=== PATIENT | female | born 1945 | race Caucasian/White ===

== ENCOUNTER → 2017-09-15 | Outpatient (CLI) | payer BC ==
[~2017-09-15] MED LIST: AMLO2.5T PO; BNC/40 PO; NXM/40 PO; RANI300T2 PO; SIMV5TAB2 PO
--- NOTE | 2017-09-18 08:13 | MAMMOGRAPHY REPORT ---
BILATERAL DIGITAL SCREENING MAMMOGRAM TOMOSYNTHESIS WITH CAD: 09/15/2017 CLINICAL HISTORY: Routine screening. Patient has no complaints. TECHNIQUE: Breast tomosynthesis in addition to standard 2D mammography was performed. Current study was also evaluated with a Computer Aided Detection (CAD) system. COMPARISON: Comparison is made to exams dated: 08/20/2016 mammogram, 08/17/2015 mammogram, 12/25/2014 ultrasound, 12/25/2014 mammogram, 06/19/2014 aspiration, and 06/01/2014 ultrasound - [facility]. BREAST COMPOSITION: There are scattered areas of fibroglandular density in both breasts. FINDINGS: No suspicious masses, calcifications, or areas of architectural distortion are noted in ei ther breast. There has been no significant interval change compared to prior exams. Scattered bilater al benign-appearing calcifications are not significantly changed. Circumscribed benign-appearing 9 m m mass in the left 9:00 breast is again noted, and returned represent a benign cyst on prior ultrasou nd exams. IMPRESSION: ACR BI-RADS CATEGORY 2: BENIGN There is no mammographic evidence of malignancy. A 1 year screening mammogram is recommended. The pa tient will receive written notification of the results. Approximately 10% of breast cancers are not detected with mammography. A negative mammographic report should not delay biopsy if a clinically suggestive mass is present. Miya Lagos M.D. /:09/15/2017 15:53:48 Bean Roaster: Lisa HODGESR, M, [facility] letter sent: Normal 1/2 BI-RADS Code: ACR BI-RADS Category 2: Benign
== END | disposition home or self-care (01) ==
LOC: C.MAMM 15:15
PROVIDERS: ATTEND Internal Medicine
DX: Z12.31 Encounter for screening mammogram for malignant neoplasm of breast (principal)

== ENCOUNTER 2017-09-30 18:44 | Emergency (ER) | payer BC ==
[~2017-09-30] VITALS: Ht 167.6 cm; Wt 64.3 kg
[2017-09-30 18:48] VITALS: TEMP 36.8; Ht 167.6 cm; Wt 64.3 kg
[2017-09-30] MEDS ORDERED: DIAZEPAM INJ 5 MG/ML 2 ML CARP IV STA (19:25)
--- NOTE | 2017-09-30 19:25 | EMERGENCY ROOM VISIT NOTE ---
History Report prepared by Stevan: Catrina Archuleta Under the Supervision of: Gabi BarclayO. First contact with patient: 18:58 Chief Complaint: HEADACHE Stated Complaint: HEADACHE,BLURRED VISION,BRUISING L EYE History of Present Illness The patient is a 72 year old female who presents to the Emergency Room with complaints of an intermittent left sided headache beginning 5 days ago. Four days ago, the patient states she had some redness to the skin below her left eye and a headache. She also reports pain that starts in her left shoulder and radiates to her left sided neck. She states this pain resides when she pushes on her neck. She reports the redness to the skin under her left eye dissipated 3 days ago. The patient notes some nausea, fatigue, lightheadedness, room spinning, and blurry vision. She states that she used to get migraines and a "headache in her eyes" about 10 years ago. She denies any more current history of headache. The patient reports she has been exercising more but denies any recent falls or injury. Pt denies arm pain, numbness, tingling, light sensitivity, fevers, chest pain, shortness of breath, vomiting, diarrhea, pain with urination, and melena. Source of History: patient Onset: 5 days ago Position: head Quality: ache Timing: intermittent Modifying Factors (Relieving): other (pushing on neck) Associated Symptoms: + headache, + neck pain, + nausea, + fatigue, No chest pain, No SOB, No vomiting, No urinary symptoms, No numbness Review of Systems See HPI for pertinent positives & negatives. A total of 10 systems reviewed and were otherwise negative. Past Medical & Surgical Medical Problems: (1) No Known Active Medical Problems Family History Patient reports no known family medical history. Social History Smoking Status: Never Smoker Marital Status: Housing Status: lives with significant other Occupation Status: retired Current/Historical Medications Scheduled Amlodipine (Norvasc), 2 TAB PO QAM Aspirin (Aspirin Ec), 81 MG PO DAILY Calcium Carbonate-Vitamin D (Calcium Plus Vitamin D), 2 CAP PO DAILY Chlorhexidine Gluconate (Chlorhexidine Gluconate), 1 DOSE PO UD Glucosamine Sulfate (Glucosamine), 1,000 MG PO DAILY Losartan Potassium (Cozaar), 1 TAB PO DAILY Multiple Vitamin (Multivitamin), 1 TAB PO DAILY Simvastatin (Simvastatin), 1 TAB PO QPM Allergies Coded Allergies: Lidocaine (Verified Allergy, Unknown, ., 09/30/17) Aspirin (Verified Adverse Reaction, Severe, HX OF ULCERS, 09/30/17) Physical Exam Vital Signs Date Time Temp Pulse Resp B/P (MAP) Pulse Ox O2 Delivery O2 Flow Rate FiO2 09/30/17 21:00 57 18 147/62 97 Room Air 09/30/17 18:48 36.8 64 20 161/74 97 Room Air Physical Exam GENERAL: alert, well appearing, well nourished, no distress, non-toxic EYE EXAM: normal conjunctiva, PERRL and EOM's grossly intact, no pain with palpation over temples and no abnormalities noted during palpation of temporal area OROPHARYNX: no exudate, no erythema, lips, buccal mucosa, and tongue normal and mucous membranes are moist NECK: supple, no nuchal rigidity, no adenopathy, non-tender LUNGS: Clear to auscultation. Normal chest wall mechanics HEART: no murmurs, S1 normal and S2 normal ABDOMEN: abdomen soft, non-tender, normo-active bowel sounds, no masses, no rebound or guarding. BACK: Back is symmetrical on inspection and there is no deformity, no midline tenderness, no CVA tenderness. SKIN: no rashes and no bruising UPPER EXTREMITIES: upper extremities are grossly normal. Mild increased hypertonicity noted in bilateral trapezius muscles. No bony tenderness at shoulder, full range of motion bilaterally. LOWER EXTREMITIES: No pitting edema. NEURO EXAM: Normal sensorium, cranial nerves II-XII intact, normal speech, no weakness of arms, no weakness of legs. No drift. Finger to nose intact. Gross sensation intact. Medical Decision & Procedures ER Provider Diagnostic Interpretation: Radiology results have been interpreted by the radiologist and reviewed by me. CT ANGIOGRAM OF THE BRAIN COMBO FINDINGS: Brain parenchyma: The brain parenchyma is normal in appearance. There is no hemorrhage, mass effect, or evidence of acute territorial ischemia by CT criteria. There is no evidence of enhancing mass lesion on the angiogram phase images. No extra-axial fluid collection is seen. White-white matter differentiation is preserved. Ventricles, sulci, and cisterns: Normal in configuration. CT angiogram of the brain: The [place] of [place] is developmentally complete. The internal carotid arteries are widely patent, as are the anterior and middle cerebral arteries. The vertebrobasilar system and posterior cerebral arteries are widely patent. The left vertebral artery is dominant. There is no aneurysm, high-grade stenosis, or focal vessel cutoff identified throughout the intracranial circulation. Dural sinuses: Clear as visualized. Orbits: The bony orbits are intact. The orbital contents are normal as visualized. Sinuses and mastoids: The visualized paranasal sinuses are clear. The mastoid air cells are well pneumatized. Calvarium: Unremarkable. IMPRESSION: 1. There is no hemorrhage, mass effect, or evidence of acute territorial ischemia by CT criteria. 2. Unremarkable CT angiogram of the brain. Electronically signed by: Luis Daniel Puente M.D. Laboratory Results 09/30/17 19:40 Red Blood Count 4.62, Mean Corpuscular Volume 87.0, Mean Corpuscular Hemoglobin 28.4, Mean Corpuscular Hemoglobin Concent 32.6, Mean Platelet Volume 9.8, Neutrophils (%) (Auto) 60.0, Lymphocytes (%) (Auto) 29.8, Monocytes (%) (Auto) 5.4, Eosinophils (%) (Auto) 4.3, Basophils (%) (Auto) 0.4, Neutrophils # (Auto) 4.86, Lymphocytes # (Auto) 2.41, Monocytes # (Auto) 0.44, Eosinophils # (Auto) 0.35, Basophils # (Auto) 0.03 09/30/17 19:40 Test 09/30/17 19:40 White Blood Count 8.10 K/uL (4.8-10.8) Red Blood Count 4.62 M/uL (4.2-5.4) Hemoglobin 13.1 g/dL (12.0-16.0) Hematocrit 40.2 % (37-47) Mean Corpuscular Volume 87.0 fL (80-100) Mean Corpuscular Hemoglobin 28.4 pg (25-34) Mean Corpuscular Hemoglobin Concent 32.6 g/dl (32-36) Platelet Count 265 K/uL (130-400) Mean Platelet Volume 9.8 fL (7.4-10.4) Neutrophils (%) (Auto) 60.0 % Lymphocytes (%) (Auto) 29.8 % Monocytes (%) (Auto) 5.4 % Eosinophils (%) (Auto) 4.3 % Basophils (%) (Auto) 0.4 % Neutrophils # (Auto) 4.86 K/uL (1.4-6.5) Lymphocytes # (Auto) 2.41 K/uL (1.2-3.4) Monocytes # (Auto) 0.44 K/uL (0.11-0.59) Eosinophils # (Auto) 0.35 K/uL (0-0.5) Basophils # (Auto) 0.03 K/uL (0-0.2) RDW Standard Deviation 42.8 fL (36.4-46.3) RDW Coefficient of Variation 13.4 % (11.5-14.5) Immature Granulocyte % (Auto) 0.1 % Immature Granulocyte # (Auto) 0.01 K/uL (0.00-0.02) Anion Gap 4.0 mmol/L (3-11) Est Creatinine Clear Calc Drug Dose 74.3 ml/min Estimated GFR () 103.5 Estimated GFR (Non- 89.3 BUN/Creatinine Ratio 24.0 (10-20) Calcium Level 8.7 mg/dl (8.5-10.1) Total Bilirubin 0.3 mg/dl (0.2-1) Aspartate Amino Transf (AST/SGOT) 18 U/L (15-37) Alanine Aminotransferase (ALT/SGPT) 31 U/L (12-78) Alkaline Phosphatase 115 U/L (45-117) Troponin I < 0.015 ng/ml (0-0.045) Total Protein 7.4 gm/dl (6.4-8.2) Albumin 3.8 gm/dl (3.4-5.0) Globulin 3.6 gm/dl (2.5-4.0) Albumin/Globulin Ratio 1.1 (0.9-2) Thyroid Stimulating Hormone (TSH) 1.300 uIu/ml (0.300-4.500) Laboratory results per my review. Medications Administered Medications (Trade) Dose Ordered Sig/Lavinia Route Start Time Stop Time Status Last Admin Dose Admin Diazepam (Valium Inj) 2.5 mg NOW STAT IV 09/30/17 19:25 09/30/17 19:26 DC 09/30/17 19:25 2.5 MG Ketorolac Tromethamine (Toradol Inj) 15 mg NOW STAT IV 09/30/17 21:13 09/30/17 21:14 DC 09/30/17 21:30 15 MG ED Course 1902: The patient was evaluated in room C7. A complete history and physical exam was performed. 1924: Ordered Valium Inj 2.5 mg IV. 2112: Ordered Toradol 15 mg IV. 2116: I updated the patient on her test results. She is resting comfortably. 2128: Upon reevaluation, the patient is feeling better. I discussed the findings and the treatment plan with the patient. She verbalizes agreement and understanding. The patient was discharged home. Medical Decision Differential diagnosis: Etiologies such as migraine headache, meningitis, sinusitis, CO exposure, ICH, SAH, infection, tumor, headache, sinus thrombosis, arterial dissection, as well as others were entertained. Patient well-appearing here and symptoms most consistent with a tension headache versus atypical migraine or combination of the tube. I do not suspect temporal arteritis, dissection, subarachnoid hemorrhage, meningitis. Patient with a normal nonfocal neuro exam, no other symptoms noted. Given symptoms greater than 8 hours and a negative troponin I do not suspect this is an atypical presentation of ACS. She well-appearing here hemodynamically stable throughout, agreeable with plan for close follow-up and continue monitoring of her symptoms. Encouraged adequate hydration, avoiding any additional upper body exertion or strenuous lifting in the short-term. Discussed symptoms to watch and return for, she verbalized understanding was agreeable with plan. Medication Reconcilliation Current Medication List: was personally reviewed by me Blood Pressure Screening Patient's blood pressure: Elevated blood pressure Blood pressure disposition: Elevated BP felt to be situational Impression Primary Impression: Headache Scribe Attestation The scribe's documentation has been prepared under my direction and personally reviewed by me in its entirety. I confirm that the note above accurately reflects all work, treatment, procedures, and medical decision making performed by me. Departure Information Dispostion Home / Self-Care Referrals Simba Ray M.D. (PCP) Forms HOME CARE DOCUMENTATION FORM, IMPORTANT VISIT INFORMATION Patient Instructions My [facility] Additional Instructions Please follow up with your family doctor as a precaution. You may use Tylenol as needed for headaches, and may apply a warm compress or heating pad to the left shoulder as needed. Do not leave it on any longer than 30 minutes. If you develop recurrent or worsening headaches or shoulder pain, develop numbness or tingling, vision changes, dizziness, vomiting, fevers, or you have any other new concerns, please return the emergency room. Problem Qualifiers Primary Impression: Headache Headache type: unspecified Headache chronicity pattern: episodic headache Intractability: not intractable Qualified Codes: R51 - Headache
[2017-09-30] MEDS ORDERED: OPTIRAY 320 IV PRN (19:30)
[2017-09-30] MEDS ORDERED: PRDUDL5 PO (19:38)
[2017-09-30] MEDS ORDERED: LOSA100T65 PO (19:38)
[2017-09-30] MEDS ORDERED: MULTTAB58 PO (19:38)
[2017-09-30] MEDS ORDERED: SIMV-151 PO (19:38)
[2017-09-30] MEDS ORDERED: GLUC10007 PO (19:38)
[2017-09-30] MEDS ORDERED: ASPI81TA28 PO (19:38)
[2017-09-30] MEDS ORDERED: CALCCAP7 PO (19:38)
[2017-09-30 19:54] LABS: BASO % 0.4 %; BASO ABS # 0.03 K/uL (0-0.2); COMPLETE YES; EOS % 4.3 %; HEMATOCRIT 40.2 % (37-47); IG% 0.1 %; LYMPH % 29.8 %; LYMPH ABS # 2.41 K/uL (1.2-3.4); MEAN CORPUSCULAR HEMOGLOBIN 28.4 pg (25-34); MEAN CORPUSCULAR HGB CONC 32.6 g/dl (32-36); MEAN PLATELET VOLUME 9.8 fL (7.4-10.4); MONO % 5.4 %; PLATELET COUNT 265 K/uL (130-400); RED BLOOD COUNT 4.62 M/uL (4.2-5.4)
[2017-09-30 20:14] LABS: ALT/SGPT 31 U/L (12-78); AST/SGOT 18 U/L (15-37); BLOOD UREA NITROGEN 16 mg/dl (7-18); CALCIUM 8.7 mg/dl (8.5-10.1); CARBON DIOXIDE 29 mmol/L (21-32); CHLORIDE 106 mmol/L (98-107); CREATININE 0.65 mg/dl (0.60-1.20); GLUCOSE 117 mg/dl (70-99); POTASSIUM 3.6 mmol/L (3.5-5.1); SODIUM 139 mmol/L (136-145)
[2017-09-30 20:25] LABS: ALB/GLOB RATIO 1.1 (0.9-2); ALKALINE PHOSPHATASE 115 U/L (45-117)
[2017-09-30 21:00] VITALS: BP 147/62; PULSE 57; O2SAT 97
--- NOTE | 2017-09-30 21:06 | DIAGNOSTIC IMAGING REPORT ---
CT ANGIOGRAM OF THE BRAIN COMBO CLINICAL HISTORY: Headache. COMPARISON STUDY: CT of the brain dated 11/20/2011. TECHNIQUE: Unenhanced axial CT scan of the brain is performed. Subsequently, following the IV administration of 120 cc of Optiray 320, CT angiogram of the brain was performed from the skull base to the vertex. Images are reviewed in the axial, sagittal, and coronal planes. 3-D MIPS images are created and assessed. IV contrast was administered without complication. A dose lowering technique was utilized adhering to the principles of ALARA. CT DOSE: 661.08 mGy.cm FINDINGS: Brain parenchyma: The brain parenchyma is normal in appearance. There is no hemorrhage, mass effect, or evidence of acute territorial ischemia by CT criteria. There is no evidence of enhancing mass lesion on the angiogram phase images. No extra-axial fluid collection is seen. White-white matter differentiation is preserved. Ventricles, sulci, and cisterns: Normal in configuration. CT angiogram of the brain: The [place] is developmentally complete. The internal carotid arteries are widely patent, as are the anterior and middle cerebral arteries. The vertebrobasilar system and posterior cerebral arteries are widely patent. The left vertebral artery is dominant. There is no aneurysm, high-grade stenosis, or focal vessel cutoff identified throughout the intracranial circulation. Dural sinuses: Clear as visualized. Orbits: The bony orbits are intact. The orbital contents are normal as visualized. Sinuses and mastoids: The visualized paranasal sinuses are clear. The mastoid air cells are well pneumatized. Calvarium: Unremarkable. IMPRESSION: 1. There is no hemorrhage, mass effect, or evidence of acute territorial ischemia by CT criteria. 2. Unremarkable CT angiogram of the brain. Electronically signed by: Luis Daniel Puente M.D. 09/30/2017 9:05 PM Dictated Date/Time: 09/30/2017 9:00 PM
[2017-09-30] MEDS ORDERED: KETOROLAC TROMETHAMINE 30 MG/ML VIAL IV STA (21:13)
== END 2017-09-30 21:40 | disposition home or self-care (01) ==
LOC: C.EDB 18:46 → C.EDC 21:40
DX: R51 Headache (principal)

== ENCOUNTER → 2017-10-02 | Outpatient (CLI) | payer BC ==
[~2017-10-02] MED LIST changes: +ASPI81TA28 PO; -BNC/40 PO; +CALCCAP7 PO; +GLUC10007 PO; +LOSA100T65 PO; +MULTTAB58 PO; -NXM/40 PO; +PRDUDL5 PO; -RANI300T2 PO; +SIMV-151 PO; -SIMV5TAB2 PO
== END | disposition home or self-care (01) ==
LOC: C.LABBC 10:16
PROVIDERS: ATTEND Internal Medicine
DX: R51 Headache (principal)

== ENCOUNTER → 2018-05-19 | Outpatient (CLI) | payer BC ==
[~2018-05-19] MED LIST changes: +CHOL1000 PO; -PRDUDL5 PO
[2018-05-19 13:24] LABS: ALT/SGPT 36 U/L (12-78); AST/SGOT 22 U/L (15-37); BLOOD UREA NITROGEN 13 mg/dl (7-18); CALCIUM 8.5 mg/dl (8.5-10.1); CARBON DIOXIDE 28 mmol/L (21-32); CHOLESTEROL 120 mg/dl (0-200); CREATININE 0.73 mg/dl (0.60-1.20); GLUCOSE 117 mg/dl (70-99); LDL CHOLESTEROL CALCULATED 47 mg/dl; SODIUM 141 mmol/L (136-145)
[2018-05-19 13:29] LABS: HEMOGLOBIN A1C 6.2 % (4.5-5.6)
[2018-05-19 14:27] LABS: CREATININE RANDOM URINE 62.6 mg/dl
== END | disposition home or self-care (01) ==
LOC: C.LABBC 07:52
PROVIDERS: ATTEND Internal Medicine
DX: I10 Essential (primary) hypertension (principal); E78.5 Hyperlipidemia, unspecified; E11.9 Type 2 diabetes mellitus without complications

== ENCOUNTER → 2018-06-08 | Outpatient (CLI) | payer BC | END | disposition home or self-care (01) | LOC: C.PAPS 14:47 | PROVIDERS: ATTEND Obstetrics & Gynecology | DX: Z12.4 Encounter for screening for malignant neoplasm of cervix (principal); Z78.0 Asymptomatic menopausal state ==

== ENCOUNTER 2021-04-25 12:26 | Observation (INO) ==
[2021-04-25 12:50] LABS: Basophils # (auto) 0.02 K/uL (0-0.2); Basophils % (auto) 0.3 %; Eosinophils # (auto) 0.13 K/uL (0-0.5); Eosinophils % (auto) 1.8 %; Hematocrit (blood only) 38.8 % (37-47); Hemoglobin 13.5 g/dL (12.0-16.0); Immature Granulocytes # (auto) 0.02 K/uL (0.00-0.02); Immature Granulocytes % (auto) 0.3 %; Lymphocytes # (auto) 1.56 K/uL (1.2-3.4); Lymphocytes % (auto) 21.3 %; Mean Corpuscular Hemoglobin 30.4 pg (25-34); Mean Corpuscular Hgb Conc 34.8 g/dL (32-36); Mean Corpuscular Volume 87.4 fL (80-100); Monocytes # (auto) 0.49 K/uL (0.11-0.59); Monocytes % (auto) 6.7 %; Neutrophils % (auto) 69.6 %; Platelet Count 234 K/uL (130-400); RDW Coefficient of Variation 13.3 % (11.5-14.5); RDW Standard Deviation 42.8 fL (36.4-46.3); Red Blood Count 4.44 M/uL (4.2-5.4); White Blood Count 7.32 K/uL (4.8-10.8)
--- NOTE | 2021-04-25 13:02 | XRay Report ---
XR chest 1V portable HISTORY: weakness COMPARISON: None. FINDINGS: The lungs are clear. Cardiac silhouette is normal in size. No pleural effusions. No pneumot horax. IMPRESSION: No acute process. ACT 112: Negative or not required by law. Electronically signed by: Juan Martinez M.D. 04/25/2021 1:01 PM
[2021-04-25 13:03] LABS: Alanine Aminotransferase 36 U/L (12-78); Albumin Level 4.1 gm/dl (3.4-5.0); Aspartate Aminotransferase 20 U/L (15-37); BUN Creatinine Ratio 29.1 (10-20); Blood Urea Nitrogen 18 mg/dl (7-18); Calcium 9.5 mg/dl (8.5-10.1); Carbon Dioxide 29 mmol/L (21-32); Chloride 107 mmol/L (98-107); Creatinine Clr Calc Pharmacy 67.7 ml/min; Est GFR (African American) 102.4 ml/min; Est GFR (Non-African American) 88.4 ml/min; Glucose 149 mg/dl (70-99); Potassium 3.6 mmol/L (3.5-5.1); Sodium 140 mmol/L (136-145)
[2021-04-25 13:14] LABS: Albumin Globulin Ratio 1.2 (0.9-2); Alkaline Phosphatase 93 U/L (45-117); Bilirubin,Total 0.6 mg/dl (0.2-1); Globulin 3.3 gm/dl (2.5-4.0); Total Protein 7.4 gm/dl (6.4-8.2); Troponin I < 0.015 ng/ml (0-0.045)
--- NOTE | 2021-04-25 14:08 | Emergency Department Note ---
Impression & Plan Vasovagal syncope, Dehydration ED Provider Note NAME: CHAD DAY AGE: 75 SEX: F : 1945 ARRIVES VIA: Ambulance INFORMANT: Patient, ED PROVIDER(S): Rah Davidson MD Chief Complaint: Syncope HPI: Patient does present from home due to concern for syncope which occurred around 11 AM this morning. The patient was on the toilet trying to have a bowel movement at which time the patient did have some intestinal cramping. The patient syncopal event lasted approximately 30 seconds per the who witnessed this. She did not fall or strike her head. He was able to wake her up on the commode. Patient did have one episode of vomiting in route in the ambulance. The patient did receive Zofran which improved her symptoms. The patient denies any headache, neck pain, chest pain, shortness of breath. Patient has no lower extremity swelling. No infectious symptoms. The patient is vaccinated for Covid. The patient denies any alcohol or tobacco use. Patient believes that she has been eating and drinking appropriately the last several days. The patient has greatly reduced her carbs as her primary care physician had advised that she needs to monitor her sugars. Patient denies any numbness tingling or focal weakness. ROS: See HPI for pertinent positives and negatives. A total of 10 systems were reviewed and otherwise negative. Past medical history: See below Surgical history: See below Social history: See below Physical Exam: GENERAL: Fatigued in appearance, no apparent distress, wearing a mask. EYE EXAM: Normal conjunctiva. PERRL, no anisocoria and EOM's grossly intact w/o pain. NECK: Supple, no nuchal rigidity, no adenopathy, non-tender. No signs of meningismus. LUNGS: Clear to auscultation. Normal chest wall mechanics. HEART: Bradycardic and regular, no MRG. ABDOMEN: Abdomen soft, non-tender, normo-active bowel sounds, no masses, no rebound or guarding. BACK: No CVA TTP. SKIN: No rashes and no bruising. UPPER EXTREMITIES: Upper extremities are grossly normal. LOWER EXTREMITIES: Grossly normal, no edema. NEURO EXAM: Opens eyes to voice, follows commands, cranial nerves II-XII grossly intact, normal speech, moves all 4 extremities on command w/o issue. Differential diagnoses: Vasovagal event, dehydration, infection, hypoglycemia, electrolyte abnormalities, cardiac sources, intracerebral event, pulmonary embolism, seizure, toxicologic, neurologic, as well as other pathologies. Course: Patient was seen and evaluated the bedside. Full history physical exam was performed. EKG interpreted by me Sinus bradycardia, rate of 51, normal intervals, normal axis, no ST changes or T WI. No significant change from comparison EKG 08/21/2012 Imaging Studies: See below Cardiac monitoring: An order was placed for continuous cardiac monitoring. The monitor shows a rate of 52 with sinus bradycardia rhythm. MDM: Patient does present with concern for syncope which sounds vasovagal in nature as the patient was on the toilet. No reported seizure-like activity or trauma. Patient has been decreasing her carb intake which may also be contributory. Patient did receive IV fluids. Blood work grossly unremarkable. EKG with sinus bradycardia. Patient has no chest pains or shortness of breath and has had nausea. Given the patient's age with syncope and the fact that the patient is fairly weak it is to the on-call hospitalist. Patient was admitted by Dr. Mendenhall. Past Med/Surg History Medical History (Updated 04/25/21 @ 15:55 by Rah Davidson MD) Abnormal Pap smear of cervix Chronic headaches Diabetes mellitus Erosive osteoarthritis of hands, bilateral GERD without esophagitis Headache Hiatal hernia Hyperlipidemia Hyperplastic colon polyp Hypertension Laryngopharyngeal reflux Muscle spasm Neck pain No known health problems Non-smoker Osteopenia Pain in joint of left shoulder Postmenopausal atrophic vaginitis Right knee pain Solitary thyroid nodule Vasovagal syncope Vitamin D deficiency Voice hoarseness Surgical History H/O colonoscopy 08/01, neg, due in 10 years H/O dilation and curettage H/O oral surgery History of appendectomy History of cryosurgery cervix Hx of tonsillectomy S/P arthroscopy of knee Family History Mother Thyroid disorder Malignant melanoma Alzheimer disease Father Pancreatic neoplasm Cancer Denies family history of Ovarian cancer Breast cancer Bleeding disorder Colorectal cancer Social History Smoking Status: Never smoker Second Hand Exposure: No; Hx Alcohol Use: Yes (Special occassionally ) Alcohol Intake Frequency: Monthly or Less Hx Substance Use: No Preferred Language: Turkmen Visual Impairment: No Limitations Hearing Ability: Normal marital status: Current Living Situation: Spouse current occupational status: retired Feels Safe at Home: Yes Childhood Exposure to Second-Hand Smoke: No Dental Care, Regularly: Yes Physical Activity Frequency: Daily Seatbelt Use: always Sunscreen Use: Yes Allergies Allergies Allergy/AdvReac Type Severity Reaction Status Date / Time lidocaine Allergy Unknown FAINT Verified 04/10/21 11:04 procaine [From Novocain] Allergy Unknown Verified 04/10/21 11:04 Home Meds Home Medications Medication Instructions Recorded Confirmed cholecalciferol (vitamin D3) 25 1,000 units PO DAILY 05/18/19 04/10/21 mcg (1,000 unit) capsule calcium citrate 315 mg 1 tab PO BID tab 09/13/19 04/10/21 calcium-vitamin D3 6.25 mcg (250 unit) tablet glucosamine sulfate 500 mg capsule 500 mg PO DAILY cap 09/13/19 04/10/21 multivitamin 1 tab PO DAILY 04/25/21 04/25/21 Previous Rx's Medication Instructions Recorded simvastatin 20 mg tablet 20 mg PO DAILY #90 tab 08/06/20 telmisartan 40 mg tablet 40 mg PO DAILY #90 tab 10/24/20 famotidine 20 mg tablet 20 mg PO DAILY 42 Days #42 tab 01/30/21 fluticasone propionate 50 2 spray INTRANASAL DAILY #15.8 g 01/30/21 mcg/actuation nasal spray,suspension amlodipine 5 mg tablet 5 mg PO DAILY #90 tab 04/15/21 blood sugar diagnostic #100 ea 04/16/21 blood-glucose meter #1 ea 04/16/21 lancets #100 ea 04/17/21 Results & Data (ED) Vital Signs Vital Signs - 24 hr 04/25/21 12:30 04/25/21 12:31 04/25/21 14:03 Temperature 36.4 C L Temperature Source Oral Pulse Rate - Lying Pulse Rate - Sitting Pulse Rate - Standing Pulse Rate 47 L 50 L 50 L Pulse Rate from SpO2 Sensor 47 L 51 L Pulse Rhythm Regular Pulse Strength Normal Respiratory Rate 3 L 15 12 Respiratory Effort / Characteristics Non-Labored Spontaneous Respiratory Depth Normal Respiratory Pattern Regular Blood Pressure - Lying Blood Pressure - Sitting Blood Pressure- Standing Blood Pressure 145/56 H 145/56 H 116/45 L Blood Pressure Mean 85 85 68 Blood Pressure Position Lying Pulse Oximetry 98 98 96 Oxygen Delivery Method Room Air Sepsis Recent Fever Within 48 Hours No Sepsis New/Unexplained Change in Mental Status N/A Sepsis Action Taken by Nursing No Action Required 04/25/21 15:43 Temperature Temperature Source Pulse Rate - Lying 60 Pulse Rate - Sitting 61 Pulse Rate - Standing 64 Pulse Rate Pulse Rate from SpO2 Sensor Pulse Rhythm Pulse Strength Respiratory Rate Respiratory Effort / Characteristics Respiratory Depth Respiratory Pattern Blood Pressure - Lying 136/58 L Blood Pressure - Sitting 137/57 L Blood Pressure- Standing 127/60 Blood Pressure Blood Pressure Mean Blood Pressure Position Pulse Oximetry Oxygen Delivery Method Sepsis Recent Fever Within 48 Hours Sepsis New/Unexplained Change in Mental Status Sepsis Action Taken by Custodial Medications Current Medication List: was personally reviewed by me Laboratory Data Attestation: I reviewed the patient's lab results. Result diagrams: 04/25/21 12:35 04/25/21 12:35 Lab Results 04/25/21 04/25/21 04/25/21 Range/Units 12:35 12:35 12:35 WBC 7.32 (4.8-10.8) K/uL RBC 4.44 (4.2-5.4) M/uL Hgb 13.5 (12.0-16.0) g/dL Hct 38.8 (37-47) % MCV 87.4 (80-100) fL MCH 30.4 (25-34) pg MCHC 34.8 (32-36) g/dL RDW Std Deviation 42.8 (36.4-46.3) fL RDW Coeff of Omar 13.3 (11.5-14.5) % Plt Count 234 (130-400) K/uL MPV 10.0 (7.4-10.4) fL Immature Gran % (Auto) 0.3 % Neut % (Auto) 69.6 % Lymph % (Auto) 21.3 % Isabela % (Auto) 6.7 % Eos % (Auto) 1.8 % Baso % (Auto) 0.3 % Neut # (Auto) 5.10 (1.4-6.5) K/uL Lymph # (Auto) 1.56 (1.2-3.4) K/uL Isabela # (Auto) 0.49 (0.11-0.59) K/uL Eos # (Auto) 0.13 (0-0.5) K/uL Baso # (Auto) 0.02 (0-0.2) K/uL Immature Gran # (Auto) 0.02 (0.00-0.02) K/uL Sodium 140 (136-145) mmol/L Potassium 3.6 (3.5-5.1) mmol/L Chloride 107 (98-107) mmol/L Carbon Dioxide 29 (21-32) mmol/L Anion Gap 4.0 (3-11) BUN 18 (7-18) mg/dl Creatinine 0.63 (0.6-1.2) mg/dl Est Cr Clr Drug Dosing 67.7 ml/min Est GFR ( Amer) 102.4 ml/min Est GFR (Non-Af Amer) 88.4 ml/min BUN/Creatinine Ratio 29.1 H (10-20) Glucose 149 H (70-99) mg/dl Calcium 9.5 (8.5-10.1) mg/dl Magnesium 2.5 H (1.8-2.4) mg/dl Total Bilirubin 0.6 (0.2-1) mg/dl AST 20 (15-37) U/L ALT 36 (12-78) U/L Alkaline Phosphatase 93 (45-117) U/L Troponin I < 0.015 (0-0.045) ng/ml Total Protein 7.4 (6.4-8.2) gm/dl Albumin 4.1 (3.4-5.0) gm/dl Globulin 3.3 (2.5-4.0) gm/dl Albumin/Globulin Ratio 1.2 (0.9-2) TSH 1.830 1.820 (0.300-4.500) uIu/ml Urine Color Urine Appearance (Clear) Urine pH (4.5-7.5) Ur Specific [place] (1.000-1.030) Urine Protein (Negative) Urine Glucose (UA) (Negative) Urine Ketones (Negative) Urine Blood (Negative) Urine Nitrite (Negative) Urine Bilirubin (Negative) Urine Urobilinogen (Negative) Ur Leukocyte Esterase (Negative) Urine WBC (Auto) (0-5) /hpf Urine RBC (Auto) (0-4) /hpf U Hyaline Cast (Auto) (0-5) /lpf U Epithel Cells (Auto) (0-5) /lpf Urine Bacteria (Auto) (Negative) COVID-19 Eval Order 04/25/21 04/25/21 Range/Units 15:00 15:20 WBC (4.8-10.8) K/uL RBC (4.2-5.4) M/uL Hgb (12.0-16.0) g/dL Hct (37-47) % MCV (80-100) fL MCH (25-34) pg MCHC (32-36) g/dL RDW Std Deviation (36.4-46.3) fL RDW Coeff of Omar (11.5-14.5) % Plt Count (130-400) K/uL MPV (7.4-10.4) fL Immature Gran % (Auto) % Neut % (Auto) % Lymph % (Auto) % Isabela % (Auto) % Eos % (Auto) % Baso % (Auto) % Neut # (Auto) (1.4-6.5) K/uL Lymph # (Auto) (1.2-3.4) K/uL Isabela # (Auto) (0.11-0.59) K/uL Eos # (Auto) (0-0.5) K/uL Baso # (Auto) (0-0.2) K/uL Immature Gran # (Auto) (0.00-0.02) K/uL Sodium (136-145) mmol/L Potassium (3.5-5.1) mmol/L Chloride (98-107) mmol/L Carbon Dioxide (21-32) mmol/L Anion Gap (3-11) BUN (7-18) mg/dl Creatinine (0.6-1.2) mg/dl Est Cr Clr Drug Dosing ml/min Est GFR ( Amer) ml/min Est GFR (Non-Af Amer) ml/min BUN/Creatinine Ratio (10-20) Glucose (70-99) mg/dl Calcium (8.5-10.1) mg/dl Magnesium (1.8-2.4) mg/dl Total Bilirubin (0.2-1) mg/dl AST (15-37) U/L ALT (12-78) U/L Alkaline Phosphatase (45-117) U/L Troponin I (0-0.045) ng/ml Total Protein (6.4-8.2) gm/dl Albumin (3.4-5.0) gm/dl Globulin (2.5-4.0) gm/dl Albumin/Globulin Ratio (0.9-2) TSH (0.300-4.500) uIu/ml Urine Color Yellow Urine Appearance Cloudy A (Clear) Urine pH 8.0 H (4.5-7.5) Ur Specific [place] 1.010 (1.000-1.030) Urine Protein Negative (Negative) Urine Glucose (UA) Negative (Negative) Urine Ketones Trace H (Negative) Urine Blood Negative (Negative) Urine Nitrite Negative (Negative) Urine Bilirubin Negative (Negative) Urine Urobilinogen Negative (Negative) Ur Leukocyte Esterase Negative (Negative) Urine WBC (Auto) 1-5 (0-5) /hpf Urine RBC (Auto) 0-4 (0-4) /hpf U Hyaline Cast (Auto) 1-5 (0-5) /lpf U Epithel Cells (Auto) 5-10 H (0-5) /lpf Urine Bacteria (Auto) Negative (Negative) COVID-19 Eval Order Covid19 at [facility] Administered Medications Discontinued Medications Sodium Chloride (Nss 1000ml) 1,000 mls @ 999 mls/hr IV .[id number] G[place] Stop: 04/25/21 15:15 Last Infusion: 04/25/21 15:36 Dose: 0 mls/hr Documented by: [id number] Admin: 04/25/21 14:18 Dose: 999 mls/hr Documented by: [id number] Ondansetron HCl (Ondansetron Inj 2 Mg/Ml 2 Ml Vial) 4 mg IV NOW STA Stop: 04/25/21 14:13 Last Admin: 04/25/21 14:18 Dose: 4 mg Documented by: [id number] Imaging Data Radiologist's Impression: Chest X-Ray 04/25/21 12:45 XR chest 1V portable HISTORY: weakness COMPARISON: None. FINDINGS: The lungs are clear. Cardiac silhouette is normal in size. No pleural effusions. No pneumothorax. IMPRESSION: No acute process. ACT 112: Negative or not required by law. Electronically signed by: Juan Martinez M.D. 04/25/2021 1:01 PM Discharge Plan Visit Data Chief Complaint: Syncope (Near Syncope) Stated Complaint: SYNCOPE, ILLNESS ED Provider: Rah Davidson Discharge Problem: Vasovagal syncope, Dehydration Forms Stand Alone Forms: My [facility] Prescriptions Prescriptions: No Action simvastatin 20 mg tablet 20 mg PO DAILY Qty: 90 RF: 3 telmisartan [Micardis] 40 mg tablet 40 mg PO DAILY Qty: 90 RF: 3 amlodipine 5 mg tablet 5 mg PO DAILY Qty: 90 RF: 3 (DME) blood-glucose meter [iZettleTouch Verio Flex Start] Kit See Rx Instructions .ROUTE .MEDSUPPLY Qty: 1 RF: 0 (DME) OneTouch Verio test strips Strip See Rx Instructions .ROUTE .MEDSUPPLY Qty: 100 RF: 0 (DME) lancets [iZettleTouch UltraSoft Lancets] Misc See Rx Instructions .ROUTE .MEDSUPPLY Qty: 100 RF: 3 famotidine [Acid Business Account Leader (famotidine)] 20 mg tablet 20 mg PO DAILY 42 Days Qty: 42 RF: 6 fluticasone propionate 50 mcg/actuation spray,suspension 2 spray intranasal DAILY Qty: 15.8 RF: 2 cholecalciferol (vitamin D3) 1,000 unit capsule 1,000 units PO DAILY RF: 0 calcium citrate-vitamin D3 315 mg- 250 unit tablet 1 tab PO BID RF: 0 glucosamine sulfate 500 mg capsule 500 mg PO DAILY RF: 0 multivitamin Tablet 1 tab PO DAILY RF: 0
[2021-04-25] MEDS ORDERED: ONDANSETRON INJ 2 MG/ML 2 ML VIAL IV STA (14:12)
[2021-04-25] MEDS ORDERED: SODIUM CHLORIDE 0.9% 1000ML 1,000 ML IV SCH (14:15)
[2021-04-25 14:50] LABS: Magnesium 2.5 mg/dl (1.8-2.4); Thyroid Stimulating Hormone 1.82 uIu/ml (0.300-4.500)
[2021-04-25] MEDS ORDERED: SODIUM CHLORIDE 0.9% 1000ML 500 ML IV ONE (15:12)
--- NOTE | 2021-04-25 15:36 | Electrocardiogram Report ---
Test Reason : Blood Pressure : / mmHG Vent. Rate : 051 BPM Atrial Rate : 051 BPM P-R Int : 176 ms QRS Dur : 094 ms QT Int : 454 ms P-R-T Axes : 067 061 049 degrees QTc Int : 418 ms Sinus bradycardia Otherwise normal ECG When compared with ECG of 21-NOV-2011 06:30, No significant change was found Confirmed by Chacorta Yuen ([id number]) on 04/25/2021 3:36:20 PM Referred By: Confirmed By:Chacorta Yuen
[2021-04-25 15:44] LABS: Appearance Urine Cloudy (Clear); Bacteria Urine Automated Negative (Negative); Bilirubin Urine Negative (Negative); Blood Urine Negative (Negative); Color Urine Yellow; Glucose Urine UA Negative (Negative); Ketones Urine Trace (Negative); Leukocyte Esterase Urine Negative (Negative); Nitrite Urine Negative (Negative); Protein Urine Negative (Negative); RBC Urine Automated 0-4 /hpf (0-4); Urobilinogen Urine Negative (Negative)
--- NOTE | 2021-04-25 16:21 | History & Physical Report ---
Date of Service April 25, 2021 Assessment & Plan (1) Vasovagal syncope: Symptoms consistent with straining on commode, no vertiginousness symptoms reported, short lived ~3-5 seconds - Multiple causes to include dietary intake of CHO3 and mild ketosis, hypovolemia, pain - Monitor on telemetry overnight - Hold antihypertensives until tomorrow evaluation - HX of sinus bradycardia, no ectopy or pauses- not on any rate controlling agents (2) Abdominal pain: Generalized non-specific, patient has history of appendectomy - KUB x1 - No muprhy's sign present- normal biliary labs - tympanic on percussion- likely associated with gas - MOM scheduled- evaluate - consider simethicone if needed (3) Fatigue: Multifactorial - TSH 1.8 - Check Po4 level - Random cortisol - Am cortisol - Not anemic with normal MCV - normal wbc (4) Diabetes mellitus: Carb consistent diet - may need some further diet education - sliding scale aspart- CF 30 carb coverage: 0 (5) GERD without esophagitis: Continue famotidine (6) Hyperlipidemia: Continue simvastatin (7) Hypertension: Controlled - hold as above until euvolemia ensured (8) Osteopenia: No acute needs History of Present Illness Primary Care Provider: Simba Ray MD 75 YOF with past medical history GERD, Hiatal hernia, HLD, HTN, osteopenia, thyroid nodule, syncope. Comes to the emergency room this morning following 2 episodes of syncope while on the commode this morning. The patient reports that she was awoken with sharp abdominal pain noted to her lower abdomen, so she went to the bathroom, her then reports that she was still having the pain and also straining and she passed out, she awoken shortly and passed out again. The patient abdominal pain is lower abdomen bilaterally that is sharp and comes and goes. also endorses that he had some stomach upset last night as well after dinner. They had a mushroom salad. She had no nausea but felt nauseated and had a soft BM this morning. The patient is noted to be bradycardic, but this is baseline for her on her ECG back to 2011. Of note the patient has been trying a new diet to reduce her carbohydrate intake and has been avoiding carbohydrates for the past 10-14 days. Patient feels fatigued and tired. Patient will be admitted and monitored on telemetry, follow hemodynamics, laboratory assessment and evaluation of her abdominal discomfort. Allergies Allergy/AdvReac Type Severity Reaction Status Date / Time lidocaine Allergy Unknown FAINT Verified 04/25/21 16:04 procaine [From Novocain] Allergy Unknown Unknown Verified 04/25/21 16:04 Home Medications Medication Instructions Recorded Confirmed Type cholecalciferol (vitamin D3) 25 1,000 units PO DAILY 05/18/19 04/25/21 History mcg (1,000 unit) capsule calcium citrate 315 mg 1 tab PO BID tab 09/13/19 04/25/21 History calcium-vitamin D3 6.25 mcg (250 unit) tablet glucosamine sulfate 500 mg capsule 500 mg PO DAILY cap 09/13/19 04/25/21 History simvastatin 20 mg tablet 20 mg PO DAILY #90 tab 08/06/20 04/25/21 Rx telmisartan 40 mg tablet 40 mg PO DAILY #90 tab 10/24/20 04/25/21 Rx famotidine 20 mg tablet 20 mg PO DAILY 42 Days #42 tab 01/30/21 04/25/21 Rx fluticasone propionate 50 2 spray INTRANASAL DAILY #15.8 g 01/30/21 04/25/21 Rx mcg/actuation nasal spray,suspension amlodipine 5 mg tablet 5 mg PO DAILY #90 tab 04/15/21 04/25/21 Rx blood sugar diagnostic #100 ea 04/16/21 Rx blood-glucose meter #1 ea 04/16/21 Rx lancets #100 ea 04/17/21 Rx multivitamin 1 tab PO DAILY 04/25/21 04/25/21 History Past Med/Surg History Medical History (Updated 04/25/21 @ 16:51 by SANTANA Maza) Abnormal Pap smear of cervix Chronic headaches Diabetes mellitus Erosive osteoarthritis of hands, bilateral GERD without esophagitis Headache Hiatal hernia Hyperlipidemia Hyperplastic colon polyp Hypertension Laryngopharyngeal reflux Muscle spasm Neck pain No known health problems Non-smoker Osteopenia Pain in joint of left shoulder Postmenopausal atrophic vaginitis Right knee pain Solitary thyroid nodule Vasovagal syncope Vitamin D deficiency Voice hoarseness Surgical History H/O colonoscopy 08/01, neg, due in 10 years H/O dilation and curettage H/O oral surgery History of appendectomy History of cryosurgery cervix Hx of tonsillectomy S/P arthroscopy of knee Family History Mother Thyroid disorder Malignant melanoma Alzheimer disease Father Pancreatic neoplasm Cancer Denies family history of Ovarian cancer Breast cancer Bleeding disorder Colorectal cancer Social History Smoking Status: Never smoker Second Hand Exposure: No; Hx Alcohol Use: No Hx Substance Use: No Preferred Language: Gambian Communication Ability: Effective Visual Impairment: No Limitations Hearing Ability: Normal Mortgage Loan Processor Required: No Beliefs That Will Affect Care: None marital status: Current Living Situation: Spouse current occupational status: retired Feels Safe at Home: Yes Safety Concerns: Feels Safe At This Time Childhood Exposure to Second-Hand Smoke: No Dental Care, Regularly: Yes Physical Activity Frequency: Daily Seatbelt Use: always Sunscreen Use: Yes Assistive Devices: Glasses Review of Systems Review of Systems: REVIEW OF SYSTEMS: Constitutional: (+) generalized fatigue No fever, sweats or chills Eyes: No diplopia, no worsening or blurred vision ENT: normal hearing, no trouble swallowing Respiratory: No cough, sputum, dyspnea at rest or on exertion Cardiovascular: No chest pain, tightness or palpitations Abdomen: (+) pain, nausea, (-) vomiting, diarrhea or constipation Musculoskeletal: No joint pain, calf pain, swelling Neurologic: No weakness, numbness/tingling, or balance problems Psychiatric: No anxiety or depression Skin: No rash or itch Physical Exam Physical Exam: PHYSICAL EXAM: General: awake, alert, fatigued looking, no apparent distress Head/neck: Normocephalic, atraumatic, thyroid soft ENT: PERRL, EOMI, no pharyngeal exudate, mucous membranes moist Neuro: AAO x 3, speech clear and appropriate, strength intact bilaterally 5/5, sensation intact and equal all extremities and dermatomes, no pronator drift Chest: equal rise and fall of the chest, no accessory muscle use, no heaves or thrills, Clear to auscultation, on room air, Cardiac: Regular rate and rhythm, telemetry reviewed- sinus raul-NSR, skin warm dry, cap refill <3 seconds, peripheral pulses +2 no JVD, no murmur, no edema GI: NABS x 4 quadrants, softly distended, tympanic on percussion, nontender to palpation, no rebound, guarding or tenderness : Spontaneously voiding, no pain, no CVA tenderness, Extremities: Normal inspection, no peripheral edema or erythema, calfs nontender to palpation Psych: Normal mood and affect Skin: no rash or erythema Results & Data Results & Data ([facility]) Vital Signs (Past 12 Hours) Vital Signs Temp Pulse Resp BP Pulse Ox 04/25/21 15:41 61 22 127/60 04/25/21 15:39 59 L 10 L 137/57 L 96 04/25/21 15:38 62 19 136/58 L 95 04/25/21 15:30 57 L 13 116/71 96 04/25/21 15:00 56 L 12 139/57 L 97 04/25/21 14:03 50 L 12 116/45 L 96 04/25/21 12:31 36.4 C L 50 L 15 145/56 H 98 04/25/21 12:30 47 L 3 L 145/56 H 98 Laboratory Results Abnormal lab results 04/25/21 04/25/21 04/25/21 Range/Units 12:35 12:35 15:00 BUN/Creatinine Ratio 29.1 H (10-20) Glucose 149 H (70-99) mg/dl Magnesium 2.5 H (1.8-2.4) mg/dl Urine Appearance Cloudy A (Clear) Urine pH 8.0 H (4.5-7.5) Urine Ketones Trace H (Negative) U Epithel Cells (Auto) 5-10 H (0-5) /lpf Diagnostic Findings Chest X-Ray 04/25/21 12:45 XR chest 1V portable HISTORY: weakness COMPARISON: None. FINDINGS: The lungs are clear. Cardiac silhouette is normal in size. No pleural effusions. No pneumothorax. IMPRESSION: No acute process. Electronically signed by: Juan Martinez M.D. 04/25/2021 1:01 PM KUB PENDING Medications Administered Discontinued Medications Sodium Chloride (Nss 1000ml) 1,000 mls @ 999 mls/hr IV .Q1H1M GALILEO Stop: 04/25/21 15:15 Last Infusion: 04/25/21 15:36 Dose: 0 mls/hr Documented by: [id number] Admin: 04/25/21 14:18 Dose: 999 mls/hr Documented by: [id number] Sodium Chloride (Nss 1000ml) 500 mls @ 999 mls/hr IV .Q31M ONE Stop: 04/25/21 15:42 Last Infusion: 04/25/21 15:59 Dose: 0 mls/hr Documented by: [id number] Admin: 04/25/21 15:20 Dose: 999 mls/hr Documented by: [id number] Ondansetron HCl (Ondansetron Inj 2 Mg/Ml 2 Ml Vial) 4 mg IV NOW STA Stop: 04/25/21 14:13 Last Admin: 04/25/21 14:18 Dose: 4 mg Documented by: [id number] ECG Additional Comments: Sinus bradycardia Otherwise normal ECG When compared with ECG of 21-NOV-2011 06:30, No significant change was found Code Status & VTE Plan Code Status CODE: FULL VTE: SCD's, Lovenox 40 sq daily VTE Prophylaxis Plan VTE Prophylaxis will be ordered: Yes Supervising Physician Co-Signing Physician Notes FOSTER WINDER Supervision note: I have personally seen and examined the patient and discussed and verified the cota points of the history and physical along with the plan with SANTANA Llanos with the following exceptions and/or additions: This patient is a 75-year-old female with a history of HTN, osteopenia, GERD, diet-controlled DM2, and solitary thyroid nodule who presents to the ER after having 2 episodes of syncope after straining to have a painful bowel movement on the toilet this morning. She reports her diet has recently changed in the last 1 to 2 weeks in an effort to reduce her blood sugar after being newly diagnosed with diabetes. She reports lower abdominal pain that was sharp and cramping in nature and strain of the bowel movement and then after she had a bowel movement passed out. Her found her and she was probably passed out for about 20 to 30 seconds. She denies feeling any chest pain or heart palpitations prior to passing out, and does have a history of syncope once previously while holding her daughter's leg during her vaginal delivery. She reports she has been well- hydrated lately. In the ER, she was found to be bradycardic in the 40s and 50s. She reports that typically her heart rate is around 70-80. Otherwise, her laboratory work-up was normal, EKG was sinus bradycardia but no heart block. History and ROS reviewed as above Vitals reviewed Gen: AAOx3, NAD HEENT: Anicteric sclerae, EOMI CV: RRR no mgr nl S1S2 Pulm: CTAB no wcr Abd: +BS soft NT ND no masses or hernias Ext: No edema, 2+ DP pulses Skin: No rashes, warm/dry Neuro: Full strength throughout Laboratory values reviewed Imaging reviewed ECG reviewed 75-year-old female with history noted as above, here with syncope, most likely related to vasovagal syncope from pain and defecation. No murmur on examination, but was somewhat bradycardic more than usual upon arr ival. -Monitor on telemetry for arrhythmia -Check echocardiogram for structural heart disease -Bowel regimen to ensure no straining or abdominal pain -Change in bowel habits likely secondary to recent change in diet PG Care Time/CCT Total # of Minutes Spent Total Time Spent with Patient: Total time spent is greater than 50% in coordination of care (as documented) at patient's floor/unit and/or counseling patient: Coding Level of Care Code 60866 OBS Care - Level 3 Diagnoses Vasovagal syncope R55 Abdominal pain R10.84 Abdominal location: generalized Fatigue R53.83 Fatigue type: unspecified Diabetes mellitus E11.9 Diabetes mellitus complication status: without complication Diabetes mellitus fpc insulin use: without airplane pilot crop dusting use Diabetes mellitus type: type 2 GERD without esophagitis K21.9 Hyperlipidemia E78.5 Hyperlipidemia type: unspecified Hypertension I10 Hypertension type: unspecified Osteopenia M85.80 Osteopenia location: unspecified (1) Fatigue Fatigue type: unspecified Qualified Code(s): R53.83 - Other fatigue (2) Diabetes mellitus Diabetes mellitus complication status: without complication Diabetes mellitus airplane pilot crop dusting insulin use: without airplane pilot crop dusting use Diabetes mellitus type: type 2 Qualified Code(s): E11.9 - Type 2 diabetes mellitus without complications (3) Hyperlipidemia Hyperlipidemia type: unspecified Qualified Code(s): E78.5 - Hyperlipidemia, unspecified (4) Osteopenia Osteopenia location: unspecified Qualified Code(s): M85.80 - Other specified disorders of bone density and structure, unspecified site (5) Abdominal pain Abdominal location: generalized Qualified Code(s): R10.84 - Generalized abdominal pain (6) Hypertension Hypertension type: unspecified Qualified Code(s): I10 - Essential (primary) hypertension
--- NOTE | 2021-04-25 17:11 | XRay Report ---
KUB CLINICAL HISTORY: abdominal pain and distention COMPARISON STUDY: CT of the abdomen and pelvis October 21, 2011. FINDINGS: The bowel gas pattern is normal. No urinary calculi are identified. The amount of stool is within normal limits. The bladder may be distended. IMPRESSION: 1. No evidence for a bowel obstruction. 2. Possible bladder distention. ACT 112: Negative or not required by law. Electronically signed by: Haseeb Jason M.D. 04/25/2021 5:10 PM
[2021-04-25] MEDS ORDERED: GLUCOSE 40% GEL 15 GM TUBE PO PRN (18:44)
[2021-04-25] MEDS ORDERED: CARBOHYDRATES FOR HYPOGLYCEMIA PO PRN (18:44)
[2021-04-25] MEDS ORDERED: GLUCOSE 10 TABS/TUBE PO PRN (18:44)
[2021-04-25] MEDS ORDERED: ACETAMINOPHEN 325 MG TAB PO PRN (18:44)
[2021-04-25] MEDS ORDERED: GLUCAGON FOR INJ 1 MG VIAL SQ PRN (18:44)
[2021-04-25] MEDS ORDERED: DEXTROSE 50% 50 ML SYRINGE IV PRN (18:44)
[2021-04-25] MEDS ORDERED: ONDANSETRON INJ 2 MG/ML 2 ML VIAL IV PRN (18:44)
[2021-04-25] MEDS: MAGNESIUM HYDROXIDE SUSP 30 ML UDC PO SCH (20:43)
[2021-04-25] MEDS ORDERED: ENOXAPARIN INJ 40 MG/0.4 ML SYR SQ SCH (21:00)
[2021-04-25] MEDS ORDERED: SIMVASTATIN 20 MG TAB PO SCH (21:00)
[2021-04-25] MEDS: INSULIN ASPART 100 UNITS/ML 3 ML PEN SC SCH (22:50)
[2021-04-26] MEDS: MAGNESIUM HYDROXIDE SUSP 30 ML UDC PO SCH (06:17)
[2021-04-26 07:44] LABS: Basophils # (auto) 0.01 K/uL (0-0.2); Basophils % (auto) 0.1 %; Eosinophils # (auto) 0.11 K/uL (0-0.5); Eosinophils % (auto) 1.3 %; Hemoglobin 12.2 g/dL (12.0-16.0); Lymphocytes % (auto) 23.8 %; Mean Corpuscular Hemoglobin 28.8 pg (25-34); Mean Corpuscular Volume 87.5 fL (80-100); Mean Platelet Volume 9.7 fL (7.4-10.4); Monocytes # (auto) 0.72 K/uL (0.11-0.59); Monocytes % (auto) 8.6 %; Neutrophils # (auto) 5.58 K/uL (1.4-6.5); Neutrophils % (auto) 66.2 %; Platelet Count 247 K/uL (130-400); RDW Coefficient of Variation 13.5 % (11.5-14.5); RDW Standard Deviation 43.2 fL (36.4-46.3); Red Blood Count 4.23 M/uL (4.2-5.4); White Blood Count 8.42 K/uL (4.8-10.8)
[2021-04-26] MEDS: INSULIN ASPART 100 UNITS/ML 3 ML PEN SC SCH ×2 (08:00→12:08)
[2021-04-26 08:10] LABS: BUN Creatinine Ratio 20.1 (10-20); Calcium 8.6 mg/dl (8.5-10.1); Creatinine Clr Calc Pharmacy 65.6 ml/min; Est GFR (African American) 101.4 ml/min; Est GFR (Non-African American) 87.5 ml/min; Magnesium 2.4 mg/dl (1.8-2.4); Potassium 3.4 mmol/L (3.5-5.1)
[2021-04-26] MEDS ORDERED: GLUCOSAMINE SULFATE 500 MG CAP PO SCH (09:00)
[2021-04-26] MEDS ORDERED: FLUTICASONE PROPIONATE NA SPR 16 GM BTL NAE SCH (09:00)
[2021-04-26] MEDS ORDERED: FAMOTIDINE 20 MG TAB PO SCH (09:00)
--- NOTE | 2021-04-26 14:56 | XCELERA ---
[id number]
[2021-04-26 15:45] VITALS: BP 146/61; TEMP 97.9; O2SAT 97
[2021-04-26 15:55] VITALS: PULSE 61
--- NOTE | 2021-04-28 19:10 | Discharge Summary ---
Date of Service April 26, 2021 Admission HPI Per Admitting Provider 75 YOF with past medical history GERD, Hiatal hernia, HLD, HTN, osteopenia, thyroid nodule, syncope. Comes to the emergency room this morning following 2 episodes of syncope while on the commode this morning. The patient reports that she was awoken with sharp abdominal pain noted to her lower abdomen, so she went to the bathroom, her then reports that she was still having the pain and also straining and she passed out, she awoken shortly and passed out again. The patient abdominal pain is lower abdomen bilaterally that is sharp and comes and goes. also endorses that he had some stomach upset last night as well after dinner. They had a mushroom salad. She had no nausea but felt nauseated and had a soft BM this morning. The patient is noted to be bradycardic, but this is baseline for her on her ECG back to 2011. Of note the patient has been trying a new diet to reduce her carbohydrate intake and has been avoiding carbohydrates for the past 10-14 days. Patient feels fatigued and tired. Patient will be admitted and monitored on telemetry, follow hemodynamics, laboratory assessment and evaluation of her abdominal discomfort. Principal Diagnosis vasovagal syndrome Discharge Exam General: awake, alert, fatigued looking, no apparent distress Head/neck: Normocephalic, atraumatic, thyroid soft ENT: PERRL, EOMI, no pharyngeal exudate, mucous membranes moist Neuro: AAO x 3, speech clear and appropriate, strength intact bilaterally 5/5, sensation intact and equal all extremities and dermatomes, no pronator drift Chest: equal rise and fall of the chest, no accessory muscle use, no heaves or thrills, Clear to auscultation, on room air, Cardiac: Regular rate and rhythm, telemetry reviewed- sinus raul-NSR, skin warm dry, cap refill <3 seconds, peripheral pulses +2 no JVD, no murmur, no edema GI: NABS x 4 quadrants, softly distended, tympanic on percussion, nontender to palpation, no rebound, guarding or tenderness : Spontaneously voiding, no pain, no CVA tenderness, Extremities: Normal inspection, no peripheral edema or erythema, calfs nontender to palpation Psych: Normal mood and affect Skin: no rash or erythema Discharge Data Allergies Allergy/AdvReac Type Severity Reaction Status Date / Time lidocaine Allergy Unknown FAINT Verified 04/25/21 16:04 procaine [From Novocain] Allergy Unknown Unknown Verified 04/25/21 16:04 Consultations 04/25/21 15:54 ED Decision to Admit Stat Hospital Course (1) Vasovagal syncope: Symptoms consistent with straining on commode, no vertiginousness symptoms reported, short lived ~3-5 seconds - Multiple causes to include dietary intake of CHO3 and mild ketosis, hypovolemia, pain - Monitor on telemetry overnight - Hold antihypertensives until tomorrow evaluation - HX of sinus bradycardia, no ectopy or pauses- not on any rate controlling agents -At discharge, recommended to resume blood pressure meds but will hold amlodipine as blood pressure was not elevated. (2) Abdominal pain: Generalized non-specific, patient has history of appendectomy - KUB x1 - No muprhy's sign present- normal biliary labs - tympanic on percussion- likely associated with gas - MOM scheduled- evaluate - consider simethicone if needed (3) Fatigue: Multifactorial - TSH 1.8 -resolved (4) Diabetes mellitus: Carb consistent diet - may need some further diet education - sliding scale aspart- CF 30 carb coverage: 0 (5) GERD without esophagitis: Continue famotidine (6) Hyperlipidemia: Continue simvastatin (7) Hypertension: Controlled - hold as above until euvolemia ensured (8) Osteopenia: No acute needs Total Time Total Time Spent Total Time Spent (In Minutes): 32 Total Time Includes: Examination of the Patient, Discharge Planning and Medication Reconciliation Discharge Plan Discharge Items Patient Disposition: Home - Self-Care Reason For Visit: SYNCOPE, FALL Discharge Diagnosis: Syncope, Fall Activity: Resume your previous activity Non-emergency contact: Primary Care Provider Call non-emergency contact if: you have any medication questions Follow-up/Referrals: Simba Ray MD [Primary Care Provider] - 05/07/21 10:15 am Diet: Regular Addtl Attending Provider Instructions: Will recommend to cut back on your blood pressure medications. Given that your blood pressure has been at goal below 140/90. Will recommend close followup with your primary care doctor in about 1 week. We also had you on a despatching and receiving clerk and your heart rate did not show any funny rhythm. Pending Studies at Discharge: No Stand-Alone Forms: [facility], Smoking Cessation Medications and DC Order Prescriptions: Continued simvastatin 20 mg tablet 20 mg PO DAILY Qty: 90 RF: 3 telmisartan [Micardis] 40 mg tablet 40 mg PO DAILY Qty: 90 RF: 3 (DME) blood-glucose meter [OneTouch Verio Flex Start] Kit See Rx Instructions .ROUTE .MEDSUPPLY Qty: 1 RF: 0 (DME) OneTouch Verio test strips Strip See Rx Instructions .ROUTE .MEDSUPPLY Qty: 100 RF: 0 (DME) lancets [OneTouch UltraSoft Lancets] Misc See Rx Instructions .ROUTE .MEDSUPPLY Qty: 100 RF: 3 famotidine [Acid Hat Forming Machine Operator (famotidine)] 20 mg tablet 20 mg PO DAILY 42 Days Qty: 42 RF: 6 fluticasone propionate 50 mcg/actuation spray,suspension 2 spray intranasal DAILY Qty: 15.8 RF: 2 cholecalciferol (vitamin D3) 1,000 unit capsule 1,000 units PO DAILY RF: 0 calcium citrate-vitamin D3 315 mg- 250 unit tablet 1 tab PO BID RF: 0 glucosamine sulfate 500 mg capsule 500 mg PO DAILY RF: 0 multivitamin Tablet 1 tab PO DAILY RF: 0 Discontinued amlodipine 5 mg tablet 5 mg PO DAILY Qty: 90 RF: 3 Discharge Orders: Discharge Order (Routine); Ordered 04/26/21 Ordered By: Dwight Rivers Admission Data Admit Date/Time: 04/25/21 16:50 Attending Provider: Dwight Rivers Admit Provider: Aileen Mendenhall Primary Care Provider: Simba Ray Other Providers: Aileen Mendenhall Other Interventions: Discharge Summary Assessment (RN) Last Done: 04/26/21 15:53 Coding Level of Care Code 50178 OBS Care - Discharge Diagnoses Vasovagal syncope R55 Abdominal pain R10.84 Abdominal location: generalized Fatigue R53.83 Fatigue type: unspecified Diabetes mellitus E11.9 Diabetes mellitus complication status: without complication Diabetes mellitus penitentiary insulin use: without penitentiary use Diabetes mellitus type: type 2 GERD without esophagitis K21.9 Hyperlipidemia E78.5 Hyperlipidemia type: unspecified Hypertension I10 Hypertension type: unspecified Osteopenia M85.80 Osteopenia location: unspecified
== END 2021-04-26 17:06 | disposition home or self-care (01) ==
LOC: ED 12:26 → 2N 12:26 → SUATTDRO 16:50 → 2N 17:57

== ENCOUNTER 2023-01-12 12:20 | Observation (INO) ==
[2023-01-12] MEDS ORDERED: ONDANSETRON INJ 2 MG/ML 2 ML VIAL IV STA (12:43)
[2023-01-12] MEDS ORDERED: SODIUM CHLORIDE 0.9% 1000ML 1,000 ML IV ONE (12:43)
--- NOTE | 2023-01-12 13:12 | Emergency Department Note ---
Impression & Plan COVID-19, Syncope and collapse, Abdominal pain, lower ED Provider Note INFORMANT: Patient and ED PROVIDER(S): Tomás Moore MD CHIEF COMPLAINT: Syncope PLAN: Disposition: Admitted Condition: Good Outpatient prescription management: none Referral: None MEDICAL DECISION MAKING: Patient presented to the emergency department after syncopal episode. She had a home COVID test that was positive. She was feeling weak, lightheaded and had intense abdominal discomfort prior to the episode. By history seem consistent with a vagal like event. She underwent a work-up in light of the illness and event. She had an unremarkable CBC and chemistry panel. Patient was hydrated and did receive IV Zofran. Chest x-ray was unremarkable. ECG and cardiac monitoring did not reveal any significant evidence of dysrhythmia or gross abnormality. Patient's COVID test was confirmed positive. She was given oral fluids and tolerated those. CT imaging did not reveal any evidence of obstruction or acute intra-abdominal process. The patient had an ambulatory trial attempted by nursing and this was unsuccessful. She was still profoundly weak and unsteady. I suspect the COVID illness is the root cause. Given her inability to safely ambulate I discussed further management in the hospital with her and her . They were in agreement. Consultation was made with the [facility]ist service. Patient was evaluated in the ER and admitted for further management. Discussed with grounds manager. After review of the information above and other included data, I feel the patient requires admission. Triage Nursing notes reviewed and agree them. Vital Signs: reviewed and remarkable for borderline bradycardia Prior /Outside records reviewed: Reviewed PCP note for Paxlovid prescription and medication management. Differential diagnosis: Vasovagal event, dehydration, infection, hypoglycemia, electrolyte abnormalities, dysrhythmia, ACS, intracerebral event, pulmonary embolism, seizure, toxicologic, neurologic, as well as other pathologies. Diagnostics, as interpreted by me: ECG: Twelve-lead ECG reveals sinus bradycardia [address] elevation or depression. No PACs or PVCs. Cardiac Monitoring: Cardiac monitoring ordered by me: The patient was placed on continuous cardiac monitoring and observed. It revealed a normal sinus rhythm at 60 beats per minute without ectopy or evidence of dysrhythmia. Medical decision rules: none Imaging studies: Chest x-ray. Findings: A chest x-ray was performed and revealed no pneumothorax, effusion, infiltrate, pulmonary edema, free air under the diaph ragm, or wide mediastinum. Impression: No acute disease. CT scan of the abdomen pelvis is negative for acute intra-abdominal pathology. No obstruction, stone, or other pathology noted. HPI: The patient is a 77year old female who presents to the Emergency Room with complaints of syncope. This started this morning and witnessed by her . Patient states she was not feeling well over the weekend and had GI upset. She took a COVID test at home and it was positive. Her was positive. 6 days ago. The patient also notes the following associated symptoms, intense lower abdominal pain that was rated as an 8, diarrhea. The patient has been started on Paxlovid for relieving factors. Pt denies headache, fevers, chills, diaphoresis, visual changes, neck pain, chest pain, breathing difficulties, nausea, vomiting,back pain, melena, hematochezia, urinary symptoms, numbness, weakness, lymphadenopathy, rash, or other complaints. PAST MEDICAL HISTORY: See Below, dehydration, hypertension PAST SURGICAL HISTORY: See Below, appendectomy SOCIAL HISTORY: See Below, HOME MEDICATIONS: See Below ALLERGIES: See Below VITALS: See Below PHYSICAL EXAMINATION: GENERAL: Awake, very tired and mildly ill appearing, in no distress HENT: Normocephalic, atraumatic. Oropharynx unremarkable. EYES: Normal conjunctiva. Sclera non-icteric. PERRLA. EOMI. NECK: Inspection normal. Non-tender. Supple. No nuchal rigidity. FROM. No masses. RESPIRATORY: Clear to auscultation. No wheezes. No rales. Normal respiratory effort. CARDIAC: Normal rate. Normal rhythm. No murmurs. No rubs. Extremities warm and well perfused. Pulses equal. No JVD. GI: Soft, non-distended. Bilateral lower quadrant tenderness to palpation. No rebound or guarding. No masses. RECTAL: Deferred. MUSCULOSKELETAL: Atraumatic. Chest examination reveals no tenderness. The back is symmetrical on inspection without obvious abnormality. There is no CVA tenderness to palpation. No joint edema. LOWER EXTREMITIES: Calves are equal size bilaterally and non-tender. No edema. No discoloration. NEURO: Normal sensorium. No sensory or motor deficits noted. SKIN: No rash or jaundice noted. Very tired and mildly ill Past Med/Surg History Medical History (Updated 01/12/23 @ 18:36 by Josiah Dowell PA-C) Abnormal Pap smear of cervix Chronic headaches Diabetes mellitus Erosive osteoarthritis of hands, bilateral GERD without esophagitis Headache Hiatal hernia Hyperlipidemia Hyperplastic colon polyp Hypertension Laryngopharyngeal reflux Muscle spasm Neck pain No known health problems Non-smoker Osteopenia Pain in joint of left shoulder Postmenopausal atrophic vaginitis Right knee pain Solitary thyroid nodule Vasovagal syncope Vitamin D deficiency Voice hoarseness Surgical History H/O colonoscopy 08/01, neg, due in 10 years H/O dilation and curettage H/O oral surgery History of appendectomy History of cryosurgery cervix Hx of tonsillectomy S/P arthroscopy of knee Family History Mother Thyroid disorder Malignant melanoma Alzheimer disease Father Pancreatic neoplasm Cancer Denies family history of Ovarian cancer Breast cancer Bleeding disorder Colorectal cancer Social History Smoking Status: Never smoker Second Hand Exposure: No; Hx Alcohol Use: Yes Alcohol Intake Frequency: Monthly or Less Hx Substance Use: No Preferred Language: German Communication Ability: Effective Communication Ability Comment: [facility] Visual Impairment: No Limitations Hearing Ability: Normal 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 Beliefs That Will Affect Care: None marital status: Current Living Situation: Spouse current occupational status: retired Other Information That Helps Us Care for You: No Feels Safe at Home: Yes Safety Concerns: Feels Safe At This Time Childhood Exposure to Second-Hand Smoke: No Dental Care, Regularly: Yes Physical Activity Frequency: Daily Seatbelt Use: always Sunscreen Use: Yes Assistive Devices: Glasses Allergies Allergies Allergy/AdvReac Type Severity Reaction Status Date / Time lidocaine Allergy Unknown FAINT Verified 01/12/23 17:58 procaine [From Novocain] Allergy Unknown Unknown Verified 01/12/23 17:58 Home Meds Home Medications Medication Instructions Recorded Confirmed calcium citrate 315 mg 1 tab PO BID 09/13/19 01/12/23 calcium-vitamin D3 6.25 mcg (250 unit) tablet glucosamine sulfate 500 mg capsule 500 mg PO DAILY 09/13/19 01/12/23 cholecalciferol (vitamin D3) 25 2,000 unit PO DAILY 07/16/21 01/12/23 mcg (1,000 unit) capsule multivitamin 1 tab PO Q2D 10/30/22 01/12/23 alendronate 70 mg tablet (Fosamax) 70 mg PO WK 01/12/23 01/12/23 simvastatin 20 mg tablet 20 mg PO . ON HOLD 01/12/23 01/12/23 Previous Rx's Medication Instructions Recorded blood-glucose meter (OneTouch #1 ea 04/16/21 Verio Flex Start kit) famotidine 20 mg tablet (Acid 20 mg PO DAILY #90 tabs 02/14/22 [employer] (famotidine)) blood sugar diagnostic (OneTouch #200 ea 08/19/22 Verio test strips) telmisartan 80 mg tablet 80 mg PO DAILY #90 tabs 08/19/22 lancets 33 gauge (OneTouch Delica #200 ea 08/20/22 Lancets) amlodipine 2.5 mg tablet 2.5 mg PO DAILY 5 days #5 tabs 01/10/23 nirmatrelvir 300 mg (150 mg See Rx Instructions PO .COMPLEX 01/10/23 x2)-ritonavir 100 mg tablet,dose #30 tabs pack(EUA) (Paxlovid) Results & Data (ED) Vital Signs Vital Signs - 24 hr 01/12/23 12:44 01/12/23 12:08 01/12/23 12:25 Temperature 36.5 C Temperature Source Oral Pulse Rate 61 65 Pulse Rate [Apical] Pulse Rate from SpO2 Sensor Pulse Rhythm Regular Pulse Rhythm [Apical] Pulse Strength Normal Respiratory Rate 12 Respiratory Effort / Characteristics Non-Labored Respiratory Depth Normal Respiratory Pattern Regular Blood Pressure 142/59 H Blood Pressure [Left Arm] Blood Pressure Mean 86 Blood Pressure Mean [Left Arm] Pulse Oximetry 100 Oxygen Delivery Method Room Air Room Air Sepsis Recent Fever Within 48 Hours No Sepsis New/Unexplained Change in Mental Status No Sepsis Action Taken by Nursing No Action Required 01/12/23 14:41 01/12/23 12:43 01/12/23 12:50 Temperature Temperature Source Pulse Rate 60 60 Pulse Rate [Apical] 63 Pulse Rate from SpO2 Sensor 61 60 Pulse Rhythm Pulse Rhythm [Apical] Regular Pulse Strength Respiratory Rate 14 17 17 Respiratory Effort / Characteristics Respiratory Depth Respiratory Pattern Blood Pressure Blood Pressure [Left Arm] 120/52 L Blood Pressure Mean Blood Pressure Mean [Left Arm] 74 Pulse Oximetry 98 99 94 Oxygen Delivery Method Sepsis Recent Fever Within 48 Hours Sepsis New/Unexplained Change in Mental Status Sepsis Action Taken by Nursing 01/12/23 13:00 01/12/23 13:00 01/12/23 13:10 Temperature Temperature Source Pulse Rate 58 L 60 Pulse Rate [Apical] Pulse Rate from SpO2 Sensor 58 L 59 L Pulse Rhythm Pulse Rhythm [Apical] Pulse Strength Respiratory Rate 12 13 Respiratory Effort / Characteristics Respiratory Depth Respiratory Pattern Blood Pressure 144/54 H Blood Pressure [Left Arm] Blood Pressure Mean 84 Blood Pressure Mean [Left Arm] Pulse Oximetry 95 96 Oxygen Delivery Method Room Air Sepsis Recent Fever Within 48 Hours Sepsis New/Unexplained Change in Mental Status Sepsis Action Taken by Nursing 01/12/23 13:30 01/12/23 13:30 01/12/23 13:40 Temperature Temperature Source Pulse Rate 63 59 L Pulse Rate [Apical] Pulse Rate from SpO2 Sensor 62 59 L Pulse Rhythm Pulse Rhythm [Apical] Pulse Strength Respiratory Rate 22 15 Respiratory Effort / Characteristics Respiratory Depth Respiratory Pattern Blood Pressure 147/57 H Blood Pressure [Left Arm] Blood Pressure Mean 87 Blood Pressure Mean [Left Arm] Pulse Oximetry 97 96 Oxygen Delivery Method Sepsis Recent Fever Within 48 Hours Sepsis New/Unexplained Change in Mental Status Sepsis Action Taken by Nursing 01/12/23 13:50 01/12/23 14:00 01/12/23 14:00 Temperature Temperature Source Pulse Rate 59 L 63 Pulse Rate [Apical] Pulse Rate from SpO2 Sensor 60 63 Pulse Rhythm Pulse Rhythm [Apical] Pulse Strength Respiratory Rate 14 16 Respiratory Effort / Characteristics Respiratory Depth Respiratory Pattern Blood Pressure 130/52 L Blood Pressure [Left Arm] Blood Pressure Mean 78 Blood Pressure Mean [Left Arm] Pulse Oximetry 95 96 Oxygen Delivery Method Sepsis Recent Fever Within 48 Hours Sepsis New/Unexplained Change in Mental Status Sepsis Action Taken by Nursing 01/12/23 14:10 01/12/23 14:20 01/12/23 14:30 Temperature Temperature Source Pulse Rate 67 63 Pulse Rate [Apical] Pulse Rate from SpO2 Sensor 67 63 Pulse Rhythm Pulse Rhythm [Apical] Pulse Strength Respiratory Rate 22 19 Respiratory Effort / Characteristics Respiratory Depth Respiratory Pattern Blood Pressure 120/52 L Blood Pressure [Left Arm] Blood Pressure Mean 74 Blood Pressure Mean [Left Arm] Pulse Oximetry 97 96 Oxygen Delivery Method Sepsis Recent Fever Within 48 Hours Sepsis New/Unexplained Change in Mental Status Sepsis Action Taken by Nursing 01/12/23 14:30 01/12/23 14:40 01/12/23 14:50 Temperature Temperature Source Pulse Rate 60 62 63 Pulse Rate [Apical] Pulse Rate from SpO2 Sensor 60 61 62 Pulse Rhythm Pulse Rhythm [Apical] Pulse Strength Respiratory Rate 14 17 16 Respiratory Effort / Characteristics Respiratory Depth Respiratory Pattern Blood Pressure Blood Pressure [Left Arm] Blood Pressure Mean Blood Pressure Mean [Left Arm] Pulse Oximetry 95 95 95 Oxygen Delivery Method Sepsis Recent Fever Within 48 Hours Sepsis New/Unexplained Change in Mental Status Sepsis Action Taken by Nursing 01/12/23 15:00 01/12/23 15:00 01/12/23 15:10 Temperature Temperature Source Pulse Rate 69 66 Pulse Rate [Apical] Pulse Rate from SpO2 Sensor 68 67 Pulse Rhythm Pulse Rhythm [Apical] Pulse Strength Respiratory Rate 18 17 Respiratory Effort / Characteristics Respiratory Depth Respiratory Pattern Blood Pressure 118/56 L Blood Pressure [Left Arm] Blood Pressure Mean 76 Blood Pressure Mean [Left Arm] Pulse Oximetry 95 96 Oxygen Delivery Method Sepsis Recent Fever Within 48 Hours Sepsis New/Unexplained Change in Mental Status Sepsis Action Taken by Nursing 01/12/23 15:20 01/12/23 15:30 01/12/23 15:31 Temperature Temperature Source Pulse Rate 67 71 Pulse Rate [Apical] Pulse Rate from SpO2 Sensor 66 69 Pulse Rhythm Pulse Rhythm [Apical] Pulse Strength Respiratory Rate 20 14 Respiratory Effort / Characteristics Respiratory Depth Respiratory Pattern Blood Pressure 131/50 L Blood Pressure [Left Arm] Blood Pressure Mean 77 Blood Pressure Mean [Left Arm] Pulse Oximetry 97 97 Oxygen Delivery Method Sepsis Recent Fever Within 48 Hours Sepsis New/Unexplained Change in Mental Status Sepsis Action Taken by Nursing 01/12/23 15:31 01/12/23 15:40 01/12/23 15:50 Temperature Temperature Source Pulse Rate 67 73 61 Pulse Rate [Apical] Pulse Rate from SpO2 Sensor 67 60 Pulse Rhythm Pulse Rhythm [Apical] Pulse Strength Respiratory Rate 19 21 14 Respiratory Effort / Characteristics Respiratory Depth Respiratory Pattern Blood Pressure Blood Pressure [Left Arm] Blood Pressure Mean Blood Pressure Mean [Left Arm] Pulse Oximetry 97 97 Oxygen Delivery Method Sepsis Recent Fever Within 48 Hours Sepsis New/Unexplained Change in Mental Status Sepsis Action Taken by Nursing 01/12/23 16:00 01/12/23 16:00 01/12/23 16:10 Temperature Temperature Source Pulse Rate 58 L 60 Pulse Rate [Apical] Pulse Rate from SpO2 Sensor 58 L 61 Pulse Rhythm Pulse Rhythm [Apical] Pulse Strength Respiratory Rate 14 20 Respiratory Effort / Characteristics Respiratory Depth Respiratory Pattern Blood Pressure 121/55 L Blood Pressure [Left Arm] Blood Pressure Mean 77 Blood Pressure Mean [Left Arm] Pulse Oximetry 97 97 Oxygen Delivery Method Sepsis Recent Fever Within 48 Hours Sepsis New/Unexplained Change in Mental Status Sepsis Action Taken by Nursing 01/12/23 16:20 01/12/23 16:30 01/12/23 16:30 Temperature Temperature Source Pulse Rate 61 66 Pulse Rate [Apical] Pulse Rate from SpO2 Sensor 61 66 Pulse Rhythm Pulse Rhythm [Apical] Pulse Strength Respiratory Rate 15 17 Respiratory Effort / Characteristics Respiratory Depth Respiratory Pattern Blood Pressure 134/62 Blood Pressure [Left Arm] Blood Pressure Mean 86 Blood Pressure Mean [Left Arm] Pulse Oximetry 96 97 Oxygen Delivery Method Sepsis Recent Fever Within 48 Hours Sepsis New/Unexplained Change in Mental Status Sepsis Action Taken by Nursing 01/12/23 16:40 01/12/23 16:50 01/12/23 17:00 Temperature Temperature Source Pulse Rate 64 61 Pulse Rate [Apical] Pulse Rate from SpO2 Sensor 64 62 Pulse Rhythm Pulse Rhythm [Apical] Pulse Strength Respiratory Rate 16 17 Respiratory Effort / Characteristics Respiratory Depth Respiratory Pattern Blood Pressure 126/49 L Blood Pressure [Left Arm] Blood Pressure Mean 74 Blood Pressure Mean [Left Arm] Pulse Oximetry 95 96 Oxygen Delivery Method Sepsis Recent Fever Within 48 Hours Sepsis New/Unexplained Change in Mental Status Sepsis Action Taken by Nursing 01/12/23 17:00 01/12/23 17:10 01/12/23 17:20 Temperature Temperature Source Pulse Rate 69 65 67 Pulse Rate [Apical] Pulse Rate from SpO2 Sensor 69 63 67 Pulse Rhythm Pulse Rhythm [Apical] Pulse Strength Respiratory Rate 16 22 17 Respiratory Effort / Characteristics Respiratory Depth Respiratory Pattern Blood Pressure Blood Pressure [Left Arm] Blood Pressure Mean Blood Pressure Mean [Left Arm] Pulse Oximetry 99 98 97 Oxygen Delivery Method Room Air Room Air Sepsis Recent Fever Within 48 Hours Sepsis New/Unexplained Change in Mental Status Sepsis Action Taken by Nursing 01/12/23 17:30 01/12/23 17:30 01/12/23 17:40 Temperature Temperature Source Pulse Rate 64 69 Pulse Rate [Apical] Pulse Rate from SpO2 Sensor 66 70 Pulse Rhythm Pulse Rhythm [Apical] Pulse Strength Respiratory Rate 19 15 Respiratory Effort / Characteristics Respiratory Depth Respiratory Pattern Blood Pressure 132/56 L Blood Pressure [Left Arm] Blood Pressure Mean 81 Blood Pressure Mean [Left Arm] Pulse Oximetry 95 98 Oxygen Delivery Method Sepsis Recent Fever Within 48 Hours Sepsis New/Unexplained Change in Mental Status Sepsis Action Taken by Nursing 01/12/23 17:50 Temperature Temperature Source Pulse Rate 64 Pulse Rate [Apical] Pulse Rate from SpO2 Sensor 64 Pulse Rhythm Pulse Rhythm [Apical] Pulse Strength Respiratory Rate 16 Respiratory Effort / Characteristics Respiratory Depth Respiratory Pattern Blood Pressure Blood Pressure [Left Arm] Blood Pressure Mean Blood Pressure Mean [Left Arm] Pulse Oximetry 98 Oxygen Delivery Method Sepsis Recent Fever Within 48 Hours Sepsis New/Unexplained Change in Mental Status Sepsis Action Taken by Nursing Laboratory Data 01/12/23 12:37 01/12/23 12:37 Lab Results 01/12/23 01/12/23 01/12/23 Range/Units 12:37 12:37 12:37 WBC 4.80 (4.8-10.8) K/ul RBC 4.35 (4.20-5.40) M/uL Hgb 12.7 (12.0-16.0) g/dl Hct 37.5 (37.0-47.0) % MCV 86.2 (80.0-100.0) fL MCH 29.2 (25.0-34.0) pg MCHC 33.9 (32.0-36.0) g/dL RDW Std Deviation 41.0 (36.4-46.3) fL RDW Coeff of Omar 13.0 (11.5-14.5) % Plt Count 205 (130-400) K/uL MPV 10.4 (9.4-12.4) fL Immature Gran % (Auto) 0.2 % Neut % (Auto) 66.1 % Lymph % (Auto) 20.8 % Churchill % (Auto) 11.7 % Eos % (Auto) 0.6 % Baso % (Auto) 0.6 % Neut # (Auto) 3.17 (1.40-6.50) K/uL Lymph # (Auto) 1.00 L (1.2-3.4) K/uL Churchill # (Auto) 0.56 (0.11-0.59) K/uL Eos # (Auto) 0.03 (0-0.50) K/uL Baso # (Auto) 0.03 (0-0.2) K/uL Immature Gran # (Auto) 0.01 (0.01-0.20) K/uL Sodium 140 (136-145) mmol/L Potassium 3.4 L (3.5-5.1) mmol/L Chloride 105 (98-107) mmol/L Carbon Dioxide 26 (21-32) mmol/L Anion Gap 9 (3-11) BUN 14 (6-23) mg/dl Creatinine 0.60 (0.6-1.2) mg/dl Est Cr Clr Drug Dosing 74.7 ml/min Est GFR ( Amer) 102.6 ml/min Est GFR (Non-Af Amer) 88.5 ml/min BUN/Creatinine Ratio 23.3 H (10-20) Glucose 150 H (70-99(Fasting)) mg/dl Calcium 8.4 L (8.5-10.1) mg/dl Magnesium 2.1 (1.7-2.4) mg/dl Total Bilirubin 0.5 (0.2-1.0) mg/dl AST 22 (13-39) U/L ALT 18 (7-52) U/L Alkaline Phosphatase 82 (34-104) U/L Total Protein 6.8 (6.0-8.3) gm/dl Albumin 4.2 (3.4-5.0) gm/dl Globulin 2.6 (2.5-4.0) gm/dl Albumin/Globulin Ratio 1.6 (0.9-2) TSH 2.358 (0.300-4.500) uIu/ml Urine Color Urine Appearance (Clear) Urine pH (4.5-7.5) Ur Specific [place] (1.000-1.030) Urine Protein (Negative) Urine Glucose (UA) (Negative) Urine Ketones (Negative) Urine Blood (Negative) Urine Nitrite (Negative) Urine Bilirubin (Negative) Urine Urobilinogen (Negative) Ur Leukocyte Esterase (Negative) SARS-CoV-2 (PCR) (Negative) Influenza Type A (PCR) (Neg) Influenza Type B (PCR) (Neg) RSV (RT-PCR) (Neg) 01/12/23 01/12/23 Range/Units 15:43 17:13 WBC (4.8-10.8) K/ul RBC (4.20-5.40) M/uL Hgb (12.0-16.0) g/dl Hct (37.0-47.0) % MCV (80.0-100.0) fL MCH (25.0-34.0) pg MCHC (32.0-36.0) g/dL RDW Std Deviation (36.4-46.3) fL RDW Coeff of Omar (11.5-14.5) % Plt Count (130-400) K/uL MPV (9.4-12.4) fL Immature Gran % (Auto) % Neut % (Auto) % Lymph % (Auto) % Churchill % (Auto) % Eos % (Auto) % Baso % (Auto) % Neut # (Auto) (1.40-6.50) K/uL Lymph # (Auto) (1.2-3.4) K/uL Churchill # (Auto) (0.11-0.59) K/uL Eos # (Auto) (0-0.50) K/uL Baso # (Auto) (0-0.2) K/uL Immature Gran # (Auto) (0.01-0.20) K/uL Sodium (136-145) mmol/L Potassium (3.5-5.1) mmol/L Chloride (98-107) mmol/L Carbon Dioxide (21-32) mmol/L Anion Gap (3-11) BUN (6-23) mg/dl Creatinine (0.6-1.2) mg/dl Est Cr Clr Drug Dosing ml/min Est GFR ( Amer) ml/min Est GFR (Non-Af Amer) ml/min BUN/Creatinine Ratio (10-20) Glucose (70-99(Fasting)) mg/dl Calcium (8.5-10.1) mg/dl Magnesium (1.7-2.4) mg/dl Total Bilirubin (0.2-1.0) mg/dl AST (13-39) U/L ALT (7-52) U/L Alkaline Phosphatase (34-104) U/L Total Protein (6.0-8.3) gm/dl Albumin (3.4-5.0) gm/dl Globulin (2.5-4.0) gm/dl Albumin/Globulin Ratio (0.9-2) TSH (0.300-4.500) uIu/ml Urine Color Yellow Urine Appearance Clear (Clear) Urine pH 7.5 (4.5-7.5) Ur Specific [place] 1.011 (1.000-1.030) Urine Protein Negative (Negative) Urine Glucose (UA) Negative (Negative) Urine Ketones 1+ H (Negative) Urine Blood Negative (Negative) Urine Nitrite Negative (Negative) Urine Bilirubin Negative (Negative) Urine Urobilinogen Negative (Negative) Ur Leukocyte Esterase Negative (Negative) SARS-CoV-2 (PCR) POSITIVE A* (Negative) Influenza Type A (PCR) Negative (Neg) Influenza Type B (PCR) Negative (Neg) RSV (RT-PCR) Negative (Neg) Administered Medications Enoxaparin Sodium (Enoxaparin Inj 40 Mg/0.4 Ml Syr) 40 mg SQ Q24H [facility] Stop: 02/11/23 22:59 Last Admin: 01/12/23 23:58 Dose: 40 mg Documented By: ARY Famotidine (Famotidine 20 Mg Tab) 20 mg PO DAILY [facility] Stop: 02/11/23 22:30 Last Admin: 01/13/23 07:59 Dose: 20 mg Documented By: Admin: 01/12/23 23:57 Dose: 20 mg Documented By: ARY Guaifenesin (Guaifenesin Sugar Free 200 Mg/10 Ml Udc) 200 mg PO Q6H [facility] Stop: 02/11/23 18:29 Last Admin: 01/13/23 05:30 Dose: 200 mg Documented By: Admin: 01/13/23 01:47 Dose: 200 mg Documented By: Admin: 01/12/23 19:08 Dose: 200 mg Documented By: CLAUDIO Insulin Aspart (Insulin Aspart Per Unit) 0 units SC ACHS [facility] Stop: 02/11/23 20:59 Last Admin: 01/13/23 07:54 Dose: Not Given Documented By: Admin: 01/12/23 21:52 Dose: Not Given Documented By: CLAUDIO Discontinued Medications Albuterol (Albut/Ipratrop 3mg/0.5mg Neb 3 Ml Vial) 3 ml NEB QIDR [facility]; Protocol Stop: 02/11/23 18:59 Last Admin: 01/13/23 07:37 Dose: 3 ml Documented By: Admin: 01/12/23 19:08 Dose: 3 ml Documented By: CLAUDIO Sodium Chloride (Nss 1000ml) 1,000 mls @ 999 mls/hr IV .Q1H1M ONE Stop: 01/12/23 13:43 Last Infusion: 01/12/23 16:10 Dose: 0 mls/hr Documented By: Admin: 01/12/23 12:53 Dose: 999 mls/hr Documented By: SULEIMAN Sodium Chloride (Nss 1000ml) 1,000 mls @ 125 mls/hr IV .Q8H [facility] Stop: 02/11/23 17:14 Last Infusion: 01/12/23 22:44 Dose: 0 mls/hr Documented By: Infusion: 01/12/23 19:12 Dose: 125 mls/hr Documented By: Admin: 01/12/23 17:11 Dose: 125 mls/hr Documented By: CLAUDIO Lactated Ringer's (Lr) 1,000 mls @ 100 mls/hr IV .Q10H [facility] Stop: 01/13/23 14:29 Last Infusion: 01/13/23 10:49 Dose: 0 mls/hr Documented By: Admin: 01/13/23 04:29 Dose: 100 mls/hr Documented By: Infusion: 01/13/23 04:29 Dose: 100 mls/hr Documented By: Admin: 01/12/23 18:59 Dose: 100 mls/hr Documented By: CLAUDIO Potassium Chloride (K Ryan / Wtr) 10 meq in 100 mls @ 100 mls/hr IV Q1H [facility]; Protocol Stop: 01/12/23 20:29 Last Infusion: 01/12/23 21:40 Dose: 0 mls/hr Documented By: Admin: 01/12/23 20:04 Dose: 100 mls/hr Documented By: Infusion: 01/12/23 20:01 Dose: 100 mls/hr Documented By: Admin: 01/12/23 19:01 Dose: 100 mls/hr Documented By: CLAUDIO Ondansetron HCl (Ondansetron Inj 2 Mg/Ml 2 Ml Vial) 4 mg IV NOW STA Stop: 01/12/23 12:44 Last Admin: 01/12/23 12:53 Dose: 4 mg Documented By: SULEIMAN Potassium Chloride (Potassium Chloride Crtab 20 Meq Tabcr) 40 meq PO Q2H [facility] Stop: 01/12/23 20:01 Last Admin: 01/12/23 19:15 Dose: Not Given Documented By: CLAUDIO Discharge Plan Visit Data Chief Complaint: Syncope ED Provider: Tomás Moore Discharge Problem: COVID-19, Syncope and collapse, Abdominal pain, lower Patient Disposition: Admitted As Inpatient Discharge Instructions Interventions: ED Discharge Assessment Last Done: 01/12/23 21:50
[2023-01-12 13:21] LABS: Basophils # (auto) 0.03 K/uL (0-0.2); Basophils % (auto) 0.6 %; Eosinophils # (auto) 0.03 K/uL (0-0.50); Eosinophils % (auto) 0.6 %; Hematocrit (blood only) 37.5 % (37.0-47.0); Hemoglobin 12.7 g/dl (12.0-16.0); Immature Granulocytes # (auto) 0.01 K/uL (0.01-0.20); Immature Granulocytes % (auto) 0.2 %; Lymphocytes % (auto) 20.8 %; Mean Corpuscular Hemoglobin 29.2 pg (25.0-34.0); Mean Corpuscular Hgb Conc 33.9 g/dL (32.0-36.0); Mean Corpuscular Volume 86.2 fL (80.0-100.0); Mean Platelet Volume 10.4 fL (9.4-12.4); Monocytes # (auto) 0.56 K/uL (0.11-0.59); Monocytes % (auto) 11.7 %; Neutrophils # (auto) 3.17 K/uL (1.40-6.50); Neutrophils % (auto) 66.1 %; Platelet Count 205 K/uL (130-400); Red Blood Count 4.35 M/uL (4.20-5.40)
[2023-01-12 13:26] LABS: Albumin Globulin Ratio 1.6 (0.9-2); Albumin Level 4.2 gm/dl (3.4-5.0); BUN Creatinine Ratio 23.3 (10-20); Bilirubin,Total 0.5 mg/dl (0.2-1.0); Calcium 8.4 mg/dl (8.5-10.1); Creatinine Clr Calc Pharmacy 74.7 ml/min; Est GFR (African American) 102.6 ml/min; Est GFR (Non-African American) 88.5 ml/min; Globulin 2.6 gm/dl (2.5-4.0); Magnesium 2.1 mg/dl (1.7-2.4); Potassium 3.4 mmol/L (3.5-5.1); Total Protein 6.8 gm/dl (6.0-8.3)
--- NOTE | 2023-01-12 13:58 | CT Scan Report ---
ABDOMEN AND PELVIS CT WITHOUT CONTRAST CT DOSE: 319.94 mGy.cm HISTORY: Acute lower abdominal pain and nausea lower abd pain, prior appy. nausea. syncope.+covid TECHNIQUE: Multiaxial CT images of the abdomen and pelvis were performed without contrast. A dose lo wering technique was utilized adhering to the principles of ALARA. COMPARISON STUDY: CT abdomen and pelvis 10/21/2011 FINDINGS: Trace left pleural effusion with mild subsegmental bibasilar atelectasis. No pneumatosis or pneumoperitoneum. The unenhanced spleen, pancreas, gallbladder and adrenal glands are within normal limits. The liver is within normal limits. Unremarkable kidneys. The urinary bladder is within normal limits. Subcentimeter calcification noted within the lower uterine segment endometrium. Tiny hiatal hernia. No bowel obstruction or bowel wall thickening. Colonic diverticulosis. No CT evidence of acute appendicitis. Tiny fat filled umbilical h ernia. Mild stranding within the central mesentery suggestive of mesenteric radiculitis. Unremarkable soft tissues. Degenerative changes of the spine, pelvis and hips. IMPRESSION: 1. No acute intra-abdominal or intrapelvic abnormality. 2. No bowel obstruction or bowel wall thickening. 3. Colonic diverticulosis. 4. Tiny hiatal hernia. ACT 112: Negative or not required by law. The above report was generated using voice recognition software. It may contain grammatical, syntax o r spelling errors. Electronically signed by: Venu Guzman M.D. 01/12/2023 1:57 PM
--- NOTE | 2023-01-12 15:19 | Electrocardiogram Report ---
Test Reason : Blood Pressure : / mmHG Vent. Rate : 059 BPM Atrial Rate : 059 BPM P-R Int : 164 ms QRS Dur : 088 ms QT Int : 424 ms P-R-T Axes : 077 066 054 degrees QTc Int : 419 ms Sinus bradycardia Otherwise normal ECG When compared with ECG of 25-APR-2021 12:38, No significant change was found Confirmed by Sean Gill ([id number]) on 01/12/2023 3:18:45 PM Referred By: Confirmed By:Herman Gill
[2023-01-12 15:58] LABS: Appearance Urine Clear (Clear); Bilirubin Urine Negative (Negative); Blood Urine Negative (Negative); Color Urine Yellow; Glucose Urine UA Negative (Negative); Ketones Urine 1+ (Negative); Leukocyte Esterase Urine Negative (Negative); Nitrite Urine Negative (Negative); Protein Urine Negative (Negative); Specific Gravity Urine 1.011 (1.000-1.030); Urobilinogen Urine Negative (Negative); pH Urine 7.5 (4.5-7.5)
[2023-01-12] MEDS ORDERED: SODIUM CHLORIDE 0.9% 1000ML 1,000 ML IV SCH (17:15)
[2023-01-12] MEDS ORDERED: GLUCAGON FOR INJ 1 MG VIAL SQ PRN (17:51)
[2023-01-12] MEDS ORDERED: DEXTROSE 50% 50 ML SYRINGE IV PRN (17:51)
[2023-01-12] MEDS ORDERED: CARBOHYDRATES FOR HYPOGLYCEMIA PO PRN (17:51)
[2023-01-12] MEDS ORDERED: GLUCOSE 10 TAB/TUBE PO PRN (17:51)
[2023-01-12] MEDS ORDERED: GLUCOSE 40% GEL 15 GM TUBE PO PRN (17:51)
--- NOTE | 2023-01-12 17:51 | History & Physical Report ---
Date of Service January 12, 2023 Assessment & Plan (1) Syncope and collapse: Plan: -Admit to med/tele -The patient is currently afebrile, hemodynamically stable, and stable on RA -The patient's episode of syncope and generalized weakness are likely multifactorial including dehydration, vasovagal episode with her acute abdominal pain, and her acute Covid-19 infection. Cannot completely rule out a side effect of Paxlovid at this time -He single episode of syncope occurred while having a bowel movement and experiencing severe lower abdominal pain, she has a history of previous vaso- vagal episodes with abdominal pain in the past -No focal neuro defects, no acute ECG abnormalities, continue to monitor on tele -S/P 1L NSS bolus, will continue with LR at 100 mL/hr x 2 bags as she is dehydrated on exam -No other signs to suggest an acute bacterial infection -PRN zofran for nausea and vomiting -Will order am orthostatic vitals and PT/OT consults -AM CBC, CMP, Mag level -BL SCD's and Sub-Q lovenox for DVT PPX (2) COVID-19: Plan: -Tested positive on 01/10 and started Paxlovid outpatient the same day -Currently stable on RA -Will obtain Chest xray on admission -Hold paxlovid for now as she is stable on RA -Supportive treatment for now with incentive spirometry, flutter therapy, prn DuoNebs, scheduled robitussing, and prn O2 (3) Hypokalemia: Plan: -Noted to be 3.4 today -Likely due to poor oral intake and loos BM's -Will give 2 doses of 10 meq IV KCL for now to avoid further GI irritation -Monitor on tele and FU am potassium level (4) Abdominal pain, lower: Plan: -Currently resolved -Likely cramping due to dehydration and current Covid infection -CT of the abd/pelvis WNL -Continue supportive therapy (5) Diabetes mellitus: Plan: -Currently controlled with diet and exercise -Monitor BSG ACHS, goal is 110-140 -Hold lantus for now to avoid hypoglycemia with poor oral intake -Correction factor of 50, hold carb ratio for now to avoid hypoglycemia (6) GERD without esophagitis: Plan: -Continue famotidine (7) Hyperlipidemia: Plan: -Continue to hold statin for now with recent Paxlovid therapy (8) Hypertension: Plan: -Stable -Hold amlodipine and telmisartan for now to avoid further episodes of syncope and hypotension (9) Hypocalcemia: Plan: -Noted to be 8.4 today, likely due to poor oral intake -Monitor am calcium level Plan The patient was discussed with Dr. Mccormick at the time of the admission History of Present Illness Chief Complaint: Syncope, generalized weakness Primary Care Provider: Simba Ray MD Ashley is a 77 year old female with a PMH significant for DM, chronic headaches, HTN, hyperlipidemia, GERD, and osteoporosis who presented to [facility] ED on 01/12/23 with a chief complaint of generalized weakness and syncope. In the ED the patient was found to be afebrile, hemodynamically stable, and stable on RA. Labs were remarkable for a CBC with lymphocyte count of 1.00 otherwise WNL, stable Cr at 0.60 with potassium of 3.4, glucose of 150, calcium of 8.4, Clean UA, and covid/influenza/RSV in process. CT of the abd/pelvis WO contrast was read as "1. No acute intra-abdominal or intrapelvic abnormality. 2. No bowel obstruction or bowel wall thickening. 3. Colonic diverticulosis. 4. Tiny hiatal hernia.". Prior to admission the patient was given 1L NSS and 4 mg IV zofran. Per chart review, the patient tested positive for Covid 19 on 01/10/23. She called her PCP and requested Paxlovid and a decreased dose of her Amlodipine from 5 mg PO daily to 2.5 mg PO daily, both of which were sent to her pharmacy. At the time of the exam the patient was resting in bed in no acute distress, currently stable on RA. She states that she was in her normal state of health until 01/10 when she began to develop congestion, a non-productive cough, abdominal cramping, and non-bloody loose bowel movements. She started her first dose of Paxlovid in the afternoon on 01/10, her last dose was yesterday evening. Since her symptoms began on 01/10 the patient has had a very poor appetite with minimal intake. This am she had to have a bowel movement and had severe abdomi nal cramping while in the bathroom. She called her to come help her as she has a previous episode of vasovagal syncope with painful bowel movements. He got to the bathroom and was able to support her prior to her syncopal episode. She did not fall or hit her head. She was able to walk back to her bedroom with the help of her and felt very weak. They called her PCP who recommended she call EMS and come to the ED. At the time of my exam the patient states that she feels somewhat improved compared to this am but still weak. She was unsteady on her feet while walking to the bathroom earlier in the ED. She currently denies headache, changes in vision, hearing, taste, and smell, chest pain, SOB, current abdominal pain, vomiting, dysuria, hematuria, melena, blood BM's, LE swelling and recent trauma. The patient wishes to be a Full Code and for her and daughter to make medical decisions for her if she cannot make them herself. Please refer to Dr. Mccormick's attestation for any changes to the treatment plan Allergies Allergy/AdvReac Type Severity Reaction Status Date / Time lidocaine Allergy Unknown FAINT Verified 01/12/23 17:58 procaine [From Novocain] Allergy Unknown Unknown Verified 01/12/23 17:58 Home Medications Medication Instructions Recorded Confirmed Type calcium citrate 315 mg 1 tab PO BID 09/13/19 01/12/23 History calcium-vitamin D3 6.25 mcg (250 unit) tablet glucosamine sulfate 500 mg capsule 500 mg PO DAILY 09/13/19 01/12/23 History blood-glucose meter (GreatistTouch #1 ea 04/16/21 01/12/23 Rx Verio Flex Start kit) cholecalciferol (vitamin D3) 25 2,000 unit PO DAILY 07/16/21 01/12/23 History mcg (1,000 unit) capsule famotidine 20 mg tablet (Acid 20 mg PO DAILY #90 tabs 02/14/22 01/12/23 Rx Sk[facility] Nursing Facility Counselor (famotidine)) blood sugar diagnostic (GreatistTouch #200 ea 08/19/22 01/12/23 Rx Verio test strips) telmisartan 80 mg tablet 80 mg PO DAILY #90 tabs 08/19/22 01/12/23 Rx lancets 33 gauge (OneTouch Delica #200 ea 08/20/22 01/12/23 Rx Lancets) multivitamin 1 tab PO Q2D 10/30/22 01/12/23 History amlodipine 2.5 mg tablet 2.5 mg PO DAILY 5 days #5 tabs 01/10/23 01/12/23 Rx nirmatrelvir 300 mg (150 mg See Rx Instructions PO .COMPLEX 01/10/23 01/12/23 Rx x2)-ritonavir 100 mg tablet,dose #30 tabs pack(EUA) (Paxlovid) alendronate 70 mg tablet (Fosamax) 70 mg PO WK 01/12/23 01/12/23 History simvastatin 20 mg tablet 20 mg PO . ON HOLD 01/12/23 01/12/23 History Past Med/Surg History Medical History (Updated 01/12/23 @ 18:36 by Josiah Dowell PA-C) Abnormal Pap smear of cervix Chronic headaches Diabetes mellitus Erosive osteoarthritis of hands, bilateral GERD without esophagitis Headache Hiatal hernia Hyperlipidemia Hyperplastic colon polyp Hypertension Laryngopharyngeal reflux Muscle spasm Neck pain No known health problems Non-smoker Osteopenia Pain in joint of left shoulder Postmenopausal atrophic vaginitis Right knee pain Solitary thyroid nodule Vasovagal syncope Vitamin D deficiency Voice hoarseness Surgical History H/O colonoscopy 08/01, neg, due in 10 years H/O dilation and curettage H/O oral surgery History of appendectomy History of cryosurgery cervix Hx of tonsillectomy S/P arthroscopy of knee Family History Mother Thyroid disorder Malignant melanoma Alzheimer disease Father Pancreatic neoplasm Cancer Denies family history of Ovarian cancer Breast cancer Bleeding disorder Colorectal cancer Social History Smoking Status: Never smoker Second Hand Exposure: No; Hx Alcohol Use: No Hx Substance Use: No Preferred Language: [place] Communication Ability: Effective Communication Ability Comment: persian Visual Impairment: No Limitations Hearing Ability: Normal Turret Lathe Tender Required: No Beliefs That Will Affect Care: None marital status: Current Living Situation: Spouse current occupational status: retired Feels Safe at Home: Yes Childhood Exposure to Second-Hand Smoke: No Dental Care, Regularly: Yes Physical Activity Frequency: Daily Seatbelt Use: always Sunscreen Use: Yes Assistive Devices: Glasses Review of Systems Review of Systems: Denies current fever, chills, headache, changes in vision, hearing, taste, and smell, chest pain, SOB, abdominal pain, nausea, vomiting, hematemesis, melena, dysuria, hematuria, and recent falls. All systems have been reviewed and are otherwise negative. Physical Exam Physical Exam: Physical Exam: General: In no acute distress, stated age, well-nourished, ill-appearing but non-toxic HEENT: Normocephalic, atraumatic, no scleral icterus, pupils around round, symmetrical, and reactive to light, dry mucus membranes, trachea midline, no thyromegaly Chest/Pulm: No respiratory distress, symmetrical chest expansion, clear breath sounds throughout Cardiac: RRR, no murmurs noted Abdomen: Negative for ascites and bruising, normoactive bowel sounds, soft, non-tender to palpation throughout Musculoskeletal: Symmetrical and without signs of acute trauma, upper and lower extremities with full ROM, no atrophy, spasticity, or flaccidity Extremities: Radial, dorsalis pedis, and posterior tibial pulses are intact and symmetrical, no edema noted in the BL LE's Skin: Warm, dry, no rashes , lesions, or scars noted Neuro: Alert and oriented to person, place, month, year, and president, no focal defects, CN II-XII tested and intact, no tremors noted Psych: No acute distress, calm and cooperative during the exam Results & Data Results & Data Vital Signs (Past 12 Hours) Vital Signs Temp Pulse Pulse Resp BP BP Pulse Ox 01/12/23 17:10 65 22 98 01/12/23 17:00 69 16 99 01/12/23 17:00 126/49 L 01/12/23 16:50 61 17 96 01/12/23 16:40 64 16 95 01/12/23 16:30 66 17 97 01/12/23 16:30 134/62 01/12/23 16:20 61 15 96 01/12/23 16:10 60 20 97 01/12/23 16:00 58 L 14 97 01/12/23 16:00 121/55 L 01/12/23 15:50 61 14 97 01/12/23 15:40 73 21 01/12/23 15:31 67 19 97 01/12/23 15:31 131/50 L 01/12/23 15:30 71 14 97 01/12/23 15:20 67 20 97 01/12/23 15:10 66 17 96 01/12/23 15:00 69 18 95 01/12/23 15:00 118/56 L 01/12/23 14:50 63 16 95 01/12/23 14:40 62 17 95 01/12/23 14:30 60 14 95 01/12/23 14:30 120/52 L 01/12/23 14:20 63 19 96 01/12/23 14:10 67 22 97 01/12/23 14:00 63 16 96 01/12/23 14:00 130/52 L 01/12/23 13:50 59 L 14 95 01/12/23 13:40 59 L 15 96 01/12/23 13:30 63 22 97 01/12/23 13:30 147/57 H 01/12/23 13:10 60 13 96 01/12/23 13:00 58 L 12 95 01/12/23 13:00 144/54 H 01/12/23 12:50 60 17 94 01/12/23 12:43 60 17 99 01/12/23 14:41 63 14 120/52 L 98 01/12/23 12:25 01/12/23 12:08 36.5 C 65 12 142/59 H 100 01/12/23 12:44 61 O2 Del Method 01/12/23 17:10 Room Air 01/12/23 17:00 01/12/23 17:00 01/12/23 16:50 01/12/23 16:40 01/12/23 16:30 01/12/23 16:30 01/12/23 16:20 01/12/23 16:10 01/12/23 16:00 01/12/23 16:00 01/12/23 15:50 01/12/23 15:40 01/12/23 15:31 01/12/23 15:31 01/12/23 15:30 01/12/23 15:20 01/12/23 15:10 01/12/23 15:00 01/12/23 15:00 01/12/23 14:50 01/12/23 14:40 01/12/23 14:30 01/12/23 14:30 01/12/23 14:20 01/12/23 14:10 01/12/23 14:00 01/12/23 14:00 01/12/23 13:50 01/12/23 13:40 01/12/23 13:30 01/12/23 13:30 01/12/23 13:10 Room Air 01/12/23 13:00 01/12/23 13:00 01/12/23 12:50 01/12/23 12:43 01/12/23 14:41 01/12/23 12:25 Room Air 01/12/23 12:08 Room Air 01/12/23 12:44 Laboratory Results Abnormal lab results 01/12/23 01/12/23 01/12/23 Range/Units 12:37 12:37 15:43 Lymph # (Auto) 1.00 L (1.2-3.4) K/uL Potassium 3.4 L (3.5-5.1) mmol/L BUN/Creatinine Ratio 23.3 H (10-20) Glucose 150 H (70-99(Fasting)) mg/dl Calcium 8.4 L (8.5-10.1) mg/dl Urine Ketones 1+ H (Negative) SARS-CoV-2 (PCR) (Negative) 01/12/23 Range/Units 17:13 Lymph # (Auto) (1.2-3.4) K/uL Potassium (3.5-5.1) mmol/L BUN/Creatinine Ratio (10-20) Glucose (70-99(Fasting)) mg/dl Calcium (8.5-10.1) mg/dl Urine Ketones (Negative) SARS-CoV-2 (PCR) POSITIVE A* (Negative) Diagnostic Findings Abdomen/Pelvis CT 01/12/23 12:[address] WITHOUT CONTRAST CT DOSE: 319.94 mGy.cm HISTORY: Acute lower abdominal pain and nausea lower abd pain, prior appy. nausea. syncope.+covid TECHNIQUE: Multiaxial CT images of the abdomen and pelvis were performed without contrast. A dose lowering technique was utilized adhering to the principles of ALARA. COMPARISON STUDY: CT abdomen and pelvis 10/21/2011 FINDINGS: Trace left pleural effusion with mild subsegmental bibasilar atelectasis. No pneumatosis or pneumoperitoneum. The unenhanced spleen, pancreas, gallbladder and adrenal glands are within normal limits. The liver is within normal limits. Unremarkable kidneys. The urinary bladder is within normal limits. Subcentimeter calcification noted within the lower uterine segment endometrium. Tiny hiatal hernia. No bowel obstruction or bowel wall thickening. Colonic diverticulosis. No CT evidence of acute appendicitis. Tiny fat filled umbilical hernia. Mild stranding within the central mesentery suggestive of mesenteric radiculitis. Unremarkable soft tissues. Degenerative changes of the spine, pelvis and hips. IMPRESSION: 1. No acute intra-abdominal or intrapelvic abnormality. 2. No bowel obstruction or bowel wall thickening. 3. Colonic diverticulosis. 4. Tiny hiatal hernia. ACT 112: Negative or not required by law. The above report was generated using voice recognition software. It may contain grammatical, syntax or spelling errors. Electronically signed by: Venu Guzman M.D. 01/12/2023 1:57 PM ECG Additional Comments: Sinus bradycardia Otherwise normal ECG When compared with ECG of 25-APR-2021 12:38, No significant change was found Confirmed by Sean Gill ([id number]) on 01/12/2023 3:18:45 PM Code Status & VTE Plan Code Status Full code VTE Prophylaxis Plan VTE Prophylaxis will be ordered: Yes Supervising Physician Co-Signing Physician Notes Patient seen and examined, chart reviewed, case discussed with Josiah Dowell PA-C and I agree with the assessment and plan as above except as otherwise noted Labs and images reviewed Patient seen at the bedside. She reports she overall feels well and is not short of breath at assessment. Reports she had an episode of lightheadedness and nearly passing out similar to prior vasovagal syncope. Currently she feels well. No chest pain, chest pressure, fever, chills. Agree with potassium with patient, patient with a somewhat upset stomach so will give IV rather than p.o. We will follow on telemetry, overall suspect vasovagal in the setting of poor p.o. intake and will be able to go home tomorrow. Agree with recommendations above. PG Care Time/CCT Total # of Minutes Spent Total Time Spent with Patient: Total time spent is greater than 50% in coordination of care (as documented) at patient's floor/unit and/or counseling patient: Coding [place] [address] INT INP/OBS CARE 3/75MIN Patient Type Established Medical Decision Making High Complexity Diagnoses Syncope and collapse R55 COVID-19 U07.1 Hypokalemia E87.6 Abdominal pain, lower R10.30 Diabetes mellitus E11.9 Diabetes mellitus complication status: without complication Diabetes mellitus group home insulin use: without long term care phlebotomist use Diabetes mellitus type: type 2 GERD without esophagitis K21.9 Hyperlipidemia E78.5 Hyperlipidemia type: unspecified Hypertension I10 Hypertension type: unspecified Hypocalcemia E83.51 (5) Diabetes mellitus Diabetes mellitus complication status: without complication Diabetes mellitus group home insulin use: without long term care phlebotomist use Diabetes mellitus type: type 2 Qualified Code(s): E11.9 - Type 2 diabetes mellitus without complications (7) Hyperlipidemia Hyperlipidemia type: unspecified Qualified Code(s): E78.5 - Hyperlipidemia, unspecified (8) Hypertension Hypertension type: unspecified Qualified Code(s): I10 - Essential (primary) hypertension
[2023-01-12] MEDS ORDERED: POTASSIUM CHLORIDE CRTAB 20 MEQ TABCR PO SCH (18:00)
[2023-01-12 18:06] LABS: Influenza A virus by PCR Negative (Neg); Influenza B virus by PCR Negative (Neg); RSV by PCR Negative (Neg)
[2023-01-12 18:10] LABS: SARS CoV2 RNA(COVID-19) Ceph POSITIVE (Negative)
[2023-01-12] MEDS ORDERED: ACETAMINOPHEN 325 MG TAB PO PRN (18:29)
[2023-01-12] MEDS ORDERED: ONDANSETRON INJ 2 MG/ML 2 ML VIAL IV PRN (18:39)
[2023-01-12] MEDS: LACTATED RINGER'S 1,000 ML IV SCH (18:59)
[2023-01-12] MEDS: POTASSIUM CHLORIDE / WTR 10 MEQ/100 ML PLCT IV SCH ×2 (19:01→20:04)
[2023-01-12] MEDS: ALBUT/IPRATROP 3MG/0.5MG NEB 3 ML VIAL NEB SCH (19:08)
[2023-01-12] MEDS: guaiFENesin SUGAR FREE 200 MG/10 ML UDC PO SCH (19:08)
[2023-01-12] MEDS ORDERED: LANTUS PER UNIT CHARGE SQ SCH (21:00)
[2023-01-12] MEDS: INSULIN ASPART PER UNIT CHARGE SC SCH (21:52)
[2023-01-12] MEDS: FAMOTIDINE 20 MG TAB PO SCH (23:57)
[2023-01-12] MEDS: ENOXAPARIN INJ 40 MG/0.4 ML SYR SQ SCH (23:58)
[2023-01-13] MEDS: guaiFENesin SUGAR FREE 200 MG/10 ML UDC PO SCH ×5 (01:47→23:01)
[2023-01-13] MEDS: LACTATED RINGER'S 1,000 ML IV SCH (04:29)
--- NOTE | 2023-01-13 06:55 | XRay Report ---
XR chest 1V portable HISTORY: 77 years-old Female covid +, SOB acute shortness of breath COMPARISON: Chest radiograph 04/25/2021 TECHNIQUE: AP view of the chest FINDINGS: Cardiac mediastinal and hilar silhouettes are within normal limits. No pneumothorax, pleural effusion , airspace consolidation or pulmonary edema. Degenerative changes of the shoulders and spine. IMPRESSION: No acute process. ACT 112: Negative or not required by law. The above report was generated using voice recognition software. It may contain grammatical, syntax o r spelling errors. Electronically signed by: Venu Guzman M.D. 01/13/2023 6:54 AM
[2023-01-13] MEDS: ALBUT/IPRATROP 3MG/0.5MG NEB 3 ML VIAL NEB SCH (07:37)
[2023-01-13] MEDS: INSULIN ASPART PER UNIT CHARGE SC SCH ×4 (07:54→20:27)
[2023-01-13] MEDS: FAMOTIDINE 20 MG TAB PO SCH (07:59)
[2023-01-13 08:55] LABS: Basophils # (auto) 0.03 K/uL (0-0.2); Basophils % (auto) 0.6 %; Eosinophils # (auto) 0.06 K/uL (0-0.50); Eosinophils % (auto) 1.2 %; Hematocrit (blood only) 34.7 % (37.0-47.0); Hemoglobin 11.7 g/dl (12.0-16.0); Immature Granulocytes # (auto) 0.01 K/uL (0.01-0.20); Immature Granulocytes % (auto) 0.2 %; Lymphocytes # (auto) 1.97 K/uL (1.2-3.4); Lymphocytes % (auto) 37.9 %; Mean Corpuscular Hemoglobin 29.3 pg (25.0-34.0); Mean Corpuscular Hgb Conc 33.7 g/dL (32.0-36.0); Mean Platelet Volume 10.2 fL (9.4-12.4); Monocytes # (auto) 0.42 K/uL (0.11-0.59); Monocytes % (auto) 8.1 %; Neutrophils # (auto) 2.71 K/uL (1.40-6.50); Platelet Count 206 K/uL (130-400); RDW Coefficient of Variation 13.1 % (11.5-14.5); RDW Standard Deviation 41.4 fL (36.4-46.3); Red Blood Count 3.99 M/uL (4.20-5.40)
[2023-01-13 09:20] LABS: Albumin Globulin Ratio 1.7 (0.9-2); Albumin Level 3.8 gm/dl (3.4-5.0); BUN Creatinine Ratio 19.6 (10-20); Bilirubin,Total 0.4 mg/dl (0.2-1.0); Calcium 8.3 mg/dl (8.5-10.1); Est GFR (Non-African American) 90.6 ml/min; Globulin 2.3 gm/dl (2.5-4.0); Magnesium 1.9 mg/dl (1.7-2.4); Potassium 3.4 mmol/L (3.5-5.1); Total Protein 6.1 gm/dl (6.0-8.3)
[2023-01-13] MEDS ORDERED: ALBUT/IPRATROP 3MG/0.5MG NEB 3 ML VIAL NEB PRN (10:09)
[2023-01-13] MEDS ORDERED: POTASSIUM CHLORIDE CRTAB 20 MEQ TABCR PO STA (15:02)
--- NOTE | 2023-01-13 15:04 | Hospitalist Progress Note ---
Date of Service January 13, 2023 Assessment & Plan (1) Syncope and collapse: Plan: Patient has a history of vasovagal syncope in the past. This episode was very similar to her prior episode. However this time she had COVID and was weak and dehydrated prior to the episode. I will discontinue IV fluids I will check orthostatic vital signs tomorrow If stable, will discharge her. I doubt that Paxlovid has anything to do with this vasovagal episode. (2) COVID-19: Plan: -Tested positive on 01/10 and started Paxlovid outpatient the same day -Currently stable on RA Chest x-ray negative Resume Paxlovid (3) Hypokalemia: Plan: -Noted to be 3.4 today Replete (4) Abdominal pain, lower: Plan: -Currently resolved -Likely cramping due to dehydration and current Covid infection -CT of the abd/pelvis WNL -Continue supportive therapy (5) Diabetes mellitus: Plan: -Currently controlled with diet and exercise -Monitor BSG ACHS, goal is 110-140 -Hold lantus for now to avoid hypoglycemia with poor oral intake -Correction factor of 50, hold carb ratio for now to avoid hypoglycemia (6) GERD without esophagitis: Plan: -Continue famotidine (7) Hyperlipidemia: Plan: -Continue to hold statin for now with recent Paxlovid therapy (8) Hypertension: Plan: -Stable -Hold amlodipine and telmisartan for now to avoid further episodes of syncope and hypotension (9) Hypocalcemia: Plan: -Noted to be 8.4 today, likely due to poor oral intake Admission and Anticipated Discharge Date Admission Date: January 12, 2023 Subjective Patient feels better today. Does not feel dizzy or lightheaded. No chest pain or shortness of breath. Feels weak in general. Review of Systems Review of Systems: All systems reviewed & are unremarkable except as noted in Subjective Physical Exam Physical Exam: General: Awake, conversant Heart: S1, S2/regular rate and rhythm, no murmur rubs or gallops Lungs: Clear to auscultation bilaterally. Normal effort Abdomen: Soft/nontender/nondistended. No hepatosplenomegaly Extremities: No clubbing/cyanosis. No edema Behavior: Appropriate, cooperative Results & Data Results & Data Vital Signs (Past 12 Hours) Vital Signs Temp Pulse Pulse Resp BP Pulse Ox O2 Del Method 01/13/23 11:35 36.6 C 72 18 132/70 95 Room Air 01/13/23 07:39 65 16 95 Room Air 01/13/23 07:33 36.7 C 64 18 106/58 L 95 Room Air 01/13/23 07:11 63 01/13/23 03:52 36.5 C 61 16 107/57 L 96 Room Air Laboratory Results Abnormal lab results 01/12/23 01/12/23 01/12/23 Range/Units 15:43 17:13 18:53 RBC (4.20-5.40) M/uL Hgb (12.0-16.0) g/dl Hct (37.0-47.0) % Potassium (3.5-5.1) mmol/L Chloride (98-107) mmol/L Creatinine (0.6-1.2) mg/dl Glucose (70-99(Fasting)) mg/dl POC Glucose 183 H (70-99) mg/dl Calcium (8.5-10.1) mg/dl Globulin (2.5-4.0) gm/dl Urine Ketones 1+ H (Negative) SARS-CoV-2 (PCR) POSITIVE A* (Negative) 01/12/23 01/13/23 01/13/23 Range/Units 21:21 07:27 08:27 RBC 3.99 L (4.20-5.40) M/uL Hgb 11.7 L (12.0-16.0) g/dl Hct 34.7 L (37.0-47.0) % Potassium (3.5-5.1) mmol/L Chloride (98-107) mmol/L Creatinine (0.6-1.2) mg/dl Glucose (70-99(Fasting)) mg/dl POC Glucose 157 H 106 H (70-99) mg/dl Calcium (8.5-10.1) mg/dl Globulin (2.5-4.0) gm/dl Urine Ketones (Negative) SARS-CoV-2 (PCR) (Negative) 01/13/23 01/13/23 Range/Units 08:27 11:21 RBC (4.20-5.40) M/uL Hgb (12.0-16.0) g/dl Hct (37.0-47.0) % Potassium 3.4 L (3.5-5.1) mmol/L Chloride 109 H (98-107) mmol/L Creatinine 0.56 L (0.6-1.2) mg/dl Glucose 128 H (70-99(Fasting)) mg/dl POC Glucose 124 H (70-99) mg/dl Calcium 8.3 L (8.5-10.1) mg/dl Globulin 2.3 L (2.5-4.0) gm/dl Urine Ketones (Negative) SARS-CoV-2 (PCR) (Negative) Diagnostic Findings Chest X-Ray 01/12/23 18:23 XR chest 1V portable HISTORY: 77 years-old Female covid +, SOB acute shortness of breath COMPARISON: Chest radiograph 04/25/2021 TECHNIQUE: AP view of the chest FINDINGS: Cardiac mediastinal and hilar silhouettes are within normal limits. No pneumothorax, pleural effusion, airspace consolidation or pulmonary edema. Degenerative changes of the shoulders and spine. IMPRESSION: No acute process. ACT 112: Negative or not required by law. The above report was generated using voice recognition software. It may contain grammatical, syntax or spelling errors. Electronically signed by: Venu Guzman M.D. 01/13/2023 6:54 AM PG Care Time/CCT Total # of Minutes Spent Total Time Spent with Patient: Total time spent is greater than 50% in coordination of care (as documented) at patient's floor/unit and/or counseling patient: Coding Level of Care Code 16466 SUB INP/OBS CARE 2/35MIN Diagnoses Syncope and collapse R55 COVID-19 U07.1 Hypokalemia E87.6 Abdominal pain, lower R10.30 Diabetes mellitus E11.9 Diabetes mellitus type: type 2 Diabetes mellitus snf insulin use: without snf use Diabetes mellitus complication status: without complication GERD without esophagitis K21.9 Hyperlipidemia E78.5 Hyperlipidemia type: unspecified Hypertension I10 Hypertension type: unspecified Hypocalcemia E83.51 (5) Diabetes mellitus Diabetes mellitus type: type 2 Diabetes mellitus intermediate manager insulin use: without snf use Diabetes mellitus complication status: without complication Qualified Code(s): E11.9 - Type 2 diabetes mellitus without complications (7) Hyperlipidemia Hyperlipidemia type: unspecified Qualified Code(s): E78.5 - Hyperlipidemia, unspecified (8) Hypertension Hypertension type: unspecified Qualified Code(s): I10 - Essential (primary) hypertension
[2023-01-13] MEDS: ENOXAPARIN INJ 40 MG/0.4 ML SYR SQ SCH (23:01)
[2023-01-14] MEDS: guaiFENesin SUGAR FREE 200 MG/10 ML UDC PO SCH ×2 (06:10→12:04)
[2023-01-14 07:13] LABS: Basophils # (auto) 0.02 K/uL (0-0.2); Basophils % (auto) 0.4 %; Eosinophils # (auto) 0.13 K/uL (0-0.50); Eosinophils % (auto) 2.4 %; Hemoglobin 12.4 g/dl (12.0-16.0); Immature Granulocytes # (auto) 0.01 K/uL (0.01-0.20); Immature Granulocytes % (auto) 0.2 %; Lymphocytes # (auto) 2.14 K/uL (1.2-3.4); Lymphocytes % (auto) 39.9 %; Mean Corpuscular Hemoglobin 29.1 pg (25.0-34.0); Mean Corpuscular Hgb Conc 34.4 g/dL (32.0-36.0); Mean Corpuscular Volume 84.5 fL (80.0-100.0); Mean Platelet Volume 10.2 fL (9.4-12.4); Monocytes # (auto) 0.49 K/uL (0.11-0.59); Monocytes % (auto) 9.1 %; Neutrophils # (auto) 2.57 K/uL (1.40-6.50); Platelet Count 223 K/uL (130-400); RDW Coefficient of Variation 13.1 % (11.5-14.5); Red Blood Count 4.26 M/uL (4.20-5.40); White Blood Count 5.36 K/ul (4.8-10.8)
[2023-01-14 07:41] LABS: Albumin Globulin Ratio 1.6 (0.9-2); BUN Creatinine Ratio 23.2 (10-20); Bilirubin,Total 0.4 mg/dl (0.2-1.0); Calcium 8.8 mg/dl (8.5-10.1); Creatinine Clr Calc Pharmacy 64.9 ml/min; Est GFR (Non-African American) 84.6 ml/min; Globulin 2.5 gm/dl (2.5-4.0); Potassium 3.9 mmol/L (3.5-5.1); Total Protein 6.5 gm/dl (6.0-8.3)
[2023-01-14] MEDS: INSULIN ASPART PER UNIT CHARGE SC SCH ×2 (09:06→12:04)
[2023-01-14] MEDS: FAMOTIDINE 20 MG TAB PO SCH (09:54)
--- NOTE | 2023-01-14 10:34 | Discharge Summary ---
Date of Service January 14, 2023 Admission HPI Per Admitting Provider Ashley is a 77 year old female with a PMH significant for DM, chronic headaches, HTN, hyperlipidemia, GERD, and osteoporosis who presented to [facility] ED on 01/12/23 with a chief complaint of generalized weakness and syncope. In the ED the patient was found to be afebrile, hemodynamically stable, and stable on RA. Labs were remarkable for a CBC with lymphocyte count of 1.00 otherwise WNL, stable Cr at 0.60 with potassium of 3.4, glucose of 150, calcium of 8.4, Clean UA, and covid/influenza/RSV in process. CT of the abd/pelvis WO contrast was read as "1. No acute intra-abdominal or intrapelvic abnormality. 2. No bowel obstruction or bowel wall thickening. 3. Colonic diverticulosis. 4. Tiny hiatal hernia.". Prior to admission the patient was given 1L NSS and 4 mg IV zofran. Per chart review, the patient tested positive for Covid 19 on 01/10/23. She called her PCP and requested Paxlovid and a decreased dose of her Amlodipine from 5 mg PO daily to 2.5 mg PO daily, both of which were sent to her pharmacy. At the time of the exam the patient was resting in bed in no acute distress, currently stable on RA. She states that she was in her normal state of health until 01/10 when she began to develop congestion, a non-productive cough, abdominal cramping, and non-bloody loose bowel movements. She started her first dose of Paxlovid in the afternoon on 01/10, her last dose was yesterday evening. Since her symptoms began on 01/10 the patient has had a very poor appetite with minimal intake. This am she had to have a bowel movement and had severe abdominal cramping while in the bathroom. She called her to come help her as she has a previous episode of vasovagal syncope with painful bowel movements. He got to the bathroom and was able to support her prior to her syncopal episode. She did not fall or hit her head. She was able to walk back to her bedroom with the help of her and felt very weak. They called her PCP who recommended she call EMS and come to the ED. At the time of my exam the patient states that she feels somewhat improved compared to this am but still weak. She was unsteady on her feet while walking to the bathroom earlier in the ED. She currently denies headache, changes in vision, hearing, taste, and smell, chest pain, SOB, current abdominal pain, vomiting, dysuria, hematuria, melena, blood BM's, LE swelling and recent trauma. The patient wishes to be a Full Code and for her and daughter to make medical decisions for her if she cannot make them herself. Please refer to Dr. Mccormick's attestation for any changes to the treatment plan Admission Exam Per Admitting Provider General:In no acute distress, stated age, well-nourished, ill-appearing but non-toxic HEENT:Normocephalic, atraumatic, no scleral icterus, pupils around round, symmetrical, and reactive to light, dry mucus membranes, trachea midline, no thyromegaly Chest/Pulm:No respiratory distress, symmetrical chest expansion, clear breath sounds throughout Cardiac:RRR, no murmurs noted Abdomen:Negative for ascites and bruising, normoactive bowel sounds, soft, non-tender to palpation throughout Musculoskeletal:Symmetrical and without signs of acute trauma, upper and lower extremities with full ROM, no atrophy, spasticity, or flaccidity Extremities:Radial, dorsalis pedis, and posterior tibial pulses are intact and symmetrical, no edema noted in the BL LE's Skin:Warm, dry, no rashes , lesions, or scars noted Neuro:Alert and oriented to person, place, month, year, and president, no focal defects, CN II-XII tested and intact, no tremors noted Psych:No acute distress, calm and cooperative during the exam Principal Diagnosis Vasovagal syncope Discharge Exam General: Awake, conversant Heart: S1, S2/regular rate and rhythm, no murmur rubs or gallops Lungs: Clear to auscultation bilaterally. Normal effort Abdomen: Soft/nontender/nondistended. No hepatosplenomegaly Extremities: No clubbing/cyanosis. No edema Behavior: Appropriate, cooperative Discharge Data Allergies Allergy/AdvReac Type Severity Reaction Status Date / Time lidocaine Allergy Unknown FAINT Verified 01/12/23 17:58 procaine [From Novocain] Allergy Unknown Unknown Verified 01/12/23 17:58 Consultations 01/12/23 17:31 ED Decision to Admit Stat 01/13/23 15:07 Consult [facility] [place] Routine Ordered Studies 01/12/23 12:43 CT Abd and Pelvis [CT abd pelvis wo con] Stat Hospital Course (1) Syncope and collapse: Patient has a history of vasovagal syncope in the past. This episode was very similar to her prior episode. However this time she had COVID and was weak and dehydrated prior to the episode. I discontinued fluids and rechecked her orthostatic vital signs which were stable This was most likely another vasovagal syncope. Advised her that the next time she has no warning signs of another vasovagal episode, she should lay flat in the supine position to allow blood supply to her brain. I doubt that Paxlovid has anything to do with this vasovagal episode. (2) COVID-19: -Tested positive on 01/10 and started Paxlovid outpatient the same day -Currently stable on RA Chest x-ray negative Resume Paxlovid (3) Hypokalemia: Repleted (4) Abdominal pain, lower: -Currently resolved -Likely cramping due to dehydration and current Covid infection -CT of the abd/pelvis WNL -Continue supportive therapy (5) Diabetes mellitus: -Currently controlled with diet and exercise -Monitor BSG ACHS, goal is 110-140 -Hold lantus for now to avoid hypoglycemia with poor oral intake -Correction factor of 50, hold carb ratio for now to avoid hypoglycemia (6) GERD without esophagitis: -Continue famotidine (7) Hyperlipidemia: -Continue to hold statin for now with recent Paxlovid therapy (8) Hypertension: -Stable -Hold amlodipine and telmisartan for now to avoid further episodes of syncope and hypotension (9) Hypocalcemia: -Noted to be 8.4 today, likely due to poor oral intake Total Time Total Time Spent Total Time Spent (In Minutes): 35 Discharge Plan Discharge Items Patient Disposition: Home - Self-Care Reason For Visit: GENERALIZED WEAKNESS, SYNCOPE Discharge Diagnosis: Vasovagal syncope COVID infection Activity: Resume your previous activity Non-emergency contact: Primary Care Provider Call non-emergency contact if: you have any medication questions and your symptoms worsen Follow-up/Referrals: Simba Ray MD [Primary Care Provider] - 01/19/23 9:00 am (Appointment with Harika Shapich PA-C Please arrive 15 minutes prior to appointment time ) Diet: Carb Consistent or DM2 and Heart Healthy Addtl Attending Provider Instructions: Follow-up with PCP in 1 week The next time you feel the warning signs of a vasovagal episode, you can try laying yourself down to a supine position to allow more blood supply to your brain. This will prevent you from passing out. Pending Studies at Discharge: No Stand-Alone Forms: My [facility] Medications and DC Order Prescriptions: Continued (DME) blood-glucose meter [OneTouch Verio Flex Start] Kit See Rx Instructions .ROUTE .MEDSUPPLY Qty: 1 0RF Rx Instructions: TEST ONCE DAILY famotidine [Acid Operations Coordinator (famotidine)] 20 mg tablet 20 mg PO DAILY Qty: 90 3RF (DME) lancets [OneTouch Delica Lancets] 33 gauge misc See Rx Instructions .ROUTE .MEDSUPPLY Qty: 200 3RF Rx Instructions: TEST ONCE DAILY amlodipine 2.5 mg tablet 2.5 mg PO DAILY 5 Days Qty: 5 0RF Paxlovid (EUA) 300 mg (150 mg x 2)-100 mg tablets,dose pack See Rx Instructions PO .COMPLEX Qty: 30 0RF Rx Instructions: take TWO 150 mg tablets of nirmatrelvir with ONE 100 mg tablet of ritonavir twice daily for 5 days PO telmisartan 80 mg tablet 80 mg PO DAILY Qty: 90 3RF (DME) OneTouch Verio test strips Strip See Rx Instructions .ROUTE .MEDSUPPLY Qty: 200 3RF Rx Instructions: TEST ONCE DAILY calcium citrate-vitamin D3 315 mg- 250 unit tablet 1 tab PO BID glucosamine sulfate 500 mg capsule 500 mg PO DAILY cholecalciferol (vitamin D3) 25 mcg (1,000 unit) capsule 2,000 unit PO DAILY alendronate [Fosamax] 70 mg tablet 70 mg PO WK Rx Instructions: wednesdays simvastatin 20 mg tablet 20 mg PO . ON HOLD multivitamin Tablet 1 tab PO Q2D Discharge Orders: Discharge Order (Routine); Ordered 01/14/23 Ordered By: Brian Molina Admission Data Admit Date/Time: 01/12/23 17:51 Attending Provider: Brian Molina Admit Provider: Warren Mccormick Primary Care Provider: Simba Ray Other Providers: Warren Mccormick Other Interventions: Discharge Summary Assessment (RN) Last Done: 01/14/23 11:35 Coding Level of Care Code 65578 INP/OBS DISCH >30 MIN Diagnoses Syncope and collapse R55 COVID-19 U07.1 Hypokalemia E87.6 Abdominal pain, lower R10.30 Diabetes mellitus E11.9 Diabetes mellitus complication status: without complication Diabetes mellitus international marketing coordinator insulin use: without international marketing coordinator use Diabetes mellitus type: type 2 GERD without esophagitis K21.9 Hyperlipidemia E78.5 Hyperlipidemia type: unspecified Hypertension I10 Hypertension type: unspecified Hypocalcemia E83.51
== END 2023-01-14 12:56 | disposition home or self-care (01) ==
LOC: ED 12:20 → 2N 12:20 → SUATTDRO 17:51 → 2N 21:50

== ENCOUNTER 2024-09-26 22:03 | Observation (INO) ==
--- NOTE | 2024-09-26 22:48 | Emergency Department Note ---
Impression & Plan Dizziness, Hypertension, Ataxia, Vertigo ED Provider Note NAME: CHAD DAY AGE: 79 SEX: F : 1945 ARRIVES VIA: Walk-In INFORMANT: Patient, ED PROVIDER(S): Simba Brothers DO CHIEF COMPLAINT: Dizziness HPI: The patient is a 79-year-old female who presented to the emergency department for an evaluation of dizziness. The patient has been noticing over the course the last several days that she has been having episodes of elevated blood pressure and dizziness. The patient denies having any trauma. She states she has trouble walking when this occurs. She also notices that her blood pressure has been very elevated. She took an extra dose of her calcium channel ludwig this evening. She has been in contact with her daughter to try to help manage this. The patient denies having any recent changes to her blood pressure medications. She denies having any lower extremity swelling or pain. The patient states her that this time have improved. ROS: See above HPI for pertinent positives & negatives. A total of 10 systems reviewed and were otherwise negative. PAST MEDICAL HISTORY: See Below PAST SURGICAL HISTORY: See Below FAMILY HISTORY: See Below SOCIAL HISTORY: See Below HOME MEDICATIONS: See Below ALLERGIES: See Below VITALS: See Below PHYSICAL EXAMINATION: GENERAL: Patient is awake alert in no acute distress patient is resting comfortably and showing no signs of anxiety EYES: The conjunctivae are clear. The pupils are round and reactive. There is no nystagmus elicited. EARS, NOSE, MOUTH AND THROAT: The nose is without any evidence of any deformity. Mucous membranes are moist. Tongue is midline. NECK: The neck is nontender and supple. RESPIRATORY: Normal respiratory effort is noted there is no evidence of wheezing rhonchi or rales CARDIOVASCULAR: Regular rate and rhythm noted there no murmurs rubs or gallops normal S1 normal S2. GASTROINTESTINAL: The abdomen is soft. Abdomen is nontender. MUSCULOSKELETAL/EXTREMITIES: There is no evidence of gross deformity full range of motion is noted in the hips and shoulders. SKIN: There is no obvious evidence of any rash. There are no petechiae, pallor or cyanosis noted. NEUROLOGIC: Patient is awake alert and oriented x3 strength is symmetric patellar reflexes are 2+ bilaterally. [id number] was symmetric. Rapid alternating movements were normal. Speech was clear. MEDICAL DECISION MAKING: The patient is a 79-year-old female who presented to the emergency department for an evaluation of dizziness. The patient's been noticing that her blood pressure has been elevated. She was not made a stroke alert because her last known well time was greater than 24 hours ago. She had no obvious focal neurologic deficits on physical exam but when we tried to ambulate the patient she had significant ataxia and required help to walk to the bathroom. The patient did take extra blood pressure medication prior to coming in the emergency department. Observing her blood pressure in the emergency department did reveal that her blood pressure improved without any specific intervention. The patient was treated with meclizine in the emergency department. I discussed the patient's laboratory and radiographic studies with her. Given her ongoing symptoms of vertigo as well as her ataxia I do not feel the patient would be a good candidate for outpatient management. For this reason I discussed her condition with the on-call [facility] hospitalist. The patient was not found to be in atrial fibrillation. Blood pressure was improved. CT angiography of the head and neck did not reveal any significant cerebral or carotid artery disease. Triage Nursing notes reviewed. Prior medical records reviewed Vital Signs: reviewed and remarkable for no significant abnormalities Differential diagnosis: Benign positional vertigo, dehydration, hypovolemia, anemia, tumor, infection, hypoglycemia, electrolyte abnormalities, cardiac sources, intracerebral event, toxicologic, neurologic, as well as other pathologies. ER treatment provided: See below Diagnostics interpreted by me: ECG: EKG was obtained in the emergency department. My interpretation is normal sinus rhythm at 72 bpm. There is no ectopy. There is no acute ST segment abnormalities noted. This was compared to a tracing from January 12, 2023. No changes were noted. Cardiac Monitoring: An order was placed for continuous cardiac monitoring. The monitor shows a rate of 66 bpm with sinus rhythm. Laboratory studies: [As stated above and show below.] Imaging studies: [See below.] [Radiographic imaging was reviewed by myself] Consultation(s): I discussed this case with Sw[facility] Med/Surg History Problem List (Updated 09/27/24 @ 02:07 by Simba Brothers DO) Vertigo (Acute) Ataxia (Acute) Dizziness (Acute) Proteinuria due to type 2 diabetes mellitus Osteoarthritis Bilateral hand pain Colon cancer screening Encounter for pre-operative examination Vitamin D deficiency (Acute) Postmenopausal atrophic vaginitis (Acute) Neck pain (Acute) Laryngopharyngeal reflux (Acute) Headache (Acute) Lump in the groin Laryngitis Chronic rhinitis Neck pain Dehydration (Acute) Abdominal pain Fatigue Abnormal Pap smear of cervix Post-menopausal COVID-19 (Acute) Syncope and collapse (Acute) Hypokalemia Hypocalcemia Sinusitis History of COVID-19 Excessive cerumen in right ear canal History of ankle fracture (02/22/22) Left Ankle. displaced distal left fibular fracture and fracture of the posterior left malleolus without significant displacement Chronic headaches (Acute) Diabetes mellitus (Acute) pt reports "pre diabetic" Erosive osteoarthritis of hands, bilateral (Acute) Hypertension (Acute) Osteopenia (Acute) Solitary thyroid nodule (Acute) pt denies Vasovagal syncope (Acute) treated at [facility] x2 in the last 2 years - last episode 12/2022. treated at [facility] emergency room Medical History History of COVID-19 01/12/23 - mild flu like symptoms. GERD (gastroesophageal reflux disease) Hiatal hernia Hyperlipidemia Voice hoarseness Surgical History History of esophagogastroduodenoscopy (EGD) S/P vein stripping History of open reduction and internal fixation (ORIF) procedure left ankle with hardware History of cryosurgery cervix (pt denies) Hx of tonsillectomy H/O colonoscopy 08/01, neg, due in 10 years H/O oral surgery S/P arthroscopy of knee unsure of which side History of appendectomy Family History Mother Thyroid disorder Malignant melanoma Alzheimer disease Father Pancreatic neoplasm Cancer Denies family history of Ovarian cancer Breast cancer Bleeding disorder Colorectal cancer Social History Smoking Status: Never smoker Second Hand Exposure: No; Do You Dip or Chew Tobacco: No; Hx Alcohol Use: Yes Alcohol type: beer, wine and hard liquor Alcohol Intake Frequency: Monthly or Less Hx Substance Use: No Preferred Language: Dutch Communication Ability: Effective Communication Ability Comment: bengali Visual Impairment: No Limitations Hearing Ability: Normal Ground 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: No Beliefs That Will Affect Care: None marital status: Current Living Situation: Spouse current occupational status: retired Feels Safe at Home: Yes Childhood Exposure to Second-Hand Smoke: No Dental Care, Regularly: Yes Physical Activity Frequency: Daily Seatbelt Use: always Sunscreen Use: Yes Assistive Devices: Glasses Allergies Allergies Allergy/AdvReac Type Severity Reaction Status Date / Time lidocaine Allergy Unknown FAINT Verified 06/02/24 10:35 procaine [From Novocain] Allergy Unknown syncope Verified 06/02/24 10:35 Home Meds Home Medications Medication Instructions Recorded Confirmed calcium 315 mg (as 1 tab PO QAM 09/13/19 09/27/24 citrate)-vitamin D3 6.25 mcg (250 unit) tablet glucosamine sulfate 500 mg capsule 500 mg PO Q OTHER DAY 09/13/19 09/27/24 cholecalciferol (vitamin D3) 25 2,000 unit PO QAM 07/16/21 09/27/24 mcg (1,000 unit) capsule multivitamin 1 tab PO Q OTHER DAY 10/30/22 06/02/24 amlodipine 5 mg tablet 5 mg PO HS 09/27/24 09/27/24 telmisartan 80 mg tablet 80 mg PO DAILY 09/27/24 09/27/24 Previous Rx's Medication Instructions Recorded blood-glucose meter (OneTouch #1 ea 04/16/21 Verio Flex Start kit) alendronate 70 mg tablet (Fosamax) 70 mg PO WK #12 tabs 11/03/23 famotidine 20 mg tablet (Acid 20 mg PO QAM #90 tabs 01/20/24 [employer] (famotidine)) metformin 500 mg tablet 500 mg PO BID #20 tabs 03/04/24 blood sugar diagnostic (OneTouch #200 ea 03/23/24 Verio test strips) rosuvastatin 10 mg tablet 10 mg PO DAILY 90 days #90 tabs 05/20/24 pantoprazole 20 mg tablet,delayed 20 mg PO DAILY 3 months #90 tabs 06/02/24 release flash glucose sensor (FreeStyle #2 ea 08/01/24 Meaghan 2 Sensor kit) lancets 33 gauge #200 ea 08/25/24 Results & Data (ED) Vital Signs Vital Signs - 24 hr 09/26/24 22:06 09/26/24 22:30 09/26/24 22:31 Temperature 36.5 C Temperature Source Temporal Artery Scan Pulse Rate - Lying Pulse Rate - Sitting Pulse Rate - Standing Pulse Rate 87 71 Pulse Rate [Apical] Pulse Rate from SpO2 Sensor Respiratory Rate 16 Respiratory Effort / Characteristics Non-Labored Respiratory Depth Normal Respiratory Pattern Regular Blood Pressure - Lying Blood Pressure - Sitting Blood Pressure- Standing Blood Pressure 179/89 H 153/71 H Blood Pressure [Left Arm] Blood Pressure Mean 119 104 Blood Pressure Mean [Left Arm] Pulse Oximetry 98 Oxygen Delivery Method Room Air Sepsis Recent Fever Within 48 Hours No Sepsis New/Unexplained Change in Mental Status N/A Sepsis Action Taken by Nursing No Action Required 09/26/24 22:42 09/26/24 22:42 09/26/24 22:47 Temperature Temperature Source Pulse Rate - Lying Pulse Rate - Sitting Pulse Rate - Standing Pulse Rate 79 Pulse Rate [Apical] 79 Pulse Rate from SpO2 Sensor 81 Respiratory Rate 20 20 Respiratory Effort / Characteristics Non-Labored Spontaneous Respiratory Depth Normal Respiratory Pattern Regular Blood Pressure - Lying Blood Pressure - Sitting Blood Pressure- Standing Blood Pressure Blood Pressure [Left Arm] 153/71 H Blood Pressure Mean Blood Pressure Mean [Left Arm] 98 Pulse Oximetry 99 97 98 Oxygen Delivery Method Room Air Room Air Sepsis Recent Fever Within 48 Hours Sepsis New/Unexplained Change in Mental Status Sepsis Action Taken by Nursing 09/26/24 22:51 09/26/24 23:00 09/26/24 23:00 Temperature Temperature Source Pulse Rate - Lying Pulse Rate - Sitting Pulse Rate - Standing Pulse Rate 72 74 Pulse Rate [Apical] Pulse Rate from SpO2 Sensor 73 74 Respiratory Rate 16 16 Respiratory Effort / Characteristics Respiratory Depth Respiratory Pattern Blood Pressure - Lying Blood Pressure - Sitting Blood Pressure- Standing Blood Pressure 161/72 H Blood Pressure [Left Arm] Blood Pressure Mean 88 Blood Pressure Mean [Left Arm] Pulse Oximetry 98 97 Oxygen Delivery Method Sepsis Recent Fever Within 48 Hours Sepsis New/Unexplained Change in Mental Status Sepsis Action Taken by Nursing 09/26/24 23:16 09/26/24 23:20 09/26/24 23:30 Temperature Temperature Source Pulse Rate - Lying Pulse Rate - Sitting Pulse Rate - Standing Pulse Rate Pulse Rate [Apical] Pulse Rate from SpO2 Sensor Respiratory Rate Respiratory Effort / Characteristics Respiratory Depth Respiratory Pattern Blood Pressure - Lying Blood Pressure - Sitting Blood Pressure- Standing Blood Pressure 174/65 H 154/76 H 161/76 H Blood Pressure [Left Arm] Blood Pressure Mean 90 99 110 Blood Pressure Mean [Left Arm] Pulse Oximetry Oxygen Delivery Method Sepsis Recent Fever Within 48 Hours Sepsis New/Unexplained Change in Mental Status Sepsis Action Taken by Nursing 09/26/24 23:45 09/26/24 23:54 09/27/24 00:00 Temperature Temperature Source Pulse Rate - Lying Pulse Rate - Sitting Pulse Rate - Standing Pulse Rate 65 Pulse Rate [Apical] Pulse Rate from SpO2 Sensor 64 Respiratory Rate 17 Respiratory Effort / Characteristics Respiratory Depth Respiratory Pattern Blood Pressure - Lying Blood Pressure - Sitting Blood Pressure- Standing Blood Pressure 152/75 H 146/70 H Blood Pressure [Left Arm] Blood Pressure Mean 102 110 Blood Pressure Mean [Left Arm] Pulse Oximetry 96 Oxygen Delivery Method Sepsis Recent Fever Within 48 Hours Sepsis New/Unexplained Change in Mental Status Sepsis Action Taken by Nursing 09/27/24 00:03 09/27/24 00:04 09/27/24 00:15 Temperature Temperature Source Pulse Rate - Lying Pulse Rate - Sitting Pulse Rate - Standing Pulse Rate 64 Pulse Rate [Apical] 66 Pulse Rate from SpO2 Sensor 64 Respiratory Rate 16 20 Respiratory Effort / Characteristics Non-Labored Spontaneous Respiratory Depth Normal Respiratory Pattern Regular Blood Pressure - Lying Blood Pressure - Sitting Blood Pressure- Standing Blood Pressure 137/117 H Blood Pressure [Left Arm] 146/70 H Blood Pressure Mean 123 Blood Pressure Mean [Left Arm] 95 Pulse Oximetry 96 96 Oxygen Delivery Method Room Air Sepsis Recent Fever Within 48 Hours Sepsis New/Unexplained Change in Mental Status Sepsis Action Taken by Nursing 09/27/24 00:15 09/27/24 00:24 09/27/24 00:30 Temperature Temperature Source Pulse Rate - Lying Pulse Rate - Sitting Pulse Rate - Standing Pulse Rate 76 66 66 Pulse Rate [Apical] Pulse Rate from SpO2 Sensor 77 66 67 Respiratory Rate 16 16 14 Respiratory Effort / Characteristics Respiratory Depth Respiratory Pattern Blood Pressure - Lying Blood Pressure - Sitting Blood Pressure- Standing Blood Pressure Blood Pressure [Left Arm] Blood Pressure Mean Blood Pressure Mean [Left Arm] Pulse Oximetry 98 98 98 Oxygen Delivery Method Sepsis Recent Fever Within 48 Hours Sepsis New/Unexplained Change in Mental Status Sepsis Action Taken by Nursing 09/27/24 00:30 09/27/24 00:30 09/27/24 00:30 Temperature Temperature Source Pulse Rate - Lying Pulse Rate - Sitting Pulse Rate - Standing Pulse Rate Pulse Rate [Apical] Pulse Rate from SpO2 Sensor Respiratory Rate Respiratory Effort / Characteristics Respiratory Depth Respiratory Pattern Blood Pressure - Lying Blood Pressure - Sitting Blood Pressure- Standing Blood Pressure 134/76 134/76 134/76 Blood Pressure [Left Arm] Blood Pressure Mean 95 95 95 Blood Pressure Mean [Left Arm] Pulse Oximetry Oxygen Delivery Method Sepsis Recent Fever Within 48 Hours Sepsis New/Unexplained Change in Mental Status Sepsis Action Taken by Nursing 09/27/24 00:30 09/27/24 00:45 09/27/24 00:51 Temperature Temperature Source Pulse Rate - Lying Pulse Rate - Sitting Pulse Rate - Standing Pulse Rate 70 68 Pulse Rate [Apical] Pulse Rate from SpO2 Sensor 70 66 Respiratory Rate 15 13 Respiratory Effort / Characteristics Respiratory Depth Respiratory Pattern Blood Pressure - Lying Blood Pressure - Sitting Blood Pressure- Standing Blood Pressure 134/76 Blood Pressure [Left Arm] Blood Pressure Mean 95 Blood Pressure Mean [Left Arm] Pulse Oximetry 94 93 Oxygen Delivery Method Sepsis Recent Fever Within 48 Hours Sepsis New/Unexplained Change in Mental Status Sepsis Action Taken by Nursing 09/27/24 00:54 09/27/24 01:00 09/27/24 01:03 Temperature Temperature Source Pulse Rate - Lying Pulse Rate - Sitting Pulse Rate - Standing Pulse Rate 66 66 Pulse Rate [Apical] Pulse Rate from SpO2 Sensor 67 67 Respiratory Rate 14 11 L Respiratory Effort / Characteristics Respiratory Depth Respiratory Pattern Blood Pressure - Lying Blood Pressure - Sitting Blood Pressure- Standing Blood Pressure 139/70 Blood Pressure [Left Arm] Blood Pressure Mean 119 Blood Pressure Mean [Left Arm] Pulse Oximetry 96 94 Oxygen Delivery Method Sepsis Recent Fever Within 48 Hours Sepsis New/Unexplained Change in Mental Status Sepsis Action Taken by Nursing 09/27/24 01:15 09/27/24 01:17 Temperature Temperature Source Pulse Rate - Lying 66 Pulse Rate - Sitting 83 Pulse Rate - Standing 92 H Pulse Rate Pulse Rate [Apical] Pulse Rate from SpO2 Sensor Respiratory Rate Respiratory Effort / Characteristics Respiratory Depth Respiratory Pattern Blood Pressure - Lying 130/72 Blood Pressure - Sitting 124/67 Blood Pressure- Standing 130/72 Blood Pressure 130/72 Blood Pressure [Left Arm] Blood Pressure Mean 87 Blood Pressure Mean [Left Arm] Pulse Oximetry Oxygen Delivery Method Sepsis Recent Fever Within 48 Hours Sepsis New/Unexplained Change in Mental Status Sepsis Action Taken by [facility] Medications Current Medication List: was personally reviewed by me Laboratory Data Attestation: I reviewed the patient's lab results. 09/26/24 22:40 09/26/24 22:40 Lab Results 09/26/24 09/27/24 Range/Units 22:40 01:23 WBC 7.65 (4.8-10.8) K/ul RBC 4.74 (4.20-5.40) M/uL Hgb 13.3 (12.0-16.0) g/dl Hct 40.8 (37.0-47.0) % MCV 86.1 (80.0-100.0) fL MCH 28.1 (25.0-34.0) pg MCHC 32.6 (32.0-36.0) g/dL RDW Std Deviation 42.0 (36.4-46.3) fL RDW Coeff of Omar 13.3 (11.5-14.5) % Plt Count 263 (130-400) K/uL MPV 10.0 (9.4-12.4) fL Immature Gran % (Auto) 0.3 % Neut % (Auto) 58.8 % Lymph % (Auto) 27.2 % Towns % (Auto) 7.3 % Eos % (Auto) 5.9 % Baso % (Auto) 0.5 % Neut # (Auto) 4.50 (1.40-6.50) K/uL Lymph # (Auto) 2.08 (1.20-3.40) K/uL Towns # (Auto) 0.56 (0.11-0.59) K/uL Eos # (Auto) 0.45 (0.00-0.50) K/uL Baso # (Auto) 0.04 (0.00-0.20) K/uL Immature Gran # (Auto) 0.02 (0.01-0.20) K/uL PT 10.5 (9.0-12.0) Seconds INR 1.0 (0.9-1.1) APTT 26 (21-31) Seconds PTT Ratio 1.0 Sodium 141 (136-145) mmol/L Potassium 3.6 (3.5-5.1) mmol/L Chloride 103 (98-107) mmol/L Carbon Dioxide 31 (21-32) mmol/L Anion Gap 7 (3-11) BUN 16 (6-23) mg/dl Creatinine 0.58 L (0.6-1.2) mg/dl Est Cr Clr Drug Dosing 69.0 ml/min eGFR 92.57 BUN/Creatinine Ratio 27.6 H (10-20) Glucose 125 H (70-99(Fasting)) mg/dl POC Glucose 150 H (70-99) mg/dl Calcium 9.8 (8.6-10.3) mg/dl Magnesium 2.0 (1.7-2.4) mg/dl Total Bilirubin 0.3 (0.2-1.0) mg/dl AST 21 (13-39) U/L ALT 17 (7-52) U/L Alkaline Phosphatase 77 (34-104) U/L Troponin I High Sens 4.8 (0-14) pg/ml Total Protein 7.4 (6.0-8.3) gm/dl Albumin 5.0 (3.4-5.0) gm/dl Globulin 2.4 L (2.5-4.0) gm/dl Albumin/Globulin Ratio 2.1 H (0.9-2) Administered Medications Discontinued Medications Ioversol (Optiray 320 125ml) 117 ml IV ONCE ONE Stop: 09/26/24 23:07 Last Admin: 09/26/24 23:06 Dose: 117 ml Documented By: SARA Imaging Data Attestation: I personally reviewed and interpreted this imaging study as follows: My Impression: 1 view chest x-ray was obtained in the emergency department. My interpretation is no free air or definite infiltrate, final report pending. CT the brain was obtained in the emergency department. My interpretation is no intracranial hemorrhage or mass effect, final report below. Radiologist's Impression: Head CT 09/26/24 22:42 Exam(s): CT HEAD Without Contrast EXAM: CT Head Without Intravenous Contrast CLINICAL HISTORY: Reason for exam: neuro deficit, acute stroke suspected. TECHNIQUE: Axial computed tomography images of the head/brain without intravenous contrast. CTDI is 16.61 mGy and DLP is 950.62 mGy-cm. Automated exposure control was utilized for the study. A dose lowering technique was utilized adhering to the principles of ALARA. COMPARISON: Prior head CT from November 20, 2011. FINDINGS: Brain: Unremarkable. No hemorrhage. No significant white matter disease. No edema. Ventricles: Unremarkable. No ventriculomegaly. Bones/joints: Unremarkable. No acute fracture. Soft tissues: Unremarkable. Sinuses: Chronic right sphenoid, left frontal and ethmoid sinusitis. No acute sinusitis. Mastoid air cells: Unremarkable as visualized. No mastoid effusion. IMPRESSION: No evidence of acute intracranial pathology. Electronically signed by: Honey Gonzalez MD 09/27/24 01:12 AM Head CTA 09/26/24 22:42 Exam(s): CTA HEAD With Contrast IV Amt: 117 ML OPTIRAY 320 EXAM: CT Angiography Head With Intravenous Contrast CLINICAL HISTORY: Reason for exam: neuro deficit, acute stroke suspected. TECHNIQUE: Axial computed tomographic angiography images of the head with intravenous contrast. CTDI is 36.79 mGy and DLP is 950.62 mGy-cm. Automated exposure control was utilized for the study. A dose lowering technique was utilized adhering to the principles of ALARA. MIP reconstructed images were created and reviewed. CONTRAST: Patient received 117 ML OPTIRAY 320 of IV contrast COMPARISON: Prior CT angiogram of the head from September 30, 2017. FINDINGS: The dural venous sinuses are patent. Right internal carotid artery: No acute findings. Intracranial segment is patent with no significant stenosis. No aneurysm. Right anterior cerebral artery: Unremarkable. No occlusion or significant stenosis. No aneurysm. Right middle cerebral artery: Unremarkable. No occlusion or significant stenosis. No aneurysm. Right posterior cerebral artery: Unremarkable. No occlusion or significant stenosis. No aneurysm. Right vertebral artery: Unremarkable as visualized. Left internal carotid artery: No acute findings. Intracranial segment is patent with no significant stenosis. No aneurysm. Left anterior cerebral artery: Unremarkable. No occlusion or significant stenosis. No aneurysm. Left middle cerebral artery: Unremarkable. No occlusion or significant stenosis. No aneurysm. Left posterior cerebral artery: Unremarkable. No occlusion or significant stenosis. No aneurysm. Left vertebral artery: Unremarkable as visualized. Basilar artery: Unremarkable. No occlusion or significant stenosis. No aneurysm. IMPRESSION: Negative CT angiogram of the head. Electronically signed by: Honey Gonzalez MD 09/27/24 01:05 AM Neck CTA 09/26/24 22:42 Exam(s): CTA NECK With Contrast IV Amt: 117 ML OPTIRAY 320 EXAM: CT Angiography Neck With Intravenous Contrast CLINICAL HISTORY: Reason for exam: neuro deficit, acute stroke suspected. TECHNIQUE: Routine carotid CT angiography protocol was performed with intravenous contrast. NASCET criteria using the distal ICAs for comparison were used for evaluation of stenoses. CTDI is 36.79 mGy and DLP is 950.62 mGy-cm. Automated exposure control was utilized for the study. A dose lowering technique was utilized adhering to the principles of ALARA. MIP reconstructed images were created and reviewed. CONTRAST: Patient received 117 ML OPTIRAY 320 of IV contrast COMPARISON: Prior CT angiogram of the neck from September 30, 2017. FINDINGS: VASCULATURE: Right common carotid artery: Unremarkable. No occlusion or significant stenosis. No dissection. Right internal carotid artery: Unremarkable. Extracranial segment is patent with no occlusion or significant stenosis. No dissection. Right external carotid artery: Unremarkable. No occlusion. Right vertebral artery: Unremarkable. No occlusion or significant stenosis. No dissection. Left common carotid artery: Unremarkable. No occlusion or significant stenosis. No dissection. Left internal carotid artery: Unremarkable. Extracranial segment is patent with no occlusion or significant stenosis. No dissection. Left external carotid artery: Unremarkable. No occlusion. Left vertebral artery: Unremarkable. No occlusion or significant stenosis. No dissection. NECK: Bones/joints: Unremarkable. No acute fracture. Soft tissues: Unremarkable. Lung apices: Clear. CAROTID STENOSIS REFERENCE USING NASCET CRITERIA: % ICA stenosis = (1 - narrowest ICA diameter/diameter of distal cervical ICA) x 100. Mild - <50% stenosis. Moderate - 50-69% stenosis. Severe - 70-94% stenosis. Near occlusion - 95-99% stenosis. Occluded - 100% stenosis. IMPRESSION: Negative CTA neck. Electronically signed by: Honey Gonzalez MD 09/27/24 01:17 AM Discharge Plan Visit Data Chief Complaint: Dizziness Stated Complaint: HIGH BP, DIZZY, NAUSEA, ED Provider: Simba Brothers Discharge Problem: Dizziness, Hypertension, Ataxia, Vertigo Patient Disposition: Being Evaluated by Hospitalist Forms Stand Alone Forms: My [facility] Prescriptions Prescriptions: No Action (DME) blood-glucose meter [OneTouch Verio Flex Start] Kit See Rx Instructions .ROUTE .MEDSUPPLY Qty: 1 0RF Rx Instructions: TEST ONCE DAILY alendronate [Fosamax] 70 mg tablet 70 mg PO WK Qty: 12 3RF Rx Instructions: wednesdays metformin 500 mg tablet 500 mg PO BID Qty: 20 0RF Rx Instructions: once daily with lunch (DME) OneTouch Verio test strips Strip See Rx Instructions .ROUTE .MEDSUPPLY Qty: 200 3RF Rx Instructions: TEST ONCE DAILY (DME) FreeStyle Meaghan 2 Sensor Kit See Rx Instructions .Route Qty: 2 5RF Rx Instructions: Apply one sensor every 14 days to monitor glucose continuously. (DME) lancets 33 gauge misc See Rx Instructions .ROUTE .MEDSUPPLY Qty: 200 3RF Rx Instructions: TEST ONCE DAILY calcium citrate-vitamin D3 315 mg- 250 unit tablet 1 tab PO QAM glucosamine sulfate 500 mg capsule 500 mg PO Q OTHER DAY Rx Instructions: pt states that she takes medication every other day cholecalciferol (vitamin D3) 25 mcg (1,000 unit) capsule 2,000 unit PO QAM famotidine [Acid [employer] (famotidine)] 20 mg tablet 20 mg PO QAM Qty: 90 3RF pantoprazole 20 mg tablet,delayed release (DR/EC) 20 mg PO DAILY 90 Days Qty: 90 1RF rosuvastatin 10 mg tablet 10 mg PO DAILY 90 Days Qty: 90 3RF multivitamin Tablet 1 tab PO Q OTHER DAY Rx Instructions: pt states that she takes medication every other day amlodipine 5 mg tablet 5 mg PO HS telmisartan 80 mg tablet 80 mg PO DAILY Referrals Referrals: Simba Ray MD [Primary Care Provider] - Discharge Problem: Hypertension Qualifiers: Hypertension type: unspecified Qualified Code(s): I10 - Essential (primary) hypertension
[2024-09-26 23:01] LABS: Basophils # (auto) 0.04 K/uL (0.00-0.20); Basophils % (auto) 0.5 %; Eosinophils # (auto) 0.45 K/uL (0.00-0.50); Eosinophils % (auto) 5.9 %; Hematocrit (blood only) 40.8 % (37.0-47.0); Hemoglobin 13.3 g/dl (12.0-16.0); Immature Granulocytes # (auto) 0.02 K/uL (0.01-0.20); Immature Granulocytes % (auto) 0.3 %; Lymphocytes # (auto) 2.08 K/uL (1.20-3.40); Lymphocytes % (auto) 27.2 %; Mean Corpuscular Hemoglobin 28.1 pg (25.0-34.0); Mean Corpuscular Hgb Conc 32.6 g/dL (32.0-36.0); Mean Corpuscular Volume 86.1 fL (80.0-100.0); Monocytes # (auto) 0.56 K/uL (0.11-0.59); Monocytes % (auto) 7.3 %; Neutrophils % (auto) 58.8 %; Platelet Count 263 K/uL (130-400); RDW Coefficient of Variation 13.3 % (11.5-14.5); Red Blood Count 4.74 M/uL (4.20-5.40); White Blood Count 7.65 K/ul (4.8-10.8)
[2024-09-26] MEDS: OPTIRAY 320 125ml IV ONE (23:06)
[2024-09-26 23:10] LABS: Albumin Globulin Ratio 2.1 (0.9-2); BUN Creatinine Ratio 27.6 (10-20); Bilirubin,Total 0.3 mg/dl (0.2-1.0); Calcium 9.8 mg/dl (8.6-10.3); Globulin 2.4 gm/dl (2.5-4.0); Potassium 3.6 mmol/L (3.5-5.1); Total Protein 7.4 gm/dl (6.0-8.3)
[2024-09-26 23:16] LABS: Troponin I High Sensitivity 4.8 pg/ml (0-14)
[2024-09-26 23:31] LABS: Partial Thromboplastin Time 26 Seconds (21-31); Prothrombin Time 10.5 Seconds (9.0-12.0)
--- NOTE | 2024-09-27 01:06 | CT Scan Report ---
Exam(s): CTA HEAD With Contrast IV Amt: 117 ML OPTIRAY 320 EXAM: CT Angiography Head With Intravenous Contrast CLINICAL HISTORY: Reason for exam: neuro deficit, acute stroke suspected. TECHNIQUE: Axial computed tomographic angiography images of the head with intravenous contrast. CTDI is 36.79 mGy and DLP is 950.62 mGy-cm. Automated exposure control was utilized for the study. A dose lowering technique was utilized adhering to the principles of ALARA. MIP reconstructed images were created and reviewed. CONTRAST: Patient received 117 ML OPTIRAY 320 of IV contrast COMPARISON: Prior CT angiogram of the head from September 30, 2017. FINDINGS: The dural venous sinuses are patent. Right internal carotid artery: No acute findings. Intracranial segment is patent with no significant stenosis. No aneurysm. Right anterior cerebral artery: Unremarkable. No occlusion or significant stenosis. No aneurysm. Right middle cerebral artery: Unremarkable. No occlusion or significant stenosis. No aneurysm. Right posterior cerebral artery: Unremarkable. No occlusion or significant stenosis. No aneurysm. Right vertebral artery: Unremarkable as visualized. Left internal carotid artery: No acute findings. Intracranial segment is patent with no significant stenosis. No aneurysm. Left anterior cerebral artery: Unremarkable. No occlusion or significant stenosis. No aneurysm. Left middle cerebral artery: Unremarkable. No occlusion or significant stenosis. No aneurysm. Left posterior cerebral artery: Unremarkable. No occlusion or significant stenosis. No aneurysm. Left vertebral artery: Unremarkable as visualized. Basilar artery: Unremarkable. No occlusion or significant stenosis. No aneurysm. IMPRESSION: Negative CT angiogram of the head. Electronically signed by: Honey Gonzalez MD 09/27/24 01:05 AM
--- NOTE | 2024-09-27 01:13 | CT Scan Report ---
Exam(s): CT HEAD Without Contrast EXAM: CT Head Without Intravenous Contrast CLINICAL HISTORY: Reason for exam: neuro deficit, acute stroke suspected. TECHNIQUE: Axial computed tomography images of the head/brain without intravenous contrast. CTDI is 16.61 mGy and DLP is 950.62 mGy-cm. Automated exposure control was utilized for the study. A dose lowering technique was utilized adhering to the principles of ALARA. COMPARISON: Prior head CT from November 20, 2011. FINDINGS: Brain: Unremarkable. No hemorrhage. No significant white matter disease. No edema. Ventricles: Unremarkable. No ventriculomegaly. Bones/joints: Unremarkable. No acute fracture. Soft tissues: Unremarkable. Sinuses: Chronic right sphenoid, left frontal and ethmoid sinusitis. No acute sinusitis. Mastoid air cells: Unremarkable as visualized. No mastoid effusion. IMPRESSION: No evidence of acute intracranial pathology. Electronically signed by: Honey Gonzalez MD 09/27/24 01:12 AM
--- NOTE | 2024-09-27 01:18 | CT Scan Report ---
Exam(s): CTA NECK With Contrast IV Amt: 117 ML OPTIRAY 320 EXAM: CT Angiography Neck With Intravenous Contrast CLINICAL HISTORY: Reason for exam: neuro deficit, acute stroke suspected. TECHNIQUE: Routine carotid CT angiography protocol was performed with intravenous contrast. NASCET criteria using the distal ICAs for comparison were used for evaluation of stenoses. CTDI is 36.79 mGy and DLP is 950.62 mGy-cm. Automated exposure control was utilized for the study. A dose lowering technique was utilized adhering to the principles of ALARA. MIP reconstructed images were created and reviewed. CONTRAST: Patient received 117 ML OPTIRAY 320 of IV contrast COMPARISON: Prior CT angiogram of the neck from September 30, 2017. FINDINGS: VASCULATURE: Right common carotid artery: Unremarkable. No occlusion or significant stenosis. No dissection. Right internal carotid artery: Unremarkable. Extracranial segment is patent with no occlusion or significant stenosis. No dissection. Right external carotid artery: Unremarkable. No occlusion. Right vertebral artery: Unremarkable. No occlusion or significant stenosis. No dissection. Left common carotid artery: Unremarkable. No occlusion or significant stenosis. No dissection. Left internal carotid artery: Unremarkable. Extracranial segment is patent with no occlusion or significant stenosis. No dissection. Left external carotid artery: Unremarkable. No occlusion. Left vertebral artery: Unremarkable. No occlusion or significant stenosis. No dissection. NECK: Bones/joints: Unremarkable. No acute fracture. Soft tissues: Unremarkable. Lung apices: Clear. CAROTID STENOSIS REFERENCE USING NASCET CRITERIA: % ICA stenosis = (1 - narrowest ICA diameter/diameter of distal cervical ICA) x 100. Mild - <50% stenosis. Moderate - 50-69% stenosis. Severe - 70-94% stenosis. Near occlusion - 95-99% stenosis. Occluded - 100% stenosis. IMPRESSION: Negative CTA neck. Electronically signed by: Honey Gonzalez MD 09/27/24 01:17 AM
--- NOTE | 2024-09-27 02:13 | XRay Report ---
Exam(s): XR CXR 1 VIEW EXAM: XR Chest, 1 View CLINICAL HISTORY: Reason for exam: neuro deficit, acute stroke suspected. TECHNIQUE: Frontal view of the chest. COMPARISON: Prior chest x-ray from January 12, 2023. FINDINGS: Lungs: Increased interstitial opacities in the lower lobes. No consolidation. There is hyperinflation lungs and flattening the diaphragms. Pleural space: Unremarkable. No pneumothorax. Heart: Unremarkable. No cardiomegaly. Mediastinum: Unremarkable. Normal mediastinal contour. Bones/joints: Unremarkable. No acute fracture. IMPRESSION: No evidence of acute cardiopulmonary process. Electronically signed by: Honey Gonzalez MD 09/27/24 02:12 AM
[2024-09-27] MEDS: MECLIZINE HCL 25 MG TAB PO STA (02:28)
--- NOTE | 2024-09-27 03:07 | History & Physical Report ---
Date of Service September 27, 2024 Assessment & Plan (1) Vertigo: Plan: - No signs of acute stroke-> imagining negative, exam without focal neurologic deficit - Orthostatic vital signs negative - Was given 25mg meclizine in ED, continue 12.5mg q6h prn - monitor of telemetry for arrhythmia - UA pending - PT/OT ordered, fall precautions - neurology consulted (2) Ataxia: Plan: plan as per above (3) Hypertension: Plan: - elevated blood pressures upon presentation 170s/80s-> no signs of end organ damage and now normotensive without any acute interventions - continue 5mg amlodipine, 80mg telmisartan - if blood pressures elevated moving forward consider adjustment of home antihypertensives Plan Chronic Stable Conditions: DM2: last hemoglobin a1c= 6.3 04/2024- well controlled. Hold metformin, SSI ACHS while inpatient GERD: continue famotidine, pantoprazole HLD: continue statin Diet: DM2 Code: Full VTE Prophylaxis: Lovenox Dispo: Med- Tele History of Present Illness Primary Care Provider: Simba Ray MD 79 year old female with a past medical history of DM2 and HTN presenting with concern for dizziness and elevated blood pressure. States that she drive back from daughter's home in [place] today. This evening she noted elevated blood pressures to 170s systolic. Also noted some dizziness, denies room spinning, more of a feeling of being off with the dizziness she felt that her balance was off. Her daughter, who is a physician, told her to take an extra dose of amlodipine this evening. Has had episodes of vertigo in the past- felt that th july episodes were different- more room spinning. Denies recent illness. At time of evaluation had just received a dose meclizine, still notes some dizziness. Positional-> worse when going from laying to sitting. Denies nausea/vomiting, chest pain, dyspnea. ED course significant for: CBC, CMP, trop wnl. EKG with NSR, no acute ischemic changes, no arrhythmia. CXR, Head CT, CTA Head/Neck all without acute pathology. Orthostatic vitals negative. S/p 25mg meclizine Allergies Allergy/AdvReac Type Severity Reaction Status Date / Time lidocaine Allergy Unknown FAINT Verified 06/02/24 10:35 procaine [From Novocain] Allergy Unknown syncope Verified 06/02/24 10:35 Home Medications Medication Instructions Recorded Confirmed Type calcium 315 mg (as 1 tab PO QAM 09/13/19 09/27/24 History citrate)-vitamin D3 6.25 mcg (250 unit) tablet glucosamine sulfate 500 mg capsule 500 mg PO Q OTHER DAY 09/13/19 09/27/24 History blood-glucose meter (OneTouch #1 ea 04/16/21 09/27/24 Rx Verio Flex Start kit) cholecalciferol (vitamin D3) 25 2,000 unit PO QAM 07/16/21 09/27/24 History mcg (1,000 unit) capsule multivitamin 1 tab PO Q OTHER DAY 10/30/22 06/02/24 History alendronate 70 mg tablet (Fosamax) 70 mg PO WK #12 tabs 11/03/23 09/27/24 Rx famotidine 20 mg tablet (Acid 20 mg PO QAM #90 tabs 01/20/24 09/27/24 Rx Marine Meteorologist (famotidine)) metformin 500 mg tablet 500 mg PO BID #20 tabs 03/04/24 09/27/24 Rx blood sugar diagnostic (OneTouch #200 ea 03/23/24 09/27/24 Rx Verio test strips) rosuvastatin 10 mg tablet 10 mg PO DAILY 90 days #90 tabs 05/20/24 09/27/24 Rx pantoprazole 20 mg tablet,delayed 20 mg PO DAILY 3 months #90 tabs 06/02/24 09/27/24 Rx release flash glucose sensor (FreeStyle #2 ea 08/01/24 09/27/24 Rx Meaghan 2 Sensor kit) lancets 33 gauge #200 ea 08/25/24 09/27/24 Rx amlodipine 2.5 mg tablet 7.5 mg (3 x 2.5 mg) PO DAILY #90 09/27/24 Rx tabs telmisartan 80 mg tablet 80 mg PO DAILY 09/27/24 09/27/24 History Past Med/Surg History Problem List (Updated 09/27/24 @ 13:53 by Aileen Mendenhall MD) Vertigo (Acute) Ataxia (Acute) Dizziness (Acute) Proteinuria due to type 2 diabetes mellitus Osteoarthritis Bilateral hand pain Colon cancer screening Encounter for pre-operative examination Vitamin D deficiency (Acute) Postmenopausal atrophic vaginitis (Acute) Neck pain (Acute) Laryngopharyngeal reflux (Acute) Headache (Acute) Lump in the groin Laryngitis Chronic rhinitis Neck pain Dehydration (Acute) Abdominal pain Fatigue Abnormal Pap smear of cervix Post-menopausal COVID-19 (Acute) Syncope and collapse (Acute) Hypokalemia Hypocalcemia Sinusitis History of COVID-19 Excessive cerumen in right ear canal History of ankle fracture (02/22/22) Left Ankle. displaced distal left fibular fracture and fracture of the posterior left malleolus without significant displacement Chronic headaches (Acute) Diabetes mellitus (Acute) pt reports "pre diabetic" Erosive osteoarthritis of hands, bilateral (Acute) Hypertension (Acute) Osteopenia (Acute) Solitary thyroid nodule (Acute) pt denies Vasovagal syncope (Acute) treated at [facility] x2 in the last 2 years - last episode 12/2022. treated at [facility] emergency room Medical History (Updated 09/27/24 @ 13:53 by Aileen Mendenhall MD) PFO (patent foramen ovale) History of COVID-19 01/12/23 - mild flu like symptoms. GERD (gastroesophageal reflux disease) Hiatal hernia Hyperlipidemia Voice hoarseness Surgical History History of esophagogastroduodenoscopy (EGD) S/P vein stripping History of open reduction and internal fixation (ORIF) procedure left ankle with hardware History of cryosurgery cervix (pt denies) Hx of tonsillectomy H/O colonoscopy 08/01, neg, due in 10 years H/O oral surgery S/P arthroscopy of knee unsure of which side History of appendectomy Family History Mother Thyroid disorder Malignant melanoma Alzheimer disease Father Pancreatic neoplasm Cancer Denies family history of Ovarian cancer Breast cancer Bleeding disorder Colorectal cancer Social History Smoking Status: Never smoker Second Hand Exposure: No; Do You Dip or Chew Tobacco: No; Hx Alcohol Use: No Hx Substance Use: No Preferred Language: Uzbek Communication Ability: Effective Communication Ability Comment: slovenian Visual Impairment: No Limitations Hearing Ability: Normal Gold Tooler Required: No Beliefs That Will Affect Care: None marital status: Current Living Situation: Spouse current occupational status: retired Feels Safe at Home: Yes Childhood Exposure to Second-Hand Smoke: No Dental Care, Regularly: Yes Physical Activity Frequency: Daily Seatbelt Use: always Sunscreen Use: Yes Assistive Devices: None Review of Systems Review of Systems: As per above Physical Exam Physical Exam: Constitutional: well-appearing, no acute distress HEENT: NCAT, no conjunctival injection CV: regular rhythm, no murmur appreciated, extremities well-perfused, no LE edema Resp: CTABL, no wheezes/rales/rhonchi appreciated, no increased work of breathing GI: soft, nondistended, nontender MSK: no gross deformities appreciated Skin: warm, dry, no rash appreciated Neuro: alert, oriented, no focal neurologic deficit appreciated. CN II-XII intact, strength 5/5 UE and LE B/L. Results & Data Results & Data Vital Signs (Past 12 Hours) Vital Signs Temp Pulse Pulse Resp BP BP Pulse Ox 09/27/24 02:21 67 09/27/24 02:00 72 20 154/92 H 98 09/27/24 01:15 130/72 09/27/24 01:03 66 11 L 94 09/27/24 01:00 139/70 09/27/24 00:54 66 14 96 09/27/24 00:51 68 13 93 09/27/24 00:45 70 15 94 09/27/24 00:30 134/76 09/27/24 00:30 134/76 09/27/24 00:30 134/76 09/27/24 00:30 134/76 09/27/24 00:30 66 14 98 09/27/24 00:24 66 16 98 09/27/24 00:15 76 16 98 09/27/24 00:15 137/117 H 09/27/24 00:04 66 20 146/70 H 96 09/27/24 00:03 64 16 96 09/27/24 00:00 146/70 H 09/26/24 23:54 65 17 96 09/26/24 23:45 152/75 H 09/26/24 23:30 161/76 H 09/26/24 23:20 154/76 H 09/26/24 23:16 174/65 H 09/26/24 23:00 74 16 97 09/26/24 23:00 161/72 H 09/26/24 22:51 72 16 98 09/26/24 22:47 79 20 153/71 H 98 09/26/24 22:42 79 20 97 09/26/24 22:42 99 09/26/24 22:31 71 09/26/24 22:30 153/71 H 09/26/24 22:06 36.5 C 87 16 179/89 H 98 O2 Del Method 09/27/24 02:21 09/27/24 02:00 Room Air 09/27/24 01:15 09/27/24 01:03 09/27/24 01:00 09/27/24 00:54 09/27/24 00:51 09/27/24 00:45 09/27/24 00:30 09/27/24 00:30 09/27/24 00:30 09/27/24 00:30 09/27/24 00:30 09/27/24 00:24 09/27/24 00:15 09/27/24 00:15 09/27/24 00:04 Room Air 09/27/24 00:03 09/27/24 00:00 09/26/24 23:54 09/26/24 23:45 09/26/24 23:30 09/26/24 23:20 09/26/24 23:16 09/26/24 23:00 09/26/24 23:00 09/26/24 22:51 09/26/24 22:47 Room Air 09/26/24 22:42 09/26/24 22:42 Room Air 09/26/24 22:31 09/26/24 22:30 09/26/24 22:06 Room Air Supervising Physician Co-Signing Physician Notes Attending addendum: I have physically seen this patient, have supervised the medical residents activities, and agree with the H&P unless as otherwise noted. Assessment and Plan: Vertigo- More likely peripheral issues etc. Normal and nonfocal neurologic examination CT scan head negative CTA head and neck negative Symptoms improved with meclizine 25 mg p.o. The patient will be admitted to telemetry for serial cardiac enzymes, serial EKG's, cardiac rhythm monitoring and a 2-D echocardiogram with Dopplers. Ataxia- Secondary to above Hypertension- Continue amlodipine 5 mg daily and telmisartan 80 mg daily Likely an element of stress of being in hospital Diabetes mellitus- Hold metformin Placed on Accu-Cheks EYES: Pupils round equal and react to light, extraocular movements full, no injection. SSI Resident Activity Tracking Resident Involvement: Resident Care Provided Care Provided: Adult Hospital Medicine (3) Hypertension Hypertension type: unspecified Qualified Code(s): I10 - Essential (primary) hypertension
[2024-09-27] MEDS ORDERED: GLUCAGON FOR INJ 1 MG VIAL SQ PRN (04:21)
[2024-09-27] MEDS ORDERED: MECLIZINE 12.5 MG TAB PO PRN (04:21)
[2024-09-27] MEDS ORDERED: CARBOHYDRATES FOR HYPOGLYCEMIA PO PRN (04:21)
[2024-09-27] MEDS ORDERED: GLUCOSE 40% GEL 15 GM TUBE PO PRN (04:21)
[2024-09-27] MEDS ORDERED: GLUCOSE 10 TAB/TUBE PO PRN (04:21)
[2024-09-27] MEDS ORDERED: DEXTROSE 50% 50 ML SYRINGE IV PRN (04:21)
[2024-09-27 04:42] LABS: Appearance Urine Clear (Clear); Bacteria Urine Automated None Seen (None Seen); Bilirubin Urine Negative (Negative); Blood Urine Negative (Negative); Cast Urine Automated 0-2 /lpf (0-2); Color Urine Yellow; Epithelial Cell Urine Auto 0-2 /hpf (0-2); Glucose Urine UA Negative (Negative); Ketones Urine Negative (Negative); Leukocyte Esterase Urine Negative (Negative); Nitrite Urine Negative (Negative); Protein Urine 1+ (Negative); RBC Urine Automated 0-2 /hpf (0-2); Specific Gravity Urine 1.043 (1.000-1.030); Urobilinogen Urine Negative (Negative); WBC Urine Automated 0-5 /hpf (0-5); pH Urine 6.5 (4.5-7.5)
[2024-09-27 06:46] LABS: Hematocrit (blood only) 37.6 % (37.0-47.0); Hemoglobin 12.5 g/dl (12.0-16.0); Mean Corpuscular Hemoglobin 28.7 pg (25.0-34.0); Mean Corpuscular Hgb Conc 33.2 g/dL (32.0-36.0); Mean Corpuscular Volume 86.2 fL (80.0-100.0); Mean Platelet Volume 10.1 fL (9.4-12.4); Platelet Count 266 K/uL (130-400); RDW Coefficient of Variation 13.4 % (11.5-14.5); RDW Standard Deviation 42.4 fL (36.4-46.3); Red Blood Count 4.36 M/uL (4.20-5.40); White Blood Count 9.73 K/ul (4.8-10.8)
[2024-09-27 06:55] LABS: BUN Creatinine Ratio 25.9 (10-20); Calcium 9.4 mg/dl (8.6-10.3); Creatinine Clr Calc Pharmacy 77.3 ml/min; Potassium 4.2 mmol/L (3.5-5.1)
[2024-09-27 07:16] LABS: iSTAT Creatinine 0.5 mg/dl (0.6-1.3); iSTAT Hemoglobin 13.3 g/dl (12.0-16.0); iSTAT Ionized Calcium 1.17 mmol/l (1.12-1.32); iSTAT Potassium 3.5 mmol/L (3.3-5.0)
[2024-09-27] MEDS: INSULIN ASPART PER UNIT CHARGE SC SCH (08:40)
[2024-09-27] MEDS: PANTOprazole 40 MG TAB PO SCH (08:52)
[2024-09-27] MEDS: CHOLECALCIFEROL 25 MCG (1000 UNITS) TAB PO SCH (08:52)
[2024-09-27] MEDS: FAMOTIDINE 20 MG TAB PO SCH (08:52)
[2024-09-27] MEDS: LOSARTAN POTASSIUM 50 MG TAB PO SCH (08:53)
[2024-09-27] MEDS: ROSUVASTATIN CALCIUM 10 MG TAB PO SCH (08:53)
[2024-09-27 09:29] LABS: Chol HDL Ratio 2.2 (0-5)
[2024-09-27 10:12] LABS: Estimated Average Glucose 126 mg/dl
[2024-09-27] MEDS: LORazepam 2 MG/1 ML VIAL IV STA (11:22)
[2024-09-27 12:34] VITALS: BP 117/73; RESP 18; TEMP 99; O2SAT 96
--- NOTE | 2024-09-27 12:36 | Magnetic Resonance Report ---
MRI OF THE BRAIN WITHOUT CONTRAST CLINICAL HISTORY: ataxia,r/o CVA COMPARISON STUDY: MRI of the brain November 21, 2011. Head CT and CTA of the head September 26, 2024. TECHNIQUE: Utilizing a 1.5 Loly magnet and dedicated coil, multiplanar, multiecho imaging of the bra in was performed without IV contrast. FINDINGS: There are no foci of restricted diffusion to suggest acute infarct. No acute intracranial h emorrhage, midline shift or mass effect is present. The ventricular system is unremarkable. Basal cis terns are patent. Flow-voids for the major intracranial vessels are present. There is no intracranial mass on this unenhanced exam. Calvarial signal is normal. There is mild sinus mucosal thickening. Th ere is no mastoid fluid. IMPRESSION: No acute intracranial findings. ACT 112: Negative or not required by law. Electronically signed by: Haseeb Jason M.D. 09/27/2024 12:35 PM
--- NOTE | 2024-09-27 13:10 | Discharge Summary ---
Discharge Summary Date of Service September 27, 2024 Principal Dx & Hospital Course #1 = Principal Diagnosis (1) Dizziness: Patient admitted with dizziness in the setting of elevated blood pressures. It is not vertigo. She has no nystagmus on examination and no other focal neurological deficits. Her symptoms are now completely resolved after improved control of her blood pressure. Blood pressures have been elevated over the last week with visiting her daughter, possibly increased sodium load with Thanksgiving dinner, and stress of preparing for her daughter's upcoming baby shower She had no significant events on telemetry-remained in normal sinus rhythm throughout Troponin was normal on arrival, electrolytes and magnesium normal, BUN and creatinine normal Echocardiogram with bubble study does show a PFO but otherwise with mild LVH and mild TR, preserved EF-PFO is of no significance in the setting CT angiogram of the head and neck negative, CT of the head with chronic appearing sinusitis but nothing acute or related to her symptoms Ordered MRI of the brain without contrast-negative for stroke I discussed her care with the on-call neurologist who did not think this was tax representative of a TIA and more likely related to dizziness related to uncontrolled hypertension Will increase amlodipine to 7.5 mg at bedtime for now and have her follow blood pressures at home She has a follow-up appoint with her PCP tomorrow I also discussed her care with her daughter, Dr. Vianney Koenig/global product manager, on the phone who also keep close tabs on her blood pressure control at home No need for aspirin and she is already on a statin at home of moderate intensity She worked with physical therapy and was independently ambulating the halls without difficulty. Stable for discharge to home with close follow-up of her blood pressure (2) Diabetes mellitus: Well-controlled, hemoglobin A1c here low at 6.0% Continue home metformin but hold for 1 more day due to contrast dye load (3) Hypertension: Blood pressures not well-controlled as above and could be related to increased salt load, stress Increase amlodipine to 7.5 mg at bedtime, continue home telmisartan Follow-up with PCP closely and follow blood pressures at home Encouraged low-sodium diet UA with 1+ protein-continue telmisartan and follow-up with PCP (4) PFO (patent foramen ovale): As above, no significance (5) Hyperlipidemia: Lipid panel excellent Continue home rosuvastatin 10 mg daily (6) GERD (gastroesophageal reflux disease): No acute issues, continue home PPI and famotidine Plan DVT prophylaxis-SQ Lovenox Disposition-stable for discharge to home Notes For Next Care Provider UA with 1+ protein-follow as an outpatient Needs close follow-up of blood pressures Medication Changes From Visit Increased amlodipine to 7.5 Mg p.o. at bedtime Admission HPI Per Admitting Provider 79 year old female with a past medical history of DM2 and HTN presenting with concern for dizziness and elevated blood pressure. States that she drive back from daughter's home in [place] today. This evening she noted elevated blood pressure s to 170s systolic. Also noted some dizziness, denies room spinning, more of a feeling of being off with the dizziness she felt that her balance was off. Her daughter, who is a physician, told her to take an extra dose of amlodipine this evening. Has had episodes of vertigo in the past- felt that these episodes were different- more room spinning. Denies recent illness. At time of evaluation had just received a dose meclizine, still notes some dizziness. Positional-> worse when going from laying to sitting. Denies nausea/vomiting, chest pain, dyspnea. ED course significant for: CBC, CMP, trop wnl. EKG with NSR, no acute ischemic changes, no arrhythmia. CXR, Head CT, CTA Head/Neck all without acute pathology. Orthostatic vitals negative. S/p 25mg meclizine Discharge Exam Constitutional WD/WN, vitals as above Eyes PERRL, conjunctivae normal, anicteric sclerae ENMT external ear and nose normal, oropharynx normal Neck trachea midline, no thyromegaly Respiratory normal respiratory effort, lungs clear to auscultation Cardiovascular RRR, no murmur, no edema Chest (Breasts) Chest: normal inspection of chest Gastrointestinal (Abdomen) normal bowel sounds, soft, nontender, no hepatosplenomegaly Musculoskeletal Extremities: extremities normal to inspection; no cyanosis and no clubbing Skin no rashes, warm and dry Neurologic PERRL, EOMI, accommodation nl, no face palsy, no dysarthria CN's II-XI intact bilaterally, deep tendon reflexes 2+ bilaterally, moves all extremities and awake; no focal motor deficits Speech / Cognition: normal speech Motor/Sensory: no tremor, normal movement, no pronator drift and no sensory deficit Gait: no ataxic gait Coordination: normal pgsone-st-muwe test, normal hiah-jp-qwze test, normal R omberg test and normal rapid alternating movements Psychiatric A+Ox3, euthymic affect Lymphatic no lymphedema Discharge Plan Discharge Items Patient Disposition: Home - Self-Care Reason For Visit: DIZZINESS Discharge Diagnosis: Dizziness related to elevated blood pressure Condition on Discharge: Good Activity: Resume your previous activity Non-emergency contact: Primary Care Provider Call non-emergency contact if: you have any medication questions and your symptoms worsen Follow-up/Referrals: Simba Ray MD [Primary Care Provider] - 10/04/24 1:30 pm () Diet: Carb Consistent or DM2 and Low Sodium (2gm) Addtl Attending Provider Instructions: You were admitted with dizziness. You had a workup which was negative for stroke or cardiac issues. These symptoms may have been related to your elevated blood pressures. Please continue on the increased dose of amlodipine 7.5mg daily and follow up with your PCP/Dr. Ray tomorrow as scheduled. Please continue to check your blood pressures 1-2 times per day and keep a record for your doctor. It was a pleasure taking care of you! -Aileen Mendenhall M.D. Pending Studies at Discharge: No Stand-Alone Forms: [facility] Medications and DC Order Prescriptions: New amlodipine 2.5 mg tablet 7.5 mg PO DAILY Qty: 90 0RF Continued (DME) blood-glucose meter [OneTouch Verio Flex Start] Kit See Rx Instructions .ROUTE .MEDSUPPLY Qty: 1 0RF Rx Instructions: TEST ONCE DAILY alendronate [Fosamax] 70 mg tablet 70 mg PO WK Qty: 12 3RF Rx Instructions: wednesdays (DME) OneTouch Verio test strips Strip See Rx Instructions .ROUTE .MEDSUPPLY Qty: 200 3RF Rx Instructions: TEST ONCE DAILY (DME) FreeStyle Meaghan 2 Sensor Kit See Rx Instructions .Route Qty: 2 5RF Rx Instructions: Apply one sensor every 14 days to monitor glucose continuously. (DME) lancets 33 gauge misc See Rx Instructions .ROUTE .MEDSUPPLY Qty: 200 3RF Rx Instructions: TEST ONCE DAILY calcium citrate-vitamin D3 315 mg- 250 unit tablet 1 tab PO QAM glucosamine sulfate 500 mg capsule 500 mg PO Q OTHER DAY Rx Instructions: pt states that she takes medication every other day cholecalciferol (vitamin D3) 25 mcg (1,000 unit) capsule 2,000 unit PO QAM famotidine [Acid Fisher Diver Net (famotidine)] 20 mg tablet 20 mg PO QAM Qty: 90 3RF pantoprazole 20 mg tablet,delayed release (DR/EC) 20 mg PO DAILY 90 Days Qty: 90 1RF rosuvastatin 10 mg tablet 10 mg PO DAILY 90 Days Qty: 90 3RF multivitamin Tablet 1 tab PO Q OTHER DAY Rx Instructions: pt states that she takes medication every other day telmisartan 80 mg tablet 80 mg PO DAILY Held metformin 500 mg tablet 500 mg PO BID Qty: 20 0RF Hold Instructions: Resume on 09/28/24. Rx Instructions: once daily with lunch Discontinued amlodipine 5 mg tablet 5 mg PO HS Discharge Orders: Discharge Order (Routine); Ordered 09/27/24 Ordered By: Aileen Mendenhall Admission Data Admit Date/Time: 09/27/24 02:45 Attending Provider: Aileen Mendenhall Admit Provider: Chiquis Mtz Primary Care Provider: Simba Ray Other Interventions: Discharge Summary Assessment (RN) Last Done: 09/27/24 13:51 Hospital Stay Data Diagnostic Imagining Performed 09/26/24 22:42 CT angio head w con Stat CT angio neck with con Stat CT head/brain wo con Stat 09/27/24 08:24 MRI Brain [MR brain wo con] Stat Echocardiogram with bubble study Discharge Instructions Given to Patient (Per Discharging Provider) You were admitted with dizziness. You had a workup which was negative for stroke or cardiac issues. These symptoms may have been related to your elevated blood pressures. Please continue on the increased dose of amlodipine 7.5mg daily and follow up with your PCP/Dr. Ray tomorrow as scheduled. Please continue to check your blood pressures 1-2 times per day and keep a record for your doctor. It was a pleasure taking care of you! -Aileen Mendenhall M.D. 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
--- NOTE | 2024-09-27 13:19 | XCELERA ---
[id number] \\[id number]
--- NOTE | 2024-09-27 14:01 | Electrocardiogram Report ---
Test Reason : Blood Pressure : */* mmHG Vent. Rate : 72 BPM Atrial Rate : 72 BPM P-R Int : 156 ms QRS Dur : 82 ms QT Int : 388 ms P-R-T Axes : 83 73 63 degrees QTcB Int : 424 ms Normal sinus rhythm Nonspecific ST abnormality Abnormal ECG When compared with ECG of 12-Jan-2023 12:29, No significant change was found Confirmed by Simba Alcantar ([id number]) on 09/27/2024 2:00:39 PM Referred By: REFERRED SELF Confirmed By: Simba Alcantar
[2024-09-27 15:15] VITALS: PULSE 71
[2024-09-27] MEDS ORDERED: ENOXAPARIN INJ 40 MG/0.4 ML SYR SQ SCH (17:45)
[2024-09-27] MEDS ORDERED: amLODIPine BESYLATE 5 MG TAB PO SCH (21:00)
--- NOTE | 2024-09-27 21:45 | Billing Data ---
Date of Service September 27, 2024 Coding Level of Care Code 09435 INT INP/OBS CARE
--- OUTSIDE RECORDS SUMMARY | 2024-09-28 03:28 | External Medical Summary | Continuity of Care Document ---
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 Name Role Phone ProSimba Primary Care Physician [phone] Encounter [facility] [id number] Date(s): 07/11/24 - 07/11/24 [facility] [address] [phone] Encounter Diagnosis Contact dermatitis(Discharge Diagnosis) - 07/11/24 Discharge Disposition: Home or Self Care Attending Physician: MD Colindres Sara B Referring Physician: MD Colindres Sara B Allergies, Adverse Reactions, Alerts Substance Criticality Severity Reaction Reaction Severity Status Novocain "passed out" Active Allergy Not found in Search 1, 2 ethilon suture Active 1ETHILON SUTURES 2novacaine: "passed out after it was used in my teen years" Assessment and Plan Extracted from: Title:Dermatology Office Visit Note Author:Yvonne aguilar MD, Sara B Date:07/11/24 1.Contact dermatitis Acute. Discussed with patient. We discussed saying topical because of her diabetes if possible. I gave her a prescription forbetamethasone dipropionate cream to use twice a day. Discussed Benadryl at night before bed. Also discussed washing everything that may have come into contact with the oils of the poison denisa. She does not have anyanimals that have been exposed. If not helpful she will let me know. Risks and benefits discussed. Prescription sent. Medications alendronate 70 mg oral tablet Start: 02/18/23 1:55:00 PM EDT, 12 unknown unit, TAKE 1 TABLET BY MOUTH ONCE WEEKLY DIRECTED Start Date: 02/18/23 Status: Ordered amlodipine Start: 07/03/11 3:36:00 PM EDT, 5 mg =, PO, Daily, Note to Pharmacy: 2 tabs daily Start Date: 07/03/11 Status: Ordered betamethasone dipropionate 0.05% topical cream Start: 07/11/24 2:57:00 PM EDT, 1 appl, topical, bid, Disp# 50 g, Refills: 1, To rash BID, Pharmacy:[id number] Start Date: 07/11/24 Status: Ordered calcium (as carbonate) 600 mg oral tablet Start: 07/03/11 3:39:00 PM EDT, 2 tab, PO, Daily Start Date: 07/03/11 Status: Ordered famotidine Start: 04/26/20 2:04:00 PM EDT, 10 mg =, PO, Daily, PRN: abdominal bloating - gas pain Start Date: 04/26/20 Status: Ordered glucosamine 500 mg oral tablet Start: 07/03/11 3:38:00 PM EDT, 1 tab, PO, Daily Start Date: 07/03/11 Status: Ordered metFORMIN 500 mg oral tablet TAKE 1 TABLET BY MOUTH EVERY DAY WITH LUNCH Start Date: 12/10/23 Status: Ordered rosuvastatin 10 mg oral tablet TAKE 1 TABLET BY MOUTH EVERY DAY Start Date: 12/10/23 Status: Ordered telmisartan Start: 04/26/20 2:04:00 PM EDT, 40 mg =, PO, Daily Start Date: 04/26/20 Status: Ordered Vitamin D3 Start: 06/14/19 11:00:00 AM EDT Start Date: 06/14/19 Status: Ordered Mental Status 07/11/24 Barriers to Learning one year None evide nt Mandatory Health Literacy Documentation Yes Health Literacy Communication Barriers N ever Primary Language Latvian Problem List Condition Confirmation Course Effective Dates Status Health St atus Informant Atypical nevi Confirmed Active Benign neoplasm of skin Confirmed Active Burn Confirmed Active Changing skin lesion Confirmed Active Contact dermatitis Confirmed Active Atypical nevus Confirmed Active Eczema Confirmed Active History of dysplastic nevus Confirmed Active Elevated cholesterol Confirmed Active Multiple benign nevi Confirmed Active ROSACEA Confirmed Active SK (seborrheic keratosis) Confirmed Active Diagnosis Diagnosis Type Effective Dates Health Status Clinical Service Informant Contact dermatitis Discharge Diagnosis 07/11/24 Procedures Procedure Date Related Diagnosis Body Site Status Excision 1 05/07/17 Completed Shave biopsy and cauterization of skin 04/15/17 Completed Punch biopsy 10/02/16 Completed Shave biopsy of skin 01/06/13 Comp leted Oral surgery 2 Completed Surgery 3 Completed 1central upper back 2dental implant 3vein stripping Social History Social History Type Response Smoking Status Never smoked cigaret jaz Sex Female Sex Representation Female (finding) Dermatology Outpatient Note * MD Bernadine, Elizabeth Dorsey: PERFORM Event Display: Dermatology Outpt Note Authored Date: [id number] Chief Complaint red rash on arms and left lower leg over 1 week History of Present Illness The patient is here today acutely for a rash that she has had about a week and a half starting on her arms and spreading to the lower left lower leg. She did think she saw some poison denisa in the garden that happened after that. Started on the right arm and then spread to the left. The left isobviously a linear scratch. She has tried calamine hydrocortisone and Zyrtec for it which have helped a little bit. She also uses ice on occasion. She is diabetic. Physical Exam Exam of arms and legs show erythematous papules in a linear distribution on the left arm otherwise and patches consistent with contact dermatitis on the forearms and a patch on the left lower leg Assessment/Plan 1.Contact dermatitis Acute. Discussed with patient. We discussed saying topical because of her diabetes if possible. I gave her a prescription forbetamethasone dipropionate cream to use twice a day. DiscussedBenadryl at night before bed. Also discussed washing everything that may have come into contact with the oils of the poison denisa. She does not have anyanimals that have been exposed. If not helpful she will let me know. Risks and benefits discussed. Prescription sent. Problem List/Past Medical History Ongoing Atypical nevi Atypical nevus Benign neoplasm of skin Burn Changing skin lesion Contact dermatitis Eczema Elevated cholesterol History of dysplastic nevus Multiple benign nevi ROSACEA SK (seborrheic keratosis) Procedure/Surgical History Excision| Service Date: 05/07/2017Shave biopsy and cauterization of skin| Service Date: 04/15/2017Punch biopsy| Service Date: 10/02/2016Shave biopsy of skin| Service Date: 01/06/2013SurgeryOral surgery Medications alendronate(alendronate 70 mg oral tablet) amLODIPine(amlodipine), 5 mg, PO, Daily betamethasone topical(betamethasone dipropionate 0.05% topical cream), 1 appl, topical, bid, 1 refills calcium carbonate(calcium (as carbonate) 600 mg oral tablet), 1200 mg= 2 tab, PO, Daily cholecalciferol(Vitamin D3) famotidine, 10 mg, PO, Daily, PRN glucosamine(glucosamine 500 mg oral tablet), 500 mg= 1 tab, PO, Daily metFORMIN(metFORMIN 500 mg oral tablet) rosuvastatin(rosuvastatin 10 mg oral tablet) telmisartan, 40 mg, PO, Daily Allergies Allergy Not found in Searchethilon suture Novocain"passed out" Social History Smoking Status Never smoked cigarettes Electronic Signature on File Electronically Reviewed/Signed by: Elizabeth Colindres MD Author Signature Dt/Tm:07/11/2024 03:12 PM Department of Dermatology [facility] Patient Care team information Care Team Personnel Name: Ryanne Montgomery Position: HIS Supervisor_P Member Role: HIS Lifetime Name: MD Ray Jeffrey W Position: Referring DIRECT Member Role: Primary Care Provider Address: [facility] [address] [place] [address] Care Team Related Persons Name: MARIOLA SMITH
== END 2024-09-27 16:30 | disposition home or self-care (01) ==
LOC: 2N 22:03 → ED 22:03 → SUATTDRO 09-27 02:45 → 2N 09-27 03:13

== ENCOUNTER 2025-02-09 13:13 | Observation (INO) ==
--- NOTE | 2025-02-09 13:26 | Emergency Department Note ---
Impression & Plan Syncope, Contusion of face, Fall ED Provider Note NAME: CHAD DAY AGE: 79 SEX: F : 1945 ARRIVES VIA: Ambulance INFORMANT: Patient, EMS ED PROVIDER(S): Simba Brothers DO CHIEF COMPLAINT: Fall HPI: The patient is a 79-year-old female who presented to the emergency department by ambulance after having a fall. It sounds that the patient may have had a syncopal episode. She was walking with family outdoors but then they saw her lying on the ground. She had obvious facial injury. 911 was called. The patient arrived at at the emergency department via ambulance. She was placed in a cervical collar. She denies having any chest pain. She does complain of nausea and headache. She denies having any neck pain or back pain. She denies having any lower extremity pain. The patient does not take any blood thinners. ROS: See above HPI for pertinent positives & negatives. A total of 10 systems reviewed and were otherwise negative. PAST MEDICAL HISTORY: See Below PAST SURGICAL HISTORY: See Below FAMILY HISTORY: See Below SOCIAL HISTORY: See Below HOME MEDICATIONS: See Below ALLERGIES: See Below VITALS: See Below PHYSICAL EXAMINATION: GENERAL: The patient is awake and alert. The patient is somewhat anxious appearing. EYES: The conjunctivae are clear. The pupils are round and reactive. EARS, NOSE, MOUTH AND THROAT: The nose is without any evidence of any deformity. Mucous membranes are moist. Multiple small lacerations were noted on the left side of the face. There is ecchymosis and tenderness under the left eye. Dentition appears intact. NECK: The neck is nontender and supple. Cervical spine was clinically cleared in the emergency department. RESPIRATORY: Normal respiratory effort is noted there is no evidence of wheezing rhonchi or rales CARDIOVASCULAR: Regular rate and rhythm noted there no murmurs rubs or gallops normal S1 normal S2. GASTROINTESTINAL: The abdomen is soft. Abdomen is nontender. BACK: No midline tenderness or or step-off noted range of motion in flexion extension as well as rotation no signs of muscle spasm noted MUSCULOSKELETAL/EXTREMITIES: There is no evidence of gross deformity full range of motion is noted in the hips and shoulders. SKIN: There is no obvious evidence of any rash. There are no petechiae, pallor or cyanosis noted. NEUROLOGIC: Patient is awake alert and oriented x3 strength is symmetric patellar reflexes are 2+ bilaterally MEDICAL DECISION MAKING: The patient is a 79-year-old female who presented to the emergency department after having a syncopal episode. The patient was found on the ground by family she had signs of facial injury. She does have a history of syncope in the past but this is usually been vasovagal. The patient did not really have any specific complaints and did not remember the episode. I discussed the patient's laboratory and radiographic studies with her and her family. Her family is concerned because she still seems to be not at her baseline mental status. For this reason I discussed her condition with the on-call [facility] hospitalist. They have agreed to evaluate the patient in the emergency department for further management and disposition. Triage Nursing notes reviewed. Prior medical records reviewed Vital Signs: reviewed and remarkable for no significant abnormalities Differential diagnosis: Vasovagal event, dehydration, infection, hypoglycemia, electrolyte abnormalities, cardiac sources, intracerebral event, pulmonary embolism, seizure, toxicologic, neurologic, as well as other pathologies. ER treatment provided: See below Diagnostics interpreted by me: ECG: EKG was obtained in the emergency department. My interpretation is normal sinus rhythm at 84 bpm. There was no ectopy. Nonspecific ST segment abnormalities are noted. This was compared to a tracing from September 26, 2024. No changes were noted. Cardiac Monitoring: An order was placed for continuous cardiac monitoring. The monitor shows a rate of 80 bpm with sinus rhythm. Laboratory studies: As stated above and show below. Imaging studies: See below. Radiographic imaging was reviewed by myself Consultation(s): I discussed this case with Dr. Navarrete [facility] Past Med/Surg History Problem List (Updated 02/09/25 @ 18:18 by Simba Brothers DO) Fall (Acute) Contusion of face (Acute) Syncope (Acute) GERD (gastroesophageal reflux disease) Retrograde amnesia Closed head injury with concussion Proteinuria due to type 2 diabetes mellitus Osteoarthritis Bilateral hand pain Colon cancer screening Encounter for pre-operative examination Vitamin D deficiency (Acute) Postmenopausal atrophic vaginitis (Acute) Neck pain (Acute) Laryngopharyngeal reflux (Acute) Headache (Acute) Lump in the groin Laryngitis Chronic rhinitis Neck pain Dehydration (Acute) Abdominal pain Fatigue Abnormal Pap smear of cervix Post-menopausal COVID-19 (Acute) Syncope and collapse (Acute) Hypokalemia Hypocalcemia Sinusitis History of COVID-19 Excessive cerumen in right ear canal History of ankle fracture (02/22/22) Left Ankle. displaced distal left fibular fracture and fracture of the posterior left malleolus without significant displacement Chronic headaches (Acute) Diabetes mellitus (Acute) pt reports "pre diabetic" Erosive osteoarthritis of hands, bilateral (Acute) Hypertension (Acute) Osteopenia (Acute) Solitary thyroid nodule (Acute) pt denies Vasovagal syncope (Acute) treated at [facility] x2 in the last 2 years - last episode 12/2022. treated at [facility] emergency room Medical History Dizziness PFO (patent foramen ovale) History of COVID-19 01/12/23 - mild flu like symptoms. GERD (gastroesophageal reflux disease) Hiatal hernia Hyperlipidemia Voice hoarseness Surgical History History of esophagogastroduodenoscopy (EGD) S/P vein stripping History of open reduction and internal fixation (ORIF) procedure left ankle with hardware History of cryosurgery cervix (pt denies) Hx of tonsillectomy H/O colonoscopy 08/01, neg, due in 10 years H/O oral surgery S/P arthroscopy of knee unsure of which side History of appendectomy Family History Mother Thyroid disorder Malignant melanoma Alzheimer disease Father Pancreatic neoplasm Cancer Denies family history of Ovarian cancer Breast cancer Bleeding disorder Colorectal cancer Social History Smoking Status: Never smoker Second Hand Exposure: No; Do You Dip or Chew Tobacco: No; Hx Alcohol Use: No Hx Substance Use: No Preferred Language: Spanish Communication Ability: Effective Communication Ability Comment: haitian Visual Impairment: No Limitations Hearing Ability: Normal Client Services Manager Required: No Beliefs That Will Affect Care: None marital status: Current Living Situation: Spouse current occupational status: retired Feels Safe at Home: Yes Childhood Exposure to Second-Hand Smoke: No Diet: regular Dental Care, Regularly: Yes Physical Activity Frequency: Daily Seatbelt Use: always Sunscreen Use: Yes Assistive Devices: None Allergies Allergies Allergy/AdvReac Type Severity Reaction Status Date / Time lidocaine Allergy Unknown FAINT Verified 10/10/24 11:50 procaine [From Novocain] Allergy Unknown syncope Verified 10/10/24 11:50 Home Meds Home Medications Medication Instructions Recorded Confirmed calcium 315 mg (as 1 tab PO QAM 09/13/19 02/09/25 citrate)-vitamin D3 6.25 mcg (250 unit) tablet glucosamine sulfate 500 mg capsule 500 mg PO Q OTHER DAY 09/13/19 02/09/25 cholecalciferol (vitamin D3) 25 2,000 unit PO QAM 07/16/21 02/09/25 mcg (1,000 unit) capsule multivitamin 1 tab PO Q OTHER DAY 10/30/22 02/09/25 telmisartan 80 mg tablet 80 mg PO QAM 09/27/24 02/09/25 amlodipine 2.5 mg tablet 2.5 mg PO QPM 02/09/25 02/09/25 amlodipine 5 mg tablet 5 mg PO QPM 02/09/25 02/09/25 pantoprazole 20 mg tablet,delayed 20 mg PO DAILY PRN Heartburn 02/09/25 02/09/25 release rosuvastatin 10 mg tablet 10 mg PO QPM 02/09/25 02/09/25 Previous Rx's Medication Instructions Recorded famotidine 20 mg tablet (Acid 20 mg PO QAM #90 tabs 01/20/24 [place] (famotidine)) blood sugar diagnostic (OneTouch #200 ea 03/23/24 Verio test strips) flash glucose sensor (FreeStyle #2 ea 08/01/24 Meaghan 2 Sensor kit) lancets 33 gauge #200 ea 08/25/24 alendronate 70 mg tablet (Fosamax) 70 mg PO WK #12 tabs 12/12/24 metformin 500 mg tablet 500 mg PO BID #180 tabs 01/16/25 blood-glucose meter (OneTouch #1 ea 01/23/25 Verio Flex Start kit) Results & Data (ED) Vital Signs Vital Signs - 24 hr 02/09/25 13:22 02/09/25 13:26 02/09/25 13:26 Temperature 36.3 C L Temperature Source Oral Pulse Rate 86 86 86 Pulse Rate [Apical] Pulse Rhythm [Apical] Pulse Strength [Apical] Respiratory Rate 17 17 Respiratory Effort / Characteristics Non-Labored Spontaneous Respiratory Depth Normal Respiratory Pattern Regular Blood Pressure 164/77 H Blood Pressure [Right Arm] Blood Pressure Mean 106 Blood Pressure Mean [Right Arm] Blood Pressure Position Lying Blood Pressure Position [Right Arm] Pulse Oximetry 98 98 Oxygen Delivery Method Room Air Room Air Sepsis Recent Fever Within 48 Hours No Sepsis New/Unexplained Change in Mental Status N/A Sepsis Action Taken by Nursing No Action Required 02/09/25 13:26 02/09/25 15:00 02/09/25 17:00 Temperature 36.3 C L Temperature Source Oral Pulse Rate Pulse Rate [Apical] 86 84 80 Pulse Rhythm [Apical] Regular Pulse Strength [Apical] Normal Respiratory Rate 17 17 17 Respiratory Effort / Characteristics Non-Labored Spontaneous Non-Labored Spontaneous Non-Labored Spontaneous Respiratory Depth Normal Normal Normal Respiratory Pattern Blood Pressure Blood Pressure [Right Arm] 164/77 H 151/87 H 152/73 H Blood Pressure Mean Blood Pressure Mean [Right Arm] 106 108 99 Blood Pressure Position Blood Pressure Position [Right Arm] Semi-fowlers Semi-fowlers Semi-fowlers Pulse Oximetry 98 96 95 Oxygen Delivery Method Room Air Room Air Room Air Sepsis Recent Fever Within 48 Hours Sepsis New/Unexplained Change in Mental Status Sepsis Action Taken by Nursing 02/09/25 17:34 Temperature Temperature Source Pulse Rate 80 Pulse Rate [Apical] Pulse Rhythm [Apical] Pulse Strength [Apical] Respiratory Rate Respiratory Effort / Characteristics Respiratory Depth Respiratory Pattern Blood Pressure Blood Pressure [Right Arm] Blood Pressure Mean Blood Pressure Mean [Right Arm] Blood Pressure Position Blood Pressure Position [Right Arm] Pulse Oximetry Oxygen Delivery Method Sepsis Recent Fever Within 48 Hours Sepsis New/Unexplained Change in Mental Status Sepsis Action Taken by Group Home Medications Current Medication List: was personally reviewed by me Laboratory Data Attestation: I reviewed the patient's lab results. 02/09/25 14:15 02/09/25 14:15 Lab Results 02/09/25 02/09/25 02/09/25 Range/Units 14:15 14:20 14:30 WBC 9.58 (4.8-10.8) K/ul RBC 4.65 (4.20-5.40) M/uL Hgb 13.4 (12.0-16.0) g/dl POC Hgb 13.9 (12.0-16.0) g/dl Hct 40.0 (37.0-47.0) % POC Hct 41 (37-47) % MCV 86.0 (80.0-100.0) fL MCH 28.8 (25.0-34.0) pg MCHC 33.5 (32.0-36.0) g/dL RDW Std Deviation 41.1 (36.4-46.3) fL RDW Coeff of Omar 13.2 (11.5-14.5) % Plt Count 240 (130-400) K/uL MPV 10.1 (9.4-12.4) fL Immature Gran % (Auto) 0.4 % Neut % (Auto) 78.3 % Lymph % (Auto) 13.0 % [place] % (Auto) 6.3 % Eos % (Auto) 1.7 % Baso % (Auto) 0.3 % Neut # (Auto) 7.50 H (1.40-6.50) K/uL Lymph # (Auto) 1.25 (1.20-3.40) K/uL [place] # (Auto) 0.60 H (0.11-0.59) K/uL Eos # (Auto) 0.16 (0.00-0.50) K/uL Baso # (Auto) 0.03 (0.00-0.20) K/uL Immature Gran # (Auto) 0.04 (0.01-0.20) K/uL PT 11.2 (9.0-12.0) Seconds INR 1.0 (0.9-1.1) APTT 25 (21-31) Seconds PTT Ratio 0.9 POC Sodium 138 (135-144) mmol/L Sodium 138 (136-145) mmol/L POC Potassium 3.7 (3.3-5.0) mmol/L Potassium 3.7 (3.5-5.1) mmol/L POC Chloride 100 L (101-112) mmol/L Chloride 101 (98-107) mmol/L Carbon Dioxide 30 (21-32) mmol/L POC Total CO2 26 (24-31) mmol/L Anion Gap 7 (3-11) POC Anion Gap 17.0 (16-25) mmol/L POC BUN 18 (7-18) mg/dl BUN 18 (6-23) mg/dl Creatinine 0.62 (0.6-1.2) mg/dl POC Creatinine 0.7 (0.6-1.3) mg/dl Est Cr Clr Drug Dosing 66.1 ml/min eGFR 91.09 BUN/Creatinine Ratio 29.0 H (10-20) Glucose 118 H (70-99(Fasting)) mg/dl POC Glucose (other) 117 H (70-99) mg/dl Calcium 9.7 (8.6-10.3) mg/dl POC Ioniz Calcium Jv 1.14 (1.12-1.32) mmol/l Total Bilirubin 0.6 (0.2-1.0) mg/dl AST 21 (13-39) U/L ALT 15 (7-52) U/L Alkaline Phosphatase 76 (34-104) U/L Total Creatine Kinase 65 (26-192) U/L Troponin I High Sens < 2.3 (0-14) pg/ml Total Protein 7.6 (6.0-8.3) gm/dl Albumin 5.1 H (3.4-5.0) gm/dl Globulin 2.5 (2.5-4.0) gm/dl Albumin/Globulin Ratio 2.0 (0.9-2) Lipase 18 (11-82) U/L Urine Color Yellow Urine Appearance Clear (Clear) Urine pH 7.5 (4.5-7.5) Ur Specific [place] 1.007 (1.000-1.030) Urine Protein Negative (Negative) Urine Glucose (UA) Negative (Negative) Urine Ketones Negative (Negative) Urine Blood Negative (Negative) Urine Nitrite Negative (Negative) Urine Bilirubin Negative (Negative) Urine Urobilinogen Negative (Negative) Ur Leukocyte Esterase Trace H (Negative) Urine WBC (Auto) 0-5 (0-5) /hpf Urine RBC (Auto) 0-2 (0-2) /hpf U Hyaline Cast (Auto) 0-2 (0-2) /lpf U Epithel Cells (Auto) 0-2 (0-2) /hpf Urine Bacteria (Auto) None Seen (None Seen) Administered Medications Discontinued Medications Sodium Chloride (Nss) 500 mls @ 999 mls/hr IV .Q31M ONE Stop: 02/09/25 13:52 Last Infusion: 02/09/25 15:57 Dose: Infused Documented By: Admin: 02/09/25 13:57 Dose: 999 mls/hr Documented By: MARQUIS Ioversol (Optiray 320 125ml) 120 ml IV ONCE ONE Stop: 02/09/25 14:36 Last Admin: 02/09/25 14:35 Dose: 120 ml Documented By: JESSICA Ondansetron HCl (Ondansetron Inj 2 Mg/Ml 2 Ml Vial) 4 mg IV NOW STA Stop: 02/09/25 13:23 Last Admin: 02/09/25 13:57 Dose: 4 mg Documented By: MARQUIS Imaging Data Attestation: I personally reviewed and interpreted this imaging study as follows: My Impression: CT of the chest was obtained in the emergency department. My interpretation is no free air or definite infiltrate, final report below. CT of the brain was obtained in the emergency department. My interpretation is no intracranial hemorrhage or mass effect, final report below. Radiologist's Impression: Chest CTA 02/09/25 13:22 CT angio chest PE protocol CT DOSE: 3171.34 mGy.cm HISTORY: 79 years-old Female with PE. Acute shortness of breath status post fall TECHNIQUE: Multiple CTA images of the chest were obtained after the intravenous administration of 120 ml Optiray. Coronal and sagittal MIPS were obtained from the axial data set and were submitted for review. All measurements were obtained according to NASCET criteria. A dose lowering technique was utilized adhering to the principles of ALARA. COMPARISON: Chest radiograph September 26, 2024 FINDINGS: CTA: Heart is mildly enlarged. Trace pericardial effusion. No thoracic aortic aneurysm. No pulmonary emboli are seen. CT CHEST: No dominant thyroid nodule is seen. No pathologically adenopathy by CT size criteria. There are a few scattered subcentimeter calcified pulmonary granulomata noted. There is no pneumothorax, pleural effusion or focal airspace consolidation. The imaged upper abdominal structures are normal. Bridging osteophytosis. Vertebral body hemangioma noted at T9 with T7 bone island. The osseous structures appear intact. IMPRESSION: 1. Unremarkable CTA of the chest. 2. No acute posttraumatic intrathoracic abnormality. ACT 112: Negative or not required by law. The above report was generated using voice recognition software. It may contain grammatical, syntax or spelling errors. Electronically signed by: Venu Guzman M.D. 02/09/2025 3:[address] 02/09/25 13:22 CT facial bones wo con CLINICAL HISTORY: 79 years-old Female presenting with trauma. Acute facial trauma status post fall COMPARISON STUDY: Head CT of same day TECHNIQUE: High-resolution CT scan of the facial bones is performed. Images are reviewed in the axial, sagittal, and coronal planes. IV contrast was not administered for this examination. A dose lowering technique was utilized adhering to the principles of ALARA. FINDINGS: Head CT dictated separately. Multilevel changes of the cervical spine. No acute facial bone fracture identified. There is mild mucosal thickening of the paranasal sinuses. The mastoid air cells are clear. Left forehead, periorbital and cheek contusions. Nasal bones and orbits appear intact. No acute facial bone fracture identified. IMPRESSION: Left facial contusions without acute facial bone fracture identified. ACT 112: Negative or not required by law. The above report was generated using voice recognition software. It may contain grammatical, syntax or spelling errors. Electronically signed by: Venu Guzman M.D. 02/09/2025 3:14 PM Abdomen/Pelvis CT 02/09/25 13:[address] WITH IV CONTRAST CT DOSE: 3171.34mGy*cm HISTORY: Ground-level fall Trauma TECHNIQUE: Multiaxial CT images of the abdomen and pelvis were performed following the IV administration of 120 cc of Optiray, sagittal and coronal reconstructions were done. A dose lowering technique was utilized adhering to the principles of ALARA. COMPARISON STUDY: 01/12/2023 FINDINGS: The lung bases are negative. There is no acute skeletal injury identified. There is mild diffuse hepatic steatosis. There is no solid organ injury identified. The gallbladder and bile ducts are unremarkable. There is no aortic aneurysm or periaortic adenopathy. There is mild bilaterally symmetrical distention of the renal pelves and calyces with a transition zone at the UPJs. There is no evidence of stone disease. There is no diverticulitis or colitis identified. In the pelvis, there is no acute process identified in. The uterus is small and midline. There is moderate distention of the rectum with feces. There is no proximal obstruction. There is no definite perirectal inflammation or rectal wall thickening at this point. IMPRESSION: No acute process identified in the abdomen and pelvis. Mild bilateral UPJ narrowing is noted. No evidence of urinary tract stone. Rectum moderately distended with fecal debris consistent with a developing impaction. ACT 112: Negative or not required by law. The above report was generated using voice recognition software. It may contain grammatical, syntax or spelling errors. Electronically signed by: Nayely Gordon M.D. 02/09/2025 3:[address] 02/09/25 13:23 CT cervical spine wo con CLINICAL HISTORY: Trauma. COMPARISON: 09/26/2024 TECHNIQUE: Multiple axial CT images of the cervical spine were obtained without contrast. A dose lowering technique was utilized adhering to the principles of ALARA. FINDINGS: There is moderate diffuse degenerative disc disease. No cervical spine fracture or subluxation seen. IMPRESSION: No cervical spine fracture seen. ACT 112: Negative or not required by law. The above report was generated using voice recognition software. It may contain grammatical, syntax or spelling errors. Electronically signed by: Rosendo Vinson M.D. 02/09/2025 3:[address] 02/09/25 13:23 CT head/brain wo con CLINICAL HISTORY: 79 years-old Female with trauma. Acute head trauma TECHNIQUE: Multiple axial CT images of the head were obtained without contrast. A dose lowering technique was utilized adhering to the principles of ALARA. COMPARISON: September 26, 2024 FINDINGS: No acute intracranial hemorrhage, midline shift, intracranial mass, hydrocephalus, territorial ischemia or abnormal extra-axial collection. Involutional changes with white matter hypodensities suggestive of chronic microvascular ischemic disease. The calvarium is intact. Mastoid air cells are clear. Mild mucosal thickening of the paranasal sinuses. Left forehead/periorbital and left cheek contusions. IMPRESSION: 1. No acute intracranial abnormality or calvarial fracture. 2. Left scalp and facial contusions. ACT 112: Negative or not required by law. The above report was generated using voice recognition software. It may contain grammatical, syntax or spelling errors. Electronically signed by: Venu Guzman M.D. 02/09/2025 3:11 PM Discharge Plan Visit Data Chief Complaint: Fall Stated Complaint: FALL ED Provider: Simba Brothers Discharge Problem: Syncope, Contusion of face, Fall Patient Disposition: Being Evaluated by Hospitalist Forms Stand Alone Forms: [employer] Prescriptions Prescriptions: No Action (DME) OneTouch Verio test strips Strip See Rx Instructions .ROUTE .MEDSUPPLY Qty: 200 3RF Rx Instructions: TEST ONCE DAILY (DME) FreeStyle Meaghan 2 Sensor Kit See Rx Instructions .Route Qty: 2 5RF Rx Instructions: Apply one sensor every 14 days to monitor glucose continuously. (DME) lancets 33 gauge misc See Rx Instructions .ROUTE .MEDSUPPLY Qty: 200 3RF Rx Instructions: TEST ONCE DAILY alendronate [Fosamax] 70 mg tablet 70 mg PO WK Qty: 12 3RF Rx Instructions: wednesdays metformin 500 mg tablet 500 mg PO BID Qty: 180 3RF Hold Instructions: Resume on 09/28/24. Rx Instructions: once daily with lunch (DME) blood-glucose meter [OneTouch Verio Flex Start] Kit See Rx Instructions .ROUTE .MEDSUPPLY Qty: 1 0RF Rx Instructions: TEST ONCE DAILY calcium citrate-vitamin D3 315 mg- 250 unit tablet 1 tab PO QAM glucosamine sulfate 500 mg capsule 500 mg PO Q OTHER DAY Rx Instructions: pt states that she takes medication every other day cholecalciferol (vitamin D3) 25 mcg (1,000 unit) capsule 2,000 unit PO QAM famotidine [Acid [place] (famotidine)] 20 mg tablet 20 mg PO QAM Qty: 90 3RF multivitamin Tablet 1 tab PO Q OTHER DAY Rx Instructions: pt states that she takes medication every other day telmisartan 80 mg tablet 80 mg PO QAM amlodipine 2.5 mg tablet 2.5 mg PO QPM Rx Instructions: Take with 5 mg tablet amlodipine 5 mg tablet 5 mg PO QPM Rx Instructions: Take with 2.5 mg tablet pantoprazole 20 mg tablet,delayed release (DR/EC) 20 mg PO DAILY PRN (Reason: Heartburn) rosuvastatin 10 mg tablet 10 mg PO QPM Referrals Referrals: Pro,Simba Collier MD [Primary Care Provider] -
[2025-02-09] MEDS: ONDANSETRON INJ 2 MG/ML 2 ML VIAL IV STA (13:57)
[2025-02-09] MEDS: SODIUM CHLORIDE 0.9% 500 ML IV ONE (13:57)
[2025-02-09 14:29] LABS: Basophils # (auto) 0.03 K/uL (0.00-0.20); Basophils % (auto) 0.3 %; Eosinophils # (auto) 0.16 K/uL (0.00-0.50); Eosinophils % (auto) 1.7 %; Hemoglobin 13.4 g/dl (12.0-16.0); Immature Granulocytes # (auto) 0.04 K/uL (0.01-0.20); Immature Granulocytes % (auto) 0.4 %; Lymphocytes # (auto) 1.25 K/uL (1.20-3.40); Mean Corpuscular Hemoglobin 28.8 pg (25.0-34.0); Mean Corpuscular Hgb Conc 33.5 g/dL (32.0-36.0); Mean Platelet Volume 10.1 fL (9.4-12.4); Monocytes % (auto) 6.3 %; Neutrophils % (auto) 78.3 %; Platelet Count 240 K/uL (130-400); RDW Coefficient of Variation 13.2 % (11.5-14.5); RDW Standard Deviation 41.1 fL (36.4-46.3); Red Blood Count 4.65 M/uL (4.20-5.40); White Blood Count 9.58 K/ul (4.8-10.8)
[2025-02-09 14:32] LABS: iSTAT Creatinine 0.7 mg/dl (0.6-1.3); iSTAT Hemoglobin 13.9 g/dl (12.0-16.0); iSTAT Ionized Calcium 1.14 mmol/l (1.12-1.32); iSTAT Potassium 3.7 mmol/L (3.3-5.0)
[2025-02-09] MEDS: OPTIRAY 320 125ml IV ONE (14:35)
[2025-02-09 14:40] LABS: Partial Thromboplastin Ratio 0.9; Partial Thromboplastin Time 25 Seconds (21-31); Prothrombin Time 11.2 Seconds (9.0-12.0)
[2025-02-09 14:46] LABS: Albumin Level 5.1 gm/dl (3.4-5.0); Anion Gap 7 (3-11); Bilirubin,Total 0.6 mg/dl (0.2-1.0); Calcium 9.7 mg/dl (8.6-10.3); Carbon Dioxide 30 mmol/L (21-32); Chloride 101 mmol/L (98-107); Potassium 3.7 mmol/L (3.5-5.1); Sodium 138 mmol/L (136-145)
[2025-02-09 14:53] LABS: Alanine Aminotransferase 15 U/L (7-52); Alkaline Phosphatase 76 U/L (34-104); Aspartate Aminotransferase 21 U/L (13-39); Blood Urea Nitrogen 18 mg/dl (6-23); Creatine Kinase 65 U/L (26-192); Creatinine Clr Calc Pharmacy 66.1 ml/min; Globulin 2.5 gm/dl (2.5-4.0); Glucose 118 mg/dl (70-99(Fasting)); Lipase 18 U/L (11-82); Total Protein 7.6 gm/dl (6.0-8.3)
[2025-02-09 14:59] LABS: Troponin I High Sensitivity < 2.3 pg/ml (0-14)
--- NOTE | 2025-02-09 15:03 | CT Scan Report ---
CT cervical spine wo con CLINICAL HISTORY: Trauma. COMPARISON: 09/26/2024 TECHNIQUE: Multiple axial CT images of the cervical spine were obtained without contrast. A dose low ering technique was utilized adhering to the principles of ALARA. FINDINGS: There is moderate diffuse degenerative disc disease. No cervical spine fracture or subluxat ion seen. IMPRESSION: No cervical spine fracture seen. ACT 112: Negative or not required by law. The above report was generated using voice recognition software. It may contain grammatical, syntax o r spelling errors. Electronically signed by: Rosendo Vinson M.D. 02/09/2025 3:01 PM
--- NOTE | 2025-02-09 15:04 | CT Scan Report ---
ABDOMEN AND PELVIS CT WITH IV CONTRAST CT DOSE: 3171.34mGy*cm HISTORY: Ground-level fall Trauma TECHNIQUE: Multiaxial CT images of the abdomen and pelvis were performed following the IV administrat ion of 120 cc of Optiray, sagittal and coronal reconstructions were done. A dose lowering technique was utilized adhering to the principles of ALARA. COMPARISON STUDY: 01/12/2023 FINDINGS: The lung bases are negative. There is no acute skeletal injury identified. There is mild diffuse hepatic steatosis. There is no solid organ injury identified. The gallbladder a nd bile ducts are unremarkable. There is no aortic aneurysm or periaortic adenopathy. There is mild bilaterally symmetrical distention of the renal pelves and calyces with a transition zo ne at the UPJs. There is no evidence of stone disease. There is no diverticulitis or colitis identified. In the pelvis, there is no acute process identified in. The uterus is small and midline. There is mod erate distention of the rectum with feces. There is no proximal obstruction. There is no definite per irectal inflammation or rectal wall thickening at this point. IMPRESSION: No acute process identified in the abdomen and pelvis. Mild bilateral UPJ narrowing is noted. No evidence of urinary tract stone. Rectum moderately distended with fecal debris consistent with a developing impaction. ACT 112: Negative or not required by law. The above report was generated using voice recognition software. It may contain grammatical, syntax o r spelling errors. Electronically signed by: Nayely Gordon M.D. 02/09/2025 3:02 PM
--- NOTE | 2025-02-09 15:12 | CT Scan Report ---
CT head/brain wo con CLINICAL HISTORY: 79 years-old Female with trauma. Acute head trauma TECHNIQUE: Multiple axial CT images of the head were obtained without contrast. A dose lowering tech nique was utilized adhering to the principles of ALARA. COMPARISON: September 26, 2024 FINDINGS: No acute intracranial hemorrhage, midline shift, intracranial mass, hydrocephalus, territorial ischem ia or abnormal extra-axial collection. Involutional changes with white matter hypodensities suggestiv e of chronic microvascular ischemic disease. The calvarium is intact. Mastoid air cells are clear. Mild mucosal thickening of the paranasal sinus es. Left forehead/periorbital and left cheek contusions. IMPRESSION: 1. No acute intracranial abnormality or calvarial fracture. 2. Left scalp and facial contusions. ACT 112: Negative or not required by law. The above report was generated using voice recognition software. It may contain grammatical, syntax o r spelling errors. Electronically signed by: Venu Guzman M.D. 02/09/2025 3:11 PM
[2025-02-09 15:13] LABS: Appearance Urine Clear (Clear); Bacteria Urine Automated None Seen (None Seen); Bilirubin Urine Negative (Negative); Blood Urine Negative (Negative); Cast Urine Automated 0-2 /lpf (0-2); Color Urine Yellow; Epithelial Cell Urine Auto 0-2 /hpf (0-2); Glucose Urine UA Negative (Negative); Ketones Urine Negative (Negative); Leukocyte Esterase Urine Trace (Negative); Nitrite Urine Negative (Negative); Protein Urine Negative (Negative); RBC Urine Automated 0-2 /hpf (0-2); Specific Gravity Urine 1.007 (1.000-1.030); Urobilinogen Urine Negative (Negative); WBC Urine Automated 0-5 /hpf (0-5); pH Urine 7.5 (4.5-7.5)
--- NOTE | 2025-02-09 15:16 | CT Scan Report ---
CT facial bones wo con CLINICAL HISTORY: 79 years-old Female presenting with trauma. Acute facial trauma status post fall COMPARISON STUDY: Head CT of same day TECHNIQUE: High-resolution CT scan of the facial bones is performed. Images are reviewed in the axia l, sagittal, and coronal planes. IV contrast was not administered for this examination. A dose lower ing technique was utilized adhering to the principles of ALARA. FINDINGS: Head CT dictated separately. Multilevel changes of the cervical spine. No acute facial bone fracture identified. There is mild mucosal thickening of the paranasal sinuses. The mastoid air cells are leatha r. Left forehead, periorbital and cheek contusions. Nasal bones and orbits appear intact. No acute fa cial bone fracture identified. IMPRESSION: Left facial contusions without acute facial bone fracture identified. ACT 112: Negative or not required by law. The above report was generated using voice recognition software. It may contain grammatical, syntax o r spelling errors. Electronically signed by: Venu Guzman M.D. 02/09/2025 3:14 PM
--- NOTE | 2025-02-09 15:23 | CT Scan Report ---
CT angio chest PE protocol CT DOSE: 3171.34 mGy.cm HISTORY: 79 years-old Female with PE. Acute shortness of breath status post fall TECHNIQUE: Multiple CTA images of the chest were obtained after the intravenous administration of 120 ml Optiray. Coronal and sagittal MIPS were obtained from the axial data set and were submitted for review. All measurements were obtained according to NASCET criteria. A dose lowering technique was u tilized adhering to the principles of ALARA. COMPARISON: Chest radiograph September 26, 2024 FINDINGS: CTA: Heart is mildly enlarged. Trace pericardial effusion. No thoracic aortic aneurysm. No pulmonary embol i are seen. CT CHEST: No dominant thyroid nodule is seen. No pathologically adenopathy by CT size criteria. There are a few scattered subcentimeter calcified pulmonary granulomata noted. There is no pneumothorax, pleural eff usion or focal airspace consolidation. The imaged upper abdominal structures are normal. Bridging osteophytosis. Vertebral body hemangioma noted at T9 with T7 bone island. The osseous structures appear intact. IMPRESSION: 1. Unremarkable CTA of the chest. 2. No acute posttraumatic intrathoracic abnormality. ACT 112: Negative or not required by law. The above report was generated using voice recognition software. It may contain grammatical, syntax o r spelling errors. Electronically signed by: Venu Guzman M.D. 02/09/2025 3:22 PM
--- NOTE | 2025-02-09 17:15 | Electrocardiogram Report ---
Test Reason : Blood Pressure : */* mmHG Vent. Rate : 84 BPM Atrial Rate : 84 BPM P-R Int : 156 ms QRS Dur : 76 ms QT Int : 372 ms P-R-T Axes : 80 78 54 degrees QTcB Int : 439 ms Normal sinus rhythm Nonspecific ST abnormality Abnormal ECG When compared with ECG of 26-Sep-2024 22:22, No significant change was found Confirmed by Sean Gill ([id number]) on 02/09/2025 5:14:50 PM Referred By: REFERRED SELF Confirmed By: Sean Gill
--- NOTE | 2025-02-09 17:21 | History & Physical Report ---
Date of Service February 09, 2025 Assessment & Plan (1) Closed head injury with concussion: Plan: It appears the patient fell while she was ambulating and struck the left side of her head and face suffering contusions and abrasions but fortunately no fracture seen on multiple CT scans. Ice applications for the first 24 hours to help control the swelling. Supportive care (2) Retrograde amnesia: Plan: The patient has no recollection of current events. Her mental status has already improved according to the family. Supportive care (3) Diabetes mellitus: Plan: ADA diet. Hold metformin. Sliding scale coverage if needed (4) Hypertension: Plan: Telmisartan and amlodipine are currently on hold. Baseline EKG is unremarkable. Telemetry (5) GERD (gastroesophageal reflux disease): Plan: Continue Pepcid and Protonix which she takes at home Plan Hopefully she can go home tomorrow, February 10 History of Present Illness Chief Complaint: Suspected mechanical fall with facial contusions, closed head injury, suspected mild concussion and retrograde amnesia Primary Care Provider: Simba Ray MD 79-year-old female in good health who apparently tripped and fell suffering contusions to her left face and scalp accompanied by retrograde amnesia. She has no recollection whatsoever of the events. Fortunately, her CT scans reveal no bone fractures. She does have the bruising and contusions of the left forehead left periorbital area and left cheek area. She is applying ice to these areas while in the ED. Family states that she was alone when this occurred and the patient has no recollection of the events. She cannot tell me you if she felt lightheaded before the event or had any chest pain shortness of breath or palpitations. X-rays are negative for fracture. EKG reveals normal sinus rhythm. Head CT scan is negative. She is placed in observation with telemetry for further evaluation Allergies Allergy/AdvReac Type Severity Reaction Status Date / Time lidocaine Allergy Unknown FAINT Verified 10/10/24 11:50 procaine [From Novocain] Allergy Unknown syncope Verified 10/10/24 11:50 Home Medications Medication Instructions Recorded Confirmed Type calcium 315 mg (as 1 tab PO QAM 09/13/19 10/10/24 History citrate)-vitamin D3 6.25 mcg (250 unit) tablet glucosamine sulfate 500 mg capsule 500 mg PO Q OTHER DAY 09/13/19 10/10/24 History cholecalciferol (vitamin D3) 25 2,000 unit PO QAM 07/16/21 10/10/24 History mcg (1,000 unit) capsule multivitamin 1 tab PO Q OTHER DAY 10/30/22 10/10/24 History famotidine 20 mg tablet (Acid 20 mg PO QAM #90 tabs 01/20/24 10/10/24 Rx Clinic Lead (famotidine)) blood sugar diagnostic (OneTouch #200 ea 03/23/24 10/10/24 Rx Verio test strips) rosuvastatin 10 mg tablet 10 mg PO DAILY 90 days #90 tabs 05/20/24 10/10/24 Rx pantoprazole 20 mg tablet,delayed 20 mg PO DAILY 3 months #90 tabs 06/02/24 10/10/24 Rx release flash glucose sensor (FreeStyle #2 ea 08/01/24 10/10/24 Rx Meaghan 2 Sensor kit) lancets 33 gauge #200 ea 08/25/24 10/10/24 Rx telmisartan 80 mg tablet 80 mg PO DAILY 09/27/24 10/10/24 History amlodipine 2.5 mg tablet 2.5 mg PO DAILY #90 tabs 11/18/24 Rx amlodipine 5 mg tablet 5 mg PO DAILY #90 tabs 11/18/24 Rx alendronate 70 mg tablet (Fosamax) 70 mg PO WK #12 tabs 12/12/24 Rx oseltamivir 75 mg capsule (Tamiflu) 75 mg PO DAILY #7 caps 01/03/25 Rx metformin 500 mg tablet 500 mg PO BID #180 tabs 01/16/25 Rx blood-glucose meter (OneTouch #1 ea 01/23/25 Rx Verio Flex Start kit) Past Med/Surg History Problem List (Updated 02/09/25 @ 17:19 by Juan Navarrete MD) GERD (gastroesophageal reflux disease) Retrograde amnesia Closed head injury with concussion Proteinuria due to type 2 diabetes mellitus Osteoarthritis Bilateral hand pain Colon cancer screening Encounter for pre-operative examination Vitamin D deficiency (Acute) Postmenopausal atrophic vaginitis (Acute) Neck pain (Acute) Laryngopharyngeal reflux (Acute) Headache (Acute) Lump in the groin Laryngitis Chronic rhinitis Neck pain Dehydration (Acute) Abdominal pain Fatigue Abnormal Pap smear of cervix Post-menopausal COVID-19 (Acute) Syncope and collapse (Acute) Hypokalemia Hypocalcemia Sinusitis History of COVID-19 Excessive cerumen in right ear canal History of ankle fracture (02/22/22) Left Ankle. displaced distal left fibular fracture and fracture of the posterior left malleolus without significant displacement Chronic headaches (Acute) Diabetes mellitus (Acute) pt reports "pre diabetic" Erosive osteoarthritis of hands, bilateral (Acute) Hypertension (Acute) Osteopenia (Acute) Solitary thyroid nodule (Acute) pt denies Vasovagal syncope (Acute) treated at [facility] x2 in the last 2 years - last episode 12/2022. treated at [facility] emergency room Medical History Dizziness PFO (patent foramen ovale) History of COVID-19 01/12/23 - mild flu like symptoms. GERD (gastroesophageal reflux disease) Hiatal hernia Hyperlipidemia Voice hoarseness Surgical History History of esophagogastroduodenoscopy (EGD) S/P vein stripping History of open reduction and internal fixation (ORIF) procedure left ankle with hardware History of cryosurgery cervix (pt denies) Hx of tonsillectomy H/O colonoscopy 08/01, neg, due in 10 years H/O oral surgery S/P arthroscopy of knee unsure of which side History of appendectomy Family History Mother Thyroid disorder Malignant melanoma Alzheimer disease Father Pancreatic neoplasm Cancer Denies family history of Ovarian cancer Breast cancer Bleeding disorder Colorectal cancer Social History Smoking Status: Never smoker Second Hand Exposure: No; Do You Dip or Chew Tobacco: No; Hx Alcohol Use: No Hx Substance Use: No Preferred Language: Bulgarian Communication Ability: Effective Communication Ability Comment: turkish Visual Impairment: No Limitations Hearing Ability: Normal 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 No recollection of recent events ENTno blurred vision, no double vision, no epistaxis, no sore throat Respiratoryno cough, no wheezing, no shortness of breath Cardiacno palpitations, no chest pain, no syncope Greg nausea, vomiting, diarrhea, melena, hematochezia GUno urinary retention, no urinary incontinence, no dysuria, no hematuria Musculoskeletalno joint pain, no muscle tenderness Skinno bruising, no rashes, no pruritus Neurono isolated weakness, no paresthesia, no weakness Psychno depression, no anxiety Physical Exam 2 Physical Exam: General-alert and oriented x3, no fever, no chills HEENT-contusions bruising and swelling left temporal area, left forehead, left cheek area and left periorbital areas, pupils equal and reactive to light, extraocular muscles intact Neck-no lymphadenopathy or thyromegaly, trachea midline Chest-clear to auscultation. No rales, wheezing or rhonchi Cardiac-regular rate and rhythm, normal S1 and S2 Abdomen-normal bowel sounds, no hepatosplenomegaly Extremities-no cyanosis, clubbing, or edema Neuro-cranial nerves II through XII intact, motor and sensory function within normal limits, strength symmetrical, no focal deficits Psych-normal affect, normal mood Results & Data Results & Data Vital Signs (Past 12 Hours) Vital Signs Temp Pulse Pulse Resp BP BP Pulse Ox 02/09/25 17:00 80 17 152/73 H 95 02/09/25 15:00 84 17 151/87 H 96 02/09/25 13:26 36.3 C L 86 17 164/77 H 98 02/09/25 13:26 86 17 98 02/09/25 13:26 36.3 C L 86 17 164/77 H 98 02/09/25 13:22 86 O2 Del Method 02/09/25 17:00 Room Air 02/09/25 15:00 Room Air 02/09/25 13:26 Room Air 02/09/25 13:26 Room Air 02/09/25 13:26 Room Air 02/09/25 13:22 Laboratory Results 02/09/25 14:15 02/09/25 14:15 Code Status & VTE Plan Code Status Full code PG Care Time/CCT Total # of Minutes Spent Total Time Spent with Patient: Total time spent is greater than 50% in coordination of care (as documented) at patient's floor/unit and/or counseling patient: Coding Level of Care Code 90521 INT INP/OBS CARE 75MIN Diagnoses Closed head injury with concussion S06.0XAA Retrograde amnesia R41.2 Type 2 diabetes mellitus without complication, without long-term current use of insulin E11.9 Diabetes mellitus type: type 2 Diabetes mellitus emt intermediate insulin use: without half-way use Diabetes mellitus complication status: without complication Hypertension, unspecified type I10 Hypertension type: unspecified GERD (gastroesophageal reflux disease) K21.9 (3) Diabetes mellitus Diabetes mellitus type: type 2 Diabetes mellitus half-way insulin use: w ithout emt intermediate use Diabetes mellitus complication status: without complication Qualified Code(s): E11.9 - Type 2 diabetes mellitus without complications (4) Hypertension Hypertension type: unspecified Qualified Code(s): I10 - Essential (primary) hypertension
[2025-02-09] MEDS ORDERED: GLUCOSE 10 TAB/TUBE PO PRN (20:27)
[2025-02-09] MEDS ORDERED: ONDANSETRON INJ 2 MG/ML 2 ML VIAL IV PRN (20:27)
[2025-02-09] MEDS ORDERED: GLUCAGON FOR INJ 1 MG VIAL SQ PRN (20:27)
[2025-02-09] MEDS ORDERED: GLUCOSE 40% GEL 15 GM TUBE PO PRN (20:27)
[2025-02-09] MEDS ORDERED: DEXTROSE 50% 50 ML SYRINGE IV PRN (20:27)
[2025-02-09] MEDS ORDERED: CARBOHYDRATES FOR HYPOGLYCEMIA PO PRN (20:27)
[2025-02-09] MEDS: SODIUM CHLORIDE 0.9% 1,000 ML IV SCH (21:52)
[2025-02-09] MEDS: INSULIN ASPART PER UNIT CHARGE SC SCH (21:53)
[2025-02-09 23:42] VITALS: RESP 18
[2025-02-09] MEDS: ACETAMINOPHEN 325 MG TAB PO PRN (23:51)
[2025-02-10 04:45] VITALS: TEMP 97.9
[2025-02-10] MEDS: FAMOTIDINE 20 MG TAB PO SCH (08:30)
[2025-02-10] MEDS: CALCIUM 600MG + VIT D 400 IU TAB PO SCH (08:30)
[2025-02-10] MEDS: CHOLECALCIFEROL 25 MCG (1000 UNITS) TAB PO SCH (08:30)
[2025-02-10] MEDS: ROSUVASTATIN CALCIUM 10 MG TAB PO SCH (08:31)
[2025-02-10] MEDS: PANTOprazole 40 MG TAB PO SCH (08:31)
[2025-02-10 08:33] VITALS: O2SAT 95
--- NOTE | 2025-02-10 10:38 | Discharge Summary ---
Discharge Summary Date of Service February 10, 2025 Principal Dx & Hospital Course #1 = Principal Diagnosis (1) Closed head injury with concussion: It appears the patient fell while she was ambulating and struck the left side of her head and face suffering contusions and abrasions but fortunately no fracture seen on multiple CT scans. Ice applications for the first 24 hours to help control the swelling. Supportive care (2) Retrograde amnesia: The patient has no recollection of current events. Her mental status has already improved according to the family. Supportive care (3) Diabetes mellitus: ADA diet. Hold metformin. Sliding scale coverage if needed (4) Hypertension: Telmisartan and amlodipine are currently on hold. Both may be restarted tomorrow, February 11. Baseline EKG is unremarkable. Telemetry (5) GERD (gastroesophageal reflux disease): Continue Pepcid and Protonix which she takes at home Plan Home today, February 10 Admission HPI Per Admitting Provider 79-year-old female in good health who apparently tripped and fell suffering contusions to her left face and scalp accompanied by retrograde amnesia. She has no recollection whatsoever of the events. Fortunately, her CT scans reveal no bone fractures. She does have the bruising and contusions of the left forehead left periorbital area and left cheek area. She is applying ice to these areas while in the ED. Family states that she was alone when this occurred and the patient has no recollection of the events. She cannot tell me you if she felt lightheaded before the event or had any chest pain shortness of breath or palpitations. X-rays are negative for fracture. EKG reveals normal sinus rhythm. Head CT scan is negative. She is placed in observation with telemetry for further evaluation Discharge Exam General-alert and oriented x3, no fever, no chills HEENT-contusions bruising and swelling left temporal area, left forehead, left cheek area and left periorbital areas, pupils equal and reactive to light, extraocular muscles intact Neck-no lymphadenopathy or thyromegaly, trachea midline Chest-clear to auscultation. No rales, wheezing or rhonchi Cardiac-regular rate and rhythm, normal S1 and S2 Abdomen-normal bowel sounds, no hepatosplenomegaly Extremities-no cyanosis, clubbing, or edema Neuro-cranial nerves II through XII intact, motor and sensory function within normal limits, strength symmetrical, no focal deficits Psych-normal affect, normal mood Discharge Plan Discharge Items Patient Disposition: Home - Self-Care Reason For Visit: SUSPECTED CONCUSSION, FALL, CHI Discharge Diagnosis: Suspected mechanical fall with concussion and retrograde amnesia, left facial contusions, closed head injury Activity: Resume your previous activity Non-emergency contact: Primary Care Provider Call non-emergency contact if: your symptoms worsen Follow-up/Referrals: ProSimba MD [Primary Care Provider] - 02/16/25 3:00 pm Diet: Carb Consistent or DM2 Addtl Attending Provider Instructions: May restart amlodipine and telmisartan tomorrow, February 11. See PCP within 1 week or as soon as possible. Pending Studies at Discharge: No Stand-Alone Forms: [employer], Smoking Cessation Medications and DC Order Prescriptions: New rosuvastatin 10 mg Tablet 10 mg PO DAILY Qty: 0 0RF Continued (DME) OneTouch Verio test strips Strip See Rx Instructions .ROUTE .MEDSUPPLY Qty: 200 3RF Rx Instructions: TEST ONCE DAILY (DME) FreeStyle Meaghan 2 Sensor Kit See Rx Instructions .Route Qty: 2 5RF Rx Instructions: Apply one sensor every 14 days to monitor glucose continuously. (DME) lancets 33 gauge misc See Rx Instructions .ROUTE .MEDSUPPLY Qty: 200 3RF Rx Instructions: TEST ONCE DAILY alendronate [Fosamax] 70 mg tablet 70 mg PO WK Qty: 12 3RF Rx Instructions: wednesdays metformin 500 mg tablet 500 mg PO BID Qty: 180 3RF Hold Instructions: Resume on 09/28/24. Rx Instructions: once daily with lunch (DME) blood-glucose meter [OneTouch Verio Flex Start] Kit See Rx Instructions .ROUTE .MEDSUPPLY Qty: 1 0RF Rx Instructions: TEST ONCE DAILY calcium citrate-vitamin D3 315 mg- 250 unit tablet 1 tab PO QAM glucosamine sulfate 500 mg capsule 500 mg PO Q OTHER DAY Rx Instructions: pt states that she takes medication every other day cholecalciferol (vitamin D3) 25 mcg (1,000 unit) capsule 2,000 unit PO QAM famotidine [Acid Boathouse Keeper (famotidine)] 20 mg tablet 20 mg PO QAM Qty: 90 3RF multivitamin Tablet 1 tab PO Q OTHER DAY Rx Instructions: pt states that she takes medication every other day telmisartan 80 mg tablet 80 mg PO QAM amlodipine 2.5 mg tablet 2.5 mg PO QPM Rx Instructions: Take with 5 mg tablet amlodipine 5 mg tablet 5 mg PO QPM Rx Instructions: Take with 2.5 mg tablet pantoprazole 20 mg tablet,delayed release (DR/EC) 20 mg PO DAILY PRN (Reason: Heartburn) rosuvastatin 10 mg tablet 10 mg PO QPM Discharge Orders: Discharge Order (Routine); Ordered 02/10/25 Ordered By: Juan Navarrete Admission Data Admit Date/Time: 02/09/25 17:09 Attending Provider: Juan Navarrete Admit Provider: Juan Navarrete Primary Care Provider: Simba Ray Other Providers: Juan Navarrete Hospital Stay Data Consultations 02/09/25 16:37 ED Decision to Admit Stat Diagnostic Imagining Performed 02/09/25 13:22 CT angio chest PE protocol Stat CT face [CT facial bones wo con] Stat 02/09/25 13:23 CT abd pelvis IV con only Stat CT cervical spine wo con Stat CT head/brain wo con Stat Pending Results Patient Have Any Pending Studies at Discharge: No Discharge Instructions Given to Patient (Per Discharging Provider) May restart amlodipine and telmisartan tomorrow, February 11. See PCP within 1 week or as soon as possible. Total Time Total Time Spent Total Time Spent (In Minutes): 45-minute Coding Level of Care Code 60995 INP/OBS DISCH >30 MIN Diagnoses Closed head injury with concussion S06.0XAA Retrograde amnesia R41.2 Type 2 diabetes mellitus without complication, without long-term current use of insulin E11.9 Diabetes mellitus type: type 2 Diabetes mellitus halfway insulin use: without halfway use Diabetes mellitus complication status: without complication Hypertension, unspecified type I10 Hypertension type: unspecified GERD (gastroesophageal reflux disease) K21.9
[2025-02-10 11:17] VITALS: BP 134/71; PULSE 83
== END 2025-02-10 11:53 | disposition home or self-care (01) ==
LOC: SUATTDRO → 2N 13:13 → ED 13:13 → 2N 20:04